=== PATIENT | female | born 1995 | race Caucasian/White ===

== ENCOUNTER 2022-12-30 18:08 | Observation (INO) | payer BC, SELFPAY ==
[2022-12-30 18:32] VITALS: BMI 39.5
--- NOTE | 2022-12-30 18:32 | OBADM ---
This patient, YANN SANTILLAN, admitted to the OB room Labor/Delivery/Recovery 104 for observation. Patient/family oriented to hospital policies and general routines including ID bracelet, bed and alarms, visiting hours, pain management, procedures, bathroom and other care routines, personal items, smoking policy, room service/diet, and visiting hours. Patient/Family are encouraged to report perceived risks to care and to ask questions if they do not understand what they are told or what they should do.
--- NOTE | 2023-01-02 21:51 | PM.OBTRLD ---
OB - Triage/Final Diagnosis Visit Information Reason for evaluation: threatened labor Comments/Additional reasons for admission: I have assessed the risk for this patient, Vera Pack, and determined that she would benefit from observation care.
== END 2022-12-30 18:52 | disposition home or self-care (01) ==
PROVIDERS: Admitting Provider Obstetrics & Gynecology Gynecology; Visit Provider Obstetrics & Gynecology Gynecology
DX: O47.03 False labor before 37 completed weeks of gestation, third trimester (principal); Z3A.35 35 weeks gestation of pregnancy
CPT/HCPCS: G0378; G0379

== ENCOUNTER 2023-01-06 17:36 | Observation (INO) | payer BC, SELFPAY ==
[2023-01-06 18:04] VITALS: BP 121/83; PULSE 88
[2023-01-06 18:10] LABS: Appearance Urine Clear (Clear); Bilirubin Urine Negative (Negative); Blood Urine Negative (Negative); Color Urine Yellow (Yellow); Glucose Urine UA Negative (Negative); Ketones Urine Negative (Negative); Leukocyte Esterase Ur Negative LEU/UL (Negative); Nitrate Urine Negative (Negative); Protein Urine Negative (Negative); Urobilinogen Urine 0.2 mg/dL (<2.0)
[2023-01-06 18:15] VITALS: BP 121/80; PULSE 87
[2023-01-06 18:16] LABS: Add Urine Microscopic? NO
--- NOTE | 2023-01-06 19:09 | OBADM ---
This patient, Vera Pack, admitted to the OB room OB Post 112 for observation. Patient/family oriented to hospital policies and general routines including ID bracelet, bed and alarms, visiting hours, pain management, procedures, bathroom and other care routines, personal items, smoking policy, room service/diet, and visiting hours. Patient/Family are encouraged to report perceived risks to care and to ask questions if they do not understand what they are told or what they should do.
--- NOTE | 2023-01-09 19:26 | P.PNOB_ITS ---
OB - Triage/Final Diagnosis Visit Information Reason for evaluation: threatened labor Comments/Additional reasons for admission: I have assessed the risk for this patient, Vera Pack, and determined that she would benefit from observation care. Evaluation Laboratory results: Laboratory Tests 01/06/23 18:00 Urine Color Yellow Urine Appearance Clear Urine pH 7.0 Ur Specific [place] 1.010 Urine Protein Negative Urine Glucose (UA) Negative Urine Ketones Negative Ur Blood (Man) Negative Urine Nitrate Negative Urine Bilirubin Negative Urine Urobilinogen 0.2 Leukocyte Esterase Rfl Negative
== END 2023-01-06 19:20 | disposition home or self-care (01) ==
PROVIDERS: Admitting Provider Obstetrics & Gynecology Gynecology; PCP Physician Assistant; Visit Provider Obstetrics & Gynecology Gynecology
DX: O47.9 False labor, unspecified (principal); Z3A.00 Weeks of gestation of pregnancy not specified
CPT/HCPCS: 81003; G0378; G0379

== ENCOUNTER 2023-01-23 04:55 | Inpatient (IN) | payer BC, SELFPAY ==
[2023-01-23] VITALS (245 sets, daily range): BP systolic 114–160; BP diastolic 65–121; PULSE 65–112; RESP 16; TEMP 36.5–37.2; O2SAT 96–100; BMI 39.1
--- NOTE | 2023-01-23 05:49 | LDADM ---
This patient, Vera Pack, was admitted to Labor/Delivery/Recovery 104 on 01/23/23 at 04:55. Plans for labor, pain management and were discussed with patient. Patient/family oriented to hospital policies and general routines including ID bracelet, bed and alarms, visiting hours, pain management, procedures, bathroom and other care routines, personal items, smoking policy, room service/diet and guest tray routines, security routines, and visiting hours. Patient/Family are encouraged to report perceived risks to care and to ask questions if they do not understand what they are told or what they should do. See OBIX for further documentation.
[2023-01-23 06:06] LABS: Basophils Percent Auto 0.1 % (0.2-1.2); Eosinophils Absolute Auto 0.1 K/mm3 (0-0.3); Eosinophils Percent Auto 0.7 % (0-4.4); Hematocrit 34.3 % (37.0-47.0); Hemoglobin 10.7 g/dL (12.0-15.0); Immature Granulocyte Absolute 0.04 K/mm3 (0.00-0.031); Immature Granulocyte Percent A 0.5 % (0-0.5); Lymphocytes Absolute Auto 1.72 K/mm3 (0.9-3.2); Lymphocytes Percent Auto 21.2 % (18.3-44.2); Mean Corpuscular HGB Conc 31.2 g/dl (32-36); Mean Corpuscular Hemoglobin 24.2 pg (26-34); Mean Corpuscular Volume 77.4 fl (80-100); Mean Platelet Volume 11.8 fl (7.4-10.4); Monocytes Absolute Auto 0.4 K/mm3 (0.1-0.6); Monocytes Percent Auto 5.4 % (2.6-8.5); Neutrophils Absolute Auto 5.8 K/mm3 (1.3-6.7); Neutrophils Percent Auto 72.1 % (45.5-73.1); Platelet Count Result 232 k/mm3 (150-375); Red Blood Count 4.43 M/mm3 (4.2-5.4); White Blood Count 8.1 K/mm3 (4.5-10.0)
[2023-01-23] MEDS: LACTATED RINGERS 1,000 ML 125 ML IV CONT ×3 (07:07→17:45)
[2023-01-23] MEDS: OXYTOCIN 30 UNITS/NS 500 ML 30 UNITS/500 ML BAG 6 UNITS IV CONT (07:13)
[2023-01-23] MEDS: ceFAZolin 2 GM/D5W 50 ML 2 GM/50 ML BAG IVPB ×3 (07:23→23:13)
--- NOTE | 2023-01-23 07:23 | WPDANESEPP ---
Anes - Eval Pre Procedure Procedure: labor epidural Date/Time: 01/23/23 07:23 Preop Diagnosis: labor pain Pre Op Diagnosis: IOL Patient Data Age: 27 Gender: F Height: 1.55 m Weight: 94 kg Last Vital Signs Pulse 86 01/23/23 07:01 BP 140/89 01/23/23 07:01 O2 Del Method Room Air 01/23/23 05:47 Allergies Allergy/AdvReac Type Severity Reaction Status Date / Time Penicillins Allergy Hives Verified 12/31/22 12:31 shellfish derived Allergy Hives Verified 12/31/22 12:31 Home Medications Medication Instructions Recorded Confirmed Type insulin NPH isoph U-100 human 100 26 unit subcut BID 12/30/22 01/23/23 History unit/mL subcutaneous suspension (Humulin N NPH U-100 Insulin (isophane susp)) insulin lispro 100 unit/mL 24 unit subcut BID 12/30/22 01/23/23 History subcutaneous solution (Humalog U-100 Insulin) metformin 1,000 mg tablet 1,000 mg PO BID 12/30/22 01/23/23 History Laboratory Tests 01/23/23 05:51 WBC 8.1 K/mm3 (4.5-10.0) RBC 4.43 M/mm3 (4.2-5.4) Hgb 10.7 L g/dL (12.0-15.0) Hct 34.3 L % (37.0-47.0) MCV 77.4 L fl (80-100) MCH 24.2 L pg (26-34) MCHC 31.2 L g/dl (32-36) RDW 15.0 H % (11.5-14.5) Plt Count 232 k/mm3 (150-375) MPV 11.8 H fl (7.4-10.4) Immature Gran % (Auto) 0.5 % (0-0.5) Neut % (Auto) 72.1 % (45.5-73.1) Lymph % (Auto) 21.2 % (18.3-44.2) [place] % (Auto) 5.4 % (2.6-8.5) Eos % (Auto) 0.7 % (0-4.4) Baso % (Auto) 0.1 L % (0.2-1.2) Lymph # (Auto) 1.72 K/mm3 (0.9-3.2) [place] # (Auto) 0.4 K/mm3 (0.1-0.6) Eos # (Auto) 0.1 K/mm3 (0-0.3) Baso # (Auto) 0.0 K/mm3 (0.0-0.1) Abs Immat Gran (auto) 0.04 H K/mm3 (0.00-0.031) Absolute Neuts (auto) 5.8 K/mm3 (1.3-6.7) Absolute Nucleated RBC 0.0 K/mm3 (0.0-0.012) Nucleated RBC % 0.0 % (0.0-0.2) RPR Pending Blood Type A Positive Antibody Screen Negative Patient hx anesthesia problems: none Family hx anesthesia problems: none Results Review: All pre-operative results and documents have been reviewed as part of the pre-operative evaluation. [facility] Family History Family History Mother Hypertension Grandparent Hypertension Grandparent Diabetes mellitus CHF (congestive heart failure) Father Diabetes mellitus Social History Social History Smoking status: Former smoker Tobacco type: cigarettes Smoking end date: 05/23/22 Substance use: never Lack of Transportation: No Lack of Food: Never True Current Housing: I Have Housing Concerned About Future Housing: No Difficulty Paying Gas/Electric Bills: No Difficulty Paying for Meds: No Currently Unemployed: YES Education: High School Diploma/GED Difficulty w/ Childcare or Family Care: No Spiritual care concerns: No Comments patient hx: DM, obese, asthma, anxiety Exam Day of Procedure 01/23/23 07:23 Patient weight: obese Lungs: normal air movement Airway: Mallampati scale class II Neurological: alert and oriented
[2023-01-23 07:41] LABS: Glucose Point of Care 57 mg/dl (65-105)
--- NOTE | 2023-01-23 07:43 | WPDOBADMIT ---
Obstetrics - Admit Note Admission Note: record reviewed. No pertinent additions to the history and/or any subsequent changes in the physical findings that are not consistent with the expected course of the were found. Additions to the history and/or subsequent changes in the physical findings follow. Here at 39wks for MIL secondary to DM. Patient has been well controlled with her DM throughout. Normal level II u/s and good NST's. FHTs reactive. Cervix 2/50/-2 anterior. AROM with clear fluid. Continue pitocin.
[2023-01-23 08:33] LABS: Glucose Point of Care 106 mg/dl (65-105)
[2023-01-23 12:52] LABS: Glucose Point of Care 57 mg/dl (65-105)
[2023-01-23 13:47] LABS: Glucose Point of Care 63 mg/dl (65-105)
--- NOTE | 2023-01-23 16:40 | PC.NURSE ---
1411 - Introductions were made and mother shared how she would like to feed her baby with . Encouraged mother to place [id number] until the first feeding if infant is stable and to wait on the weight to help stabilize, reduce stress, and improve latching by allowing time to explore parent's chest using instincts. Education was shared on how to protect her milk supply with latching infant and/or using hand expression to remove milk if doesn't latch in the first hour, then finger feed colostrum to the infant to preserve breast focus. Demonstration given on how to hand express using tool. Resources provided with educational trifold for bonding and feeding infant. Parents voiced understanding of information and to call if there is a request for assistance.
[2023-01-23 17:14] LABS: Glucose Point of Care 62 mg/dl (65-105)
[2023-01-23 23:31] LABS: Glucose Point of Care 82 mg/dl (65-105)
[2023-01-23 23:31] LABS: Glucose Point of Care 57 mg/dl (65-105)
[2023-01-24] VITALS (198 sets, daily range): BP systolic 97–163; BP diastolic 54–125; PULSE 59–136; RESP 16–18; TEMP 36.2–37.6; O2SAT 90–100
[2023-01-24] MEDS: OXYTOCIN 30 UNITS/NS 500 ML 30 UNITS/500 ML BAG 6 UNITS IV CONT (01:42)
[2023-01-24] MEDS: LACTATED RINGERS 1,000 ML 125 ML IV CONT ×2 (01:42→09:21)
[2023-01-24] MEDS: CALCIUM CARBONATE (TUMS) 500 MG (200 MG ELEMENTAL) 400 MG PO (03:00)
[2023-01-24 04:07] LABS: Glucose Point of Care 63 mg/dl (65-105)
[2023-01-24 04:39] LABS: Glucose Point of Care 104 mg/dl (65-105)
[2023-01-24] MEDS: ceFAZolin 2 GM/D5W 50 ML 2 GM/50 ML BAG IVPB ×3 (07:13→12:25)
--- NOTE | 2023-01-24 07:48 | PM.OBPNLAB ---
Pain Control Date/time seen: 01/24/23 07:48 Pain control: epidural Comments: comfortable Pelvic Exam Dilation (cm): 5 Effacement (%): 80 station: -2 Amniotic membrane status: Ruptured Contractions Monitor mode: Internal Contraction pattern: Regular Contraction intensity: Moderate Status status: Category l Assessment and Plan Pitocin rate (mU/min): 40 Assessment: induction ongoing Comments: slow progress of labor with contractions not adequate through much of night will stop pitocin and restart after 30 minutes tracing remains cat I and afebrile ancef for GBS d/w patient if cannot get contractions adequate after this change, may need to proceed with csection
[2023-01-24 08:05] LABS: Rapid Plasma Reagin Non-Reactive (NonReactive)
[2023-01-24 08:15] LABS: Glucose Point of Care 70 mg/dl (65-105)
--- NOTE | 2023-01-24 11:51 | PM.IMHP ---
H&P: HPI History of Present Illness Date/Time: 01/24/23 11:51 Chief Complaint: Failure to progress Narrative: 27-year-old 2 para 0 aborta 1 admitted at 39 weeks for medical induction of labor secondary to type 2 diabetes. Patient's labor has been very slow to progress and she has remained stalled at 5cm for approximately 12hours. heart tones remained category 1. Contraction pattern has had periods of activity that are adequate however most of the pattern is an adequate. Patient has been on Ancef since admission for group B strep with a penicillin allergy. She has remained afebrile and vitals have been stable. It was recommended to proceed with primary for failure to progress. Patient voices understanding and agrees to proceed. labs A positive; rubella nonimmune; RPR negative; hepatitis-B surface antigen negative; group B strep positive; HIV negative. Diabetes has been managed with insulin and diet and the most recent hemoglobin A1c was 5.4. Nonstress tests have been reactive and growth has been at approximately the 75th percentile. Review of Systems Review of Systems: not repeated day of surgery; patient states no changes in status [facility] Family History Family History Mother Hypertension Grandparent Hypertension Grandparent Diabetes mellitus CHF (congestive heart failure) Father Diabetes mellitus Social History Social History Smoking status: Former smoker Tobacco type: cigarettes Smoking end date: 05/23/22 Substance use: never Lack of Transportation: No Lack of Food: Never True Current Housing: I Have Housing Concerned About Future Housing: No Difficulty Paying Gas/Electric Bills: No Difficulty Paying for Meds: No Currently Unemployed: YES Education: High School Diploma/GED Difficulty w/ Childcare or Family Care: No Spiritual care concerns: No Meds Home Medications and Allergies Home Medications Medication Instructions Recorded Confirmed Type insulin NPH isoph U-100 human 100 26 unit subcut BID 12/30/22 01/23/23 History unit/mL subcutaneous suspension (Humulin N NPH U-100 Insulin (isophane susp)) insulin lispro 100 unit/mL 24 unit subcut BID 12/30/22 01/23/23 History subcutaneous solution (Humalog U-100 Insulin) metformin 1,000 mg tablet 1,000 mg PO BID 12/30/22 01/23/23 History Allergies Allergy/AdvReac Type Severity Reaction Status Date / Time Penicillins Allergy Hives Verified 12/31/22 12:31 shellfish derived Allergy Hives Verified 12/31/22 12:31 Vital Signs Vital Signs - 24 hr 01/23/23 11:52 01/23/23 11:57 01/23/23 12:01 Temperature Pulse Rate 74 Respiratory Rate Blood Pressure 148/85 H Pulse Oximetry 100 100 01/23/23 12:02 01/23/23 12:07 01/23/23 12:12 Temperature Pulse Rate Respiratory Rate Blood Pressure Pulse Oximetry 100 100 100 01/23/23 12:16 01/23/23 12:17 01/23/23 12:22 Temperature Pulse Rate 68 Respiratory Rate Blood Pressure 140/90 Pulse Oximetry 100 100 01/23/23 12:27 01/23/23 12:31 01/23/23 12:32 Temperature Pulse Rate 70 Respiratory Rate Blood Pressure 146/81 H Pulse Oximetry 100 100 01/23/23 12:37 01/23/23 12:42 01/23/23 12:46 Temperature Pulse Rate 68 Respiratory Rate Blood Pressure 137/79 Pulse Oximetry 100 100 01/23/23 12:47 01/23/23 12:52 01/23/23 12:57 Temperature Pulse Rate Respiratory Rate Blood Pressure Pulse Oximetry 100 100 100 01/23/23 13:01 01/23/23 13:02 01/23/23 13:07 Temperature Pulse Rate 70 Respiratory Rate Blood Pressure 147/91 H Pulse Oximetry 100 100 01/23/23 13:12 01/23/23 13:17 01/23/23 13:22 Temperature Pulse Rate 70 Respiratory Rate Blood Pressure 130/78 Pulse Oximetry 100 100 100
[2023-01-24 11:55] LABS: Glucose Point of Care 58 mg/dl (65-105)
--- NOTE | 2023-01-24 11:56 | WPDHPUPDATE1 ---
History and Physical Update Update Date/Time: 01/24/23 11:56 History and Physical has been reviewed, including an updated exam of the patient. There are NO changes in the patient's condition. Risks, benefits, and alternatives have been discussed and questions answered. Patient agrees to proceed with procedure.
[2023-01-24] MEDS: AZITHROMYCIN 500 MG/NS 250 ML 500 MG/250 ML BAG 250 MG IVPB (12:10)
[2023-01-24] MEDS: DEXTROSE 50% 25 GM/50 ML SYRINGE IV PUSH (12:10)
[2023-01-24] MEDS: ONDANSETRON INJ 4 MG/2 ML VIAL IV PUSH (12:15)
--- NOTE | 2023-01-24 12:38 | P.OP_ITS ---
Procedure Note - Detailed Date of Procedure 01/24/23 Pre-op Diagnosis intrauterine at 39 weeks type 2 diabetes failure to progress in labor Post-op Diagnosis Same Procedure Performed primary low-transverse section Surgeon Laurie Crawford MD Anesthesia Epidural Findings female infant 7lb 8oz in the left occiput posterior position with asynclitic head; Apgars 8 [id number] and 9 [id number]; normal-appearing tubes, ovaries, uterus Description of Procedure The patient is taken to the operating room and placed under anesthesia in the dorsal supine position with a leftward tilt. The IV apparently infiltrated on the way to the operating room. New IV was started. Accu-Chek just prior to leaving for the OR was 57. D50 was given IV. Once anesthesia was deemed adequate she was prepped and draped in the usual sterile fashion. A Pfannenstiel skin incision was made with a scalpel and carried down to the underlying layer of fascia with the scalpel nicking the fascia in the midline. The incision was extended laterally using Fam scissors. Ochsner was used to tent the fascia which was then dissected off using sharp and blunt dissection. The rectus muscles are in the midline and the peritoneum tented and entered with Metzenbaum scissors. The incision was extended with blunt traction. The Main O retractor was placed. The vesicouterine peritoneum was tented entered with Metzenbaum scissors and extended laterally using Metzenbaum scissors. The bladder flap was created digitally. The lower uterine segment was incised in a transverse fashion with the scalpel. The incision was extended laterally using blunt traction. The infant was brought up into the incision and delivered while the human resources executive assistant applied fundal pressure and the other human resources executive assistant and I pushed down on mons which was blocking the head delivery. head then delivered atraumatically and shoulders delivered while the human resources executive assistant continue to apply fundal pressure. Nuchal x2 was reduced. The cord was clamped and cut and the handed to the waiting nursery nurse and rotary drier feeder. Cord blood was taken for gases lab. The placenta was removed using manual traction. The uterus is cleared of all clots and debris. The uterine incision was closed using 0 Monocryl in a running locked fashion with the same suture used to imbricate. Good hemostasis is noted. The Main O retractor was removed and the fascia closed using 0 Vicryl in a running fashion. Subcutaneous tissues are irrigated and made hemostatic using Bovie cautery. Skin incision was closed using 4-0 Vicryl in a subcuticular fashion. Dermaflex was placed over the incision. Sponge, needle, and instrument counts are correct per the OR staff. Patient was awake taken to recovery in stable condition. Patient was given Ancef prior to incision and was given Zithromax during the start of the case. Estimated Blood Loss 385 Drains Yes ( Zuniga catheter) Packing No Pathology Yes ( placenta) Complications No immediate complications Condition Stable Disposition Floor
--- NOTE | 2023-01-24 12:44 | PM.OBDSVD ---
DS: Admitting Diagnosis Discharge Date 01/26/23 Admitting Diagnosis intrauterine at 39 weeks for medical induction of labor secondary to type 2 diabetes DS: Discharge Diagnosis Discharge Diagnosis (1) Failure to progress in labor: Code(s): O62.2 - Other uterine inertia Status: Acute (2) Diabetes: Code(s): E11.9 - Type 2 diabetes mellitus without complications Status: Acute (3) delivery delivered: Code(s): O82 - Encounter for delivery without indication Status: Acute OB - DS: Summary OB Procedures : NST, Ultrasound and Other ( diabetes management) OB Procedures Intrapartum: low cervical, transverse OB Procedures: : None Peripartum Data Delivery Method: Section Procedures: Procedures Operation Date: 01/24/23 12:00 <No data on this case meets the specified criteria> complications: none Status at Discharge Functional status at discharge: independent ambulation Overall status at discharge: patient is progressing back to baseline Time Spent with Patient Time attestation: Total time spent providing and/or coordinating discharge services: DS: Data Data Completed and Pending Labs on day of discharge: Labs from last 24 hours 01/24/23 01/24/23 01/24/23 11:53 08:07 04:37 POC Capillary Glucose 58 L* 70 104 RPR 01/24/23 01/23/23 01/23/23 04:04 23:28 23:02 POC Capillary Glucose 63 L 82 57 L* RPR 01/23/23 01/23/23 01/23/23 17:10 13:30 12:43 POC Capillary Glucose 62 L 63 L 57 L* RPR 01/23/23 05:51 POC Capillary Glucose RPR Non-reactive Discharge Plan Discharge Attending physician on discharge: Laurie Crawford Discharging Clinician: Laurie Crawford Anticipated Discharge Date/Time: 01/27/23 12:45 Patient Disposition: Home, Self-Care Activity: may shower, may drive after 2 weeks and pelvic rest Diet: diabetic Wound Care Instructions: incision open to air Patient Instructions: Antibiotic Form Stand Alone Forms: General Discharge Information Follow-up/Referrals: Laurie Crawford MD [Physician] - 1 Week ( and 6 week) Discharge Medications: New hydrocodone-acetaminophen 5-325 mg Tablet 1 tablet PO Q3H PRN (Reason: Moderate Pain (4-6)) Qty: 10 0RF norethindrone (contraceptive) 0.35 mg tablet 0.35 mg PO DAILY Qty: 84 3RF Discontinued metformin 1,000 mg tablet 1,000 mg PO BID Humulin N NPH U-100 Insulin 100 unit/mL suspension 26 unit SUBCUT BID Rx Instructions: 26 in the morning, 12 at HS insulin lispro [Humalog U-100 Insulin] 100 unit/mL solution 24 unit subcut BID Rx Instructions: 22 at breakfast, 24 at dinner Date of admission: 01/23/23 04:55 Primary Care Provider: Sandy,Jorge Macias Admitting Provider: Laurie Crawford Attending physician on admission: Laurie Crawford Condition: Stable
[2023-01-24 13:49] LABS: Glucose Point of Care 117 mg/dl (65-105)
--- NOTE | 2023-01-24 14:55 | OBPPTRN ---
Patient transferred to post room #284 via stretcher. Support person present. Oriented to unit, room, information board, rooming in, admission packet and security measures. Patient verbalizes understanding.
--- NOTE | 2023-01-24 15:06 | SUR.PHASEI ---
1240: epidural removed in OR
[2023-01-24] MEDS: KETOROLAC 30 MG/ML VIAL (*BKC) IV PUSH (15:25)
[2023-01-24 16:07] LABS: Glucose Point of Care 60 mg/dl (65-105)
[2023-01-24] MEDS: DOCUSATE SODIUM 100 MG CAPSULE PO (16:38)
[2023-01-24 16:47] LABS: Glucose Point of Care 116 mg/dl (65-105)
[2023-01-24 21:01] LABS: Glucose Point of Care 89 mg/dl (65-105)
[2023-01-25 04:00] VITALS: BP 116/84; PULSE 76; RESP 18; TEMP 36.4; O2SAT 98
[2023-01-25 04:41] LABS: Basophils Percent Auto 0.2 % (0.2-1.2); Eosinophils Absolute Auto 0.1 K/mm3 (0-0.3); Eosinophils Percent Auto 1.3 % (0-4.4); Hematocrit 32.5 % (37.0-47.0); Hemoglobin 9.9 g/dL (12.0-15.0); Immature Granulocyte Absolute 0.03 K/mm3 (0.00-0.031); Immature Granulocyte Percent A 0.3 % (0-0.5); Lymphocytes Absolute Auto 1.42 K/mm3 (0.9-3.2); Lymphocytes Percent Auto 16.4 % (18.3-44.2); Mean Corpuscular HGB Conc 30.5 g/dl (32-36); Mean Corpuscular Volume 78.9 fl (80-100); Mean Platelet Volume 11.8 fl (7.4-10.4); Monocytes Absolute Auto 0.6 K/mm3 (0.1-0.6); Monocytes Percent Auto 7.4 % (2.6-8.5); Neutrophils Absolute Auto 6.5 K/mm3 (1.3-6.7); Neutrophils Percent Auto 74.4 % (45.5-73.1); Platelet Count Result 187 k/mm3 (150-375); Red Blood Count 4.12 M/mm3 (4.2-5.4); Red Cell Distribution Width 15.4 % (11.5-14.5); White Blood Count 8.7 K/mm3 (4.5-10.0)
--- NOTE | 2023-01-25 07:30 | PC.NURSE ---
PT introductions made and plan of care discussed per post op c section, pain management, breast feeding, pumping and daily care activities. PT and fob both recipients of such instructions and no barriers to learning identified at this time. PT received such instructions this shift per one to one discussion mom baby care guide and demonstrations. PT verbalized understanding of such care.
[2023-01-25] MEDS: SIMETHICONE 80 MG TAB.CHEW PO ×2 (09:20→15:29)
[2023-01-25] MEDS: POLYSACCHARIDE IRON COMPLEX 150 MG CAPSULE PO ×2 (09:21→15:28)
[2023-01-25] MEDS: IBUPROFEN 600 MG TABLET PO ×2 (09:21→15:26)
[2023-01-25] MEDS: DOCUSATE SODIUM 100 MG CAPSULE PO ×2 (09:22→15:28)
[2023-01-25] MEDS: MULTIVIT/MIN/PREN/FOL AC/IRON TABLET 1 TAB PO (09:22)
[2023-01-25] MEDS: HYDROcodone/acetaminophen (*CRX) 10-325 MG TABLET 1 TAB PO (09:22)
[2023-01-25] MEDS: LIDOCAINE 5% PATCH 1 PATCH TRANSDERM (09:23)
[2023-01-25] MEDS: LANOLIN (LANSINOH) 7.5 GM CREAM 1 APPLIC TOPICAL (09:23)
[2023-01-25 09:30] VITALS: BP 128/72; PULSE 72; RESP 18; TEMP 36.9; O2SAT 99
--- NOTE | 2023-01-25 09:46 | PM.OBPNVD ---
OB - PN: Subj Subjective Date/time seen: 01/25/23 09:46 Patient comments: no complaints and pain well controlled baby status: doing well OB - PN: Obj Data Labs 01/25/23 03:15 Labs: Laboratory Results - last 24 hr 01/24/23 01/24/23 01/24/23 11:53 12:18 15:31 WBC RBC Hgb Hct MCV MCH MCHC RDW Plt Count MPV Immature Gran % (Auto) Neut % (Auto) Lymph % (Auto) [place] % (Auto) Eos % (Auto) Baso % (Auto) Lymph # (Auto) [place] # (Auto) Eos # (Auto) Baso # (Auto) Abs Immat Gran (auto) Absolute Neuts (auto) Absolute Nucleated RBC Nucleated RBC % POC Capillary Glucose 58 L* 117 H 60 L 01/24/23 01/24/23 01/25/23 16:41 20:58 03:15 WBC 8.7 RBC 4.12 L Hgb 9.9 L Hct 32.5 L MCV 78.9 L MCH 24.0 L MCHC 30.5 L RDW 15.4 H Plt Count 187 MPV 11.8 H Immature Gran % (Auto) 0.3 Neut % (Auto) 74.4 H Lymph % (Auto) 16.4 L [place] % (Auto) 7.4 Eos % (Auto) 1.3 Baso % (Auto) 0.2 Lymph # (Auto) 1.42 [place] # (Auto) 0.6 Eos # (Auto) 0.1 Baso # (Auto) 0.0 Abs Immat Gran (auto) 0.03 Absolute Neuts (auto) 6.5 Absolute Nucleated RBC 0.0 Nucleated RBC % 0.0 POC Capillary Glucose 116 H 89 OB - PN A/P Assessment and Plan (1) Diabetes: Code(s): E11.9 - Type 2 diabetes mellitus without complications Status: Acute Assessment and Plan: Holding Metformin for low sugars Plan day: 1 Plan: routine care Time Spent With Patient Time: Total time spent is greater than 50% in coordination of care (as documented) at patient's floor/unit and/or counseling patient: Exam Narrative: inc c/d/i : Bimanual exam- vagina & uterus: other (Uterus firm, nt @U)
[2023-01-25 10:57] LABS: Glucose Point of Care 120 mg/dl (65-105)
--- NOTE | 2023-01-25 13:13 | WPDANLDPN2 ---
Anes-Prog Note L&D Date/Time: 01/25/23 13:13 Comfortable throughout: section Neuraxial method: epidural Epidural/Spinal procedure site: clean & non-tender Neuro status: Neuro function grossly intact. Cardiovascular status: normal Respiratory status: normal Airway patency: baseline Mental status: baseline Post-Op hydration status: normal Vital Signs: Last Vital Signs Temp 36.9 C 01/25/23 09:30 Pulse 72 01/25/23 09:30 Resp 18 01/25/23 09:30 BP 128/72 01/25/23 09:30 Pulse Ox 99 01/25/23 09:30 O2 Del Method Room Air 01/25/23 09:30 Pain score (VAS): 3/10 I/O: Intake & Output 01/24/23 01/25/23 01/25/23 23:59 07:59 15:59 Intake Total 480 Output Total 250 1175 Balance -250 -1172 480 Post-procedural complaints: none Patient feedback: Patient satisfied with anesthetic care.
[2023-01-25] MEDS: HYDROcodone/acetaminophen (*CRX) 5-325 MG TABLET 1 TAB PO ×2 (15:27→19:32)
[2023-01-25 17:26] LABS: Glucose Point of Care 112 mg/dl (65-105)
[2023-01-25 18:57] LABS: Glucose Point of Care 102 mg/dl (65-105)
[2023-01-25 20:00] VITALS: BP 134/81; PULSE 70; RESP 18; TEMP 36.7; O2SAT 98
--- NOTE | 2023-01-26 07:00 | PC.NURSE ---
PT introductions made and plan of care discussed per post op c section, pain management, breast feeding, pumping and daily care activities and pending discharge to home. PT and fob both recipients of such instructions and no barriers to learning identified at this time. PT received such instructions this shift per one to one discussion mom baby care guide and demonstrations. PT verbalized understanding of such care.
--- NOTE | 2023-01-26 08:01 | PM.OBPNVD ---
OB - PN: Subj Subjective Date/time seen: 01/26/23 08:01 Patient comments: no complaints, pain well controlled, incisional pain and tolerating diet [place] baby status: doing well OB - PN: Obj Data Labs 01/25/23 03:15 Labs: Laboratory Results - last 24 hr 01/25/23 01/25/23 01/25/23 10:54 17:23 18:53 POC Capillary Glucose 120 H 112 H 102 OB - PN A/P Plan day: 2 Plan: routine care, discharge home and other (Plans micronor for bc) Time Spent With Patient Time: Total time spent is greater than 50% in coordination of care (as documented) at patient's floor/unit and/or counseling patient: Exam Narrative: inc c/d/i : Bimanual exam- vagina & uterus: other (Uterus firm, nt @U)
[2023-01-26 09:45] VITALS: BP 151/93; PULSE 81; RESP 18; TEMP 37.6; O2SAT 100
[2023-01-26] MEDS: SIMETHICONE 80 MG TAB.CHEW PO (09:53)
[2023-01-26] MEDS: LIDOCAINE 5% PATCH 1 PATCH TRANSDERM (09:53)
[2023-01-26] MEDS: IBUPROFEN 600 MG TABLET PO (09:53)
[2023-01-26] MEDS: POLYSACCHARIDE IRON COMPLEX 150 MG CAPSULE PO (09:54)
[2023-01-26] MEDS: MULTIVIT/MIN/PREN/FOL AC/IRON TABLET 1 TAB PO (09:54)
[2023-01-26] MEDS: DOCUSATE SODIUM 100 MG CAPSULE PO (09:54)
[2023-01-26] MEDS: HYDROcodone/acetaminophen (*CRX) 5-325 MG TABLET 1 TAB PO (09:54)
--- NOTE | 2023-01-26 10:15 | PC.NURSE ---
Patient viewed the discharge video Mother & Baby Care, The First Two Weeks . Patient was given the opportunity and encouraged to ask questions. Patient verbalized understanding of information shared and has been given the mother/baby guide for home reference. PT received discharge instructions per protocol and verbalized understanding of such care.
[2023-01-26] MEDS: MEASLES,MUMPS,RUBELLA VACCINE 0.5 ML VIAL (10:40)
--- NOTE | 2023-01-26 10:45 | PC.NURSE ---
Patient discharged to home ambulatory accompanied by fob and and taken to waiting car. Follow up appts confirmed
[2023-01-27 14:22] VITALS: BP 144/85; PULSE 85; RESP 18; TEMP 37.2; O2SAT 100
== END 2023-01-26 10:45 | disposition home or self-care (01) | DRG 788 ==
LOC: ANHLDR 01-24 12:45 → ANHOB2 01-24 15:00
PROVIDERS: Admitting Provider Obstetrics & Gynecology Gynecology; PCP Physician Assistant; Visit Provider Obstetrics & Gynecology Gynecology
PROC: 10D00Z1 Extraction of Products of Conception, Low, Open Approach (ICD-10-PCS; CPT 59514; principal; 2023-01-24 12:00)
DX: O24.12 Pre-existing type 2 diabetes mellitus, in childbirth (principal); Z37.0 Single live birth; Z3A.39 39 weeks gestation of pregnancy; O99.824 Streptococcus B carrier state complicating childbirth; O69.81X0 Labor and delivery complicated by cord around neck, without compression, not applicable or unspecified; O62.2 Other uterine inertia
CPT/HCPCS: 36415; 82948; 85025; 86592; 86850; 86900; 86901; 88307; 90710; A9270; J0456; J0690; J1885; J2274; J2405; J2590; J2795; J7120

== ENCOUNTER 2023-08-15 12:57 | Emergency (ER) | payer BC, SELFPAY ==
--- NOTE | ~2023-08-15 | US_ITS ---
CORRECTED REPORT corrected exam description [facility] This report was recreated on 08/18/23. Original report was NCE WHEEL ARM BURNISHER EXAMINATION: US OB transvaginal DATE: 08/15/2023 17:29 INDICATION: Threatened miscarriage. TECHNIQUE: Real-time transabdominal and transvaginal pelvic ultrasound was performed. COMPARISON: None. FINDINGS: TRANSABDOMINAL ULTRASOUND: The uterus measures 8.5 x 4.8 x 4.4 cm. TRANSVAGINAL ULTRASOUND: The endometrial complex measures 2.1 cm in thickness. There is no visible intrauterine gestational sac. The right ovary measures 3.6 x 2.2 x 3.3 cm. The left ovary measures 3.6 x 2.3 x 3.5 cm. There is physiologic free fluid in the pelvis. IMPRESSION: 1. No visible intrauterine gestational sac, which may be normal in early . Spontaneous , ectopic , and gestational trophoblastic disease cannot be excluded. Serial beta hCGs are recommended. Reviewed, dictated and finalized at location E. NCE WHEEL ARM BURNISHER MTDD IMPRESSION: 1. No visible intrauterine gestational sac, which may be normal in early pregn claude. Spontaneous , ectopic , and gestational trophoblastic di sease cannot be excluded. Serial beta hCGs are recommended.
[2023-08-15 12:59] VITALS: BP 145/85; PULSE 84; RESP 17; TEMP 36.6; O2SAT 100
--- NOTE | 2023-08-15 15:16 | ED.FEMALEGU ---
HPI - Female Genitourinary General Chief complaint: Vaginal Bleeding Stated complaint: 6 weeks preg vag bleed Time Seen by Provider: 08/15/23 15:16 Source: patient Mode of arrival: ambulatory Limitations: no limitations History of Present Illness HPI Narrative: Vera is a 27-year-old female patient presenting to the ER today with complaints of vaginal bleeding. She reports that she is 6 weeks is having some lower abdominal cramping as well. Denies any urinary symptoms. States that she has seen her OBGYN-Yvette and her beta hCG was over 800 at that time. Related Data Allergies Allergy/AdvReac Type Severity Reaction Status Date / Time Penicillins Allergy Hives Verified 12/31/22 12:31 shellfish derived Allergy Hives Verified 12/31/22 12:31 Review of Systems Review of Systems: Pertinent positives per HPI. Patient denies any fever, chills, rash, headache, visual changes, dizziness, cough, runny nose, sore throat, shortness of breath, chest pain, palpitations, nausea, vomiting, diarrhea, constipation, or any urinary issues. [facility] Family History Family History Mother Hypertension Grandparent Hypertension Grandparent Diabetes mellitus CHF (congestive heart failure) Father Diabetes mellitus Social History Social History Smoking status: Former smoker Tobacco type: cigarettes Smoking end date: 05/23/22 Substance use: never Lack of Transportation: No Lack of Food: Never True Current Housing: I Have Housing Concerned About Future Housing: No Difficulty Paying Gas/Electric Bills: No Difficulty Paying for Meds: No Currently Unemployed: YES Education: High School Diploma/GED Difficulty w/ Childcare or Family Care: No Spiritual care concerns: No Comments At the time of my signature, I reviewed and agree with the nursing past medical, surgical, social, and family history. There is no relevant family history pertinent to the patient complaint. Course Course Emergency Course: Portions of this record may have been created with voice recognition software. Vital Signs Vital signs: Vital Signs Temperature 36.6 C 08/15/23 12:59 Pulse Rate 84 08/15/23 12:59 Respiratory Rate 17 08/15/23 12:59 Blood Pressure 145/85 H 08/15/23 12:59 Pulse Oximetry 100 08/15/23 12:59 Temperature 36.6 C 08/15/23 12:59 Pulse Rate 84 08/15/23 12:59 Respiratory Rate 17 08/15/23 12:59 Blood Pressure 145/85 H 08/15/23 12:59 Pulse Oximetry 100 08/15/23 12:59 Vital signs reviewed MDM - Female Genitourinary MDM Narrative Medical decision making narrative: At the time of visit patient is resting comfortably on the exam table. Patient appears to be nontoxic. Labs: CBC shows white blood cell count of 9.4, H&H is 13.5 in 42.9, platelet count is 248, anti coagulation studies within normal limits, chemistry show sodium level 135, potassium of 4.2, chloride 102, CO2 of 24, BUN of 12, creatinine 0.7, GFR is greater than 60, glucose is 212, liver function test within normal limits, beta-hCG is 662. UA shows red urine with turbid appearance 2+ protein, trace of glucose, 2+ blood, 1+ bili, and 1+ leuko Estrace. Blood type is A positive within it negative antibody screen. Diagnostics: ultrasound shows no obvious gestational sac but could be due to early Plan: Contacted Dr. Christensen and ran patient's case by him and he is agreeable to have a repeat beta-hCG completed in 2 days patient comes follow-up with her OBGYN Yvette on Friday. Supportive measures were discussed with the patient and they voiced understanding discharge instructions and agrees to treatment plan. Return precautions reviewed Differential Diagnosis Differential diagnosis: Likely urinary tract infection and other (Threatened miscarriage) Lab Data 08/15/23 16:19 08/15
[2023-08-15 16:29] LABS: Basophils Percent Auto 0.3 % (0.2-1.2); Eosinophils Absolute Auto 0.2 K/mm3 (0-0.3); Eosinophils Percent Auto 2.3 % (0-4.4); Hematocrit 42.9 % (37.0-47.0); Hemoglobin 13.5 g/dL (12.0-15.0); Immature Granulocyte Absolute 0.02 K/mm3 (0.00-0.031); Immature Granulocyte Percent A 0.2 % (0-0.5); Lymphocytes Absolute Auto 2.13 K/mm3 (0.9-3.2); Lymphocytes Percent Auto 22.7 % (18.3-44.2); Mean Corpuscular HGB Conc 31.5 g/dl (32-36); Mean Corpuscular Hemoglobin 25.1 pg (26-34); Mean Corpuscular Volume 79.9 fl (80-100); Mean Platelet Volume 10.1 fl (7.4-10.4); Monocytes Absolute Auto 0.5 K/mm3 (0.1-0.6); Monocytes Percent Auto 5.1 % (2.6-8.5); Neutrophils Absolute Auto 6.5 K/mm3 (1.3-6.7); Neutrophils Percent Auto 69.4 % (45.5-73.1); Platelet Count Result 248 k/mm3 (150-375); Red Blood Count 5.37 M/mm3 (4.2-5.4); White Blood Count 9.4 K/mm3 (4.5-10.0)
[2023-08-15 16:38] LABS: Alanine Aminotransferase 34 U/L (6-35); Albumin Level 4.2 g/dL (3.5-5.1); Alkaline Phosphatase 65 U/L (38-126); Anion Gap 9 mmol/L (8-16); Aspartate Amino Transferase 25 U/L (14-36); Bilirubin,Total 0.3 mg/dL (0.2-1.3); Blood Urea Nitrogen 12 mg/dL (7-17); Calcium 9.5 mg/dL (8.4-10.2); Carbon Dioxide 24 mmol/L (22-30); Chloride 102 mmol/L (98-107); Estimated CRCL calculation 107 ml/min; Estimated Glomerular Filt Rate > 60; Glucose 212 mg/dL (65-110); Potassium 4.2 mmol/L (3.4-5.0); Sodium 135 mmol/L (137-145)
[2023-08-15 16:56] LABS: Prothrombin Time 13.5 Seconds (11.1-14.7)
[2023-08-15 16:57] LABS: Appearance Urine Turbid (Clear); Bilirubin Urine 1+ (Negative); Blood Urine 2+ (Negative); Color Urine Red (Yellow); Glucose Urine UA Trace mg/dL (Negative); Ketones Urine Negative (Negative); Leukocyte Esterase Ur 1+ LEU/UL (Negative); Nitrate Urine Negative (Negative); Partial Thromboplastin Time 26.6 SECONDS (22.3-36.8); Protein Urine 2+ mg/dL (Negative); Specific Grav Ur 1.024 (1.001-1.035); Urobilinogen Urine 0.2 mg/dL (<2.0)
[2023-08-15 16:58] LABS: Add Urine Microscopic? NO
[2023-08-15 18:20] VITALS: BP 125/85; PULSE 90; RESP 16; O2SAT 100
== END 2023-08-15 18:20 | disposition home or self-care (01) ==
PROVIDERS: Emergency Provider Nurse Practitioner Family
DX: O20.0 Threatened abortion (principal); Z87.891 Personal history of nicotine dependence; Z3A.01 Less than 8 weeks gestation of pregnancy
CPT/HCPCS: 36415; 76801; 76817; 80053; 81003; 81025; 84702; 85025; 85461; 85610; 85730; 86850; 86900; 86901; 99284

== ENCOUNTER 2023-08-17 11:40 | Outpatient (CLI) | payer BC, SELFPAY | END 2023-08-17 11:41 | disposition home or self-care (01) | PROVIDERS: Referring Provider Obstetrics & Gynecology Gynecology; Visit Provider Nurse Practitioner Family | DX: O20.0 Threatened abortion (principal); Z3A.00 Weeks of gestation of pregnancy not specified | CPT/HCPCS: 36415; 84702 ==

== ENCOUNTER 2024-01-23 11:41 | Outpatient (CLI) | payer OTHER, SELFPAY ==
--- NOTE | ~2024-01-23 | US_ITS ---
EXAMINATION: US OB transvaginal DATE: 01/23/2024 12:19 INDICATION: Uncertain viability. TECHNIQUE: Real-time transvaginal pelvic ultrasound was performed. COMPARISON: Ultrasound 08/15/2023 FINDINGS: The uterus measures 8.5 x 5.2 x 5.6 cm. There is an intrauterine gestational sac. A yolk sac is ident ified. The crown rump length measures 7 mm, which correlates with an estimated gestational age of 6 weeks and 4 day(s) (+/-) 4 day(s). heart motion is identified measuring 139 beats per min [place] (bpm) by M-mode Doppler. The right ovary measures 4.0 x 3.1 x 2.5 cm. The left ovary measures 3.3 x 2.0 x 3.0 cm. There is no free fluid in the pelvis. IMPRESSION: 1. Single living intrauterine gestation with estimated date of delivery of 09/13/2024. Reviewed, dictated and finalized at location A. IMPRESSION: 1. Single living intrauterine gestation with estimated date of delivery of 08/22.
== END 2024-01-23 11:42 ==
PROVIDERS: PCP Physician Assistant; Visit Provider Obstetrics & Gynecology Gynecology
DX: O36.80X0 Pregnancy with inconclusive fetal viability, not applicable or unspecified (principal); Z3A.00 Weeks of gestation of pregnancy not specified
CPT/HCPCS: 76817

== ENCOUNTER 2024-06-10 08:48 | Outpatient (CLI) | payer OTHER, SELFPAY ==
[2024-06-10 09:31] VITALS: BP 116/73; PULSE 90
[2024-06-10 09:44] VITALS: BP 116/73; PULSE 90
[2024-06-10 09:55] LABS: OBXCEM ROM Plus Negative (Negative)
== END 2024-06-10 09:55 | disposition home or self-care (01) ==
LOC: ANHOBOP 08:53 → ANHOBPP 09:01
PROVIDERS: PCP Physician Assistant; Visit Provider Obstetrics & Gynecology Gynecology
DX: O42.90 Premature rupture of membranes, unspecified as to length of time between rupture and onset of labor, unspecified weeks of gestation (principal); Z3A.00 Weeks of gestation of pregnancy not specified
CPT/HCPCS: 59025; 84112; 99199

== ENCOUNTER 2024-08-05 17:12 | Outpatient (CLI) | payer OTHER, SELFPAY ==
--- OUTSIDE RECORDS SUMMARY | 2024-08-05 17:19 | XMS_ITS | Clinical Summary ---
Author Organization [facility] Address [address] [place] [address] Care Team Providers Care Wheat Cleaner Name Role Phone Unavailable Primary Care Provider Unavailabl e Source Comments [facility],non-owned Affiliates and Associated Physician Practices is amultiple site organization consisting of ambulatory clinics and hospital sitesin [place], [place], [place] and [place]. This disclosure is being madepursuant to the Care Everywhere program and may not contain all information available regarding this patient. Last updated 18.[facility] Social History Tobacco Use Types Packs/Day Years Used Date Smoking Tobacco: Never Assessed Sex and Gender Information Value Date Recorded Sex Assigned at Not on file Gender Identity Not on file Sexual Orientation Not on file Plan of Treatment Health Maintenance Due Date Last Done Comments PAP SMEAR 1994 HIV SCREENING 2009 HEPATITIS C SCREENING 09/01/2012 DTAP/TDAP/TD VACCINES (1 - Tdap) 2013 HEPATITIS B VACCINE (1 of 3 - 19+ 3-dose series) 2013 COVID-19 VACCINE ( - 2023-2 5 season) 2024 INFLUENZA VACCINE (#1) 2024 DEPRESSION SCREENING 06/23/2024 ZOSTER VACCINE (1 of 2) 2044 HIB VACCINE Aged Out No longer eligi ble based on patient's age to complete this topic HPV VACCINE Aged Out No longer eligi ble based on patient's age to complete this topic MENINGOCOCCAL (Group B) VACCINE Aged Out No longer eligible based on patient's age to complete this topic MENINGOCOCCAL VACCINE Aged Out No deepika joe eligible based on patient's age to complete this topic PNEUMOCOCCAL VACCINE Aged Out No long er eligible based on patient's age to complete this topic
--- OUTSIDE RECORDS SUMMARY | 2024-08-05 17:19 | XMS_ITS | Encounter Summary ---
Author Organization [facility] Address [address] [place] [address] Care Team Providers Care Expanded Duty Dental Assistant Name Role Phone Unavailable Primary Care Provider Unavailabl e Encounter Details Date Type Department Care Team (Late st Contact Info) Description 09/04/2021 Lab Requisition [facility] [address] [place] [address] Unknown, Provider Social History Tobacco Use Types Packs/Day Years Used Date Smoking Tobacco: Never Assessed Sex and Gender Information Value Date Recorded Sex Assigned at Not on file Gender Identity Not on file Sexual Orientation Not on file documented as of this encounter Plan of Treatment Not on file documented as of this encounter Procedures Procedure Name Priority Date/Time Associated Diagnosis Comments HCG BETA BLOOD QUANTITATIVE STAT 09/04/2021 3:10 PM CDT documented in this encounter Results * HCG BETA BLOOD QUANTITATIVE (09/04/2021 3:10 PM CDT) hCG Quantitative <1.20 mIU/mL 09/05/19 7:42 PM CDT [facility] Blood BLOOD SPECIMEN / Unknown Venipuncture / Unknown 09/04/2021 3:10 PM CDT 09/04/2021 6:51 PM CDT Narrative [facility] - 09/04/2021 7:42 PM CDT hCG Reference Range, mIU/mL: Males 0-2.0 Non Females 0-6.0 Perimenopausal Females ages 41-55* 0-7.7 Postmenopausal Females age >55* 0-14 Females, Weeks after Last Menstrual Period 0.2-1 week 5-50 1 - 2 weeks 50-500 2 - 3 weeks 100-5000 3 - 4 weeks 500-10,000 4 - 5 weeks 1000-50,000 5 - 6 weeks 10,000-100,000 6 - 8 weeks 15,000-200,000 2 - 3 months 10,000-100,000 Trophoblastic Disease >100,000 *In higher than expected hCG in females > age 40, a serum FSH >20 IU/L makes unlikely. Provider Unknown LAB - CHEMISTRY MELI ARENAS [facility] [place] Organization Address City/State/[facility] Co de Phone Number [facility] [address] [place], [place] [phone] documented in this encounter Visit Diagnoses Not on filedocumented in this encounter
--- OUTSIDE RECORDS SUMMARY | 2024-08-05 17:19 | XMS_ITS | Encounter Summary ---
Author Organization [facility] Address [address] [facility] [address] [place] [address] Care Team Providers Care Whipper Name Role Phone Unavailable Primary Care Provider Unavailabl e Encounter Details Date Type Department Care Team (Late st Contact Info) Description 08/14/2021 Lab Requisition [facility] [address] [place] [address] Jaden Lyons MD [address] [facility] [address] [place] [address] Social History Tobacco Use Types Packs/Day Years Used Date Smoking Tobacco: Never Assessed Sex and Gender Information Value Date Recorded Sex Assigned at Not on file Gender Identity Not on file Sexual Orientation Not on file documented as of this encounter Plan of Treatment Not on file documented as of this encounter Procedures Procedure Name Priority Date/Time Associated Diagnosis Comments CBC W AUTO DIFFERENTIAL STAT 08/14/2021 10:52 AM TAPPER SUPERVISOR COMPREHENSIVE METABOLIC PANEL STAT 08/14/2021 10:52 AM TAPPER SUPERVISOR documented in this encounter Results * (ABNORMAL) CBC WITH DIFFERENTIAL (08/14/2021 10:52 AM TAPPER SUPERVISOR) WBC 9.7 4.4 - 10.7 x10E9/L 08/14/2021 11:03 AM TAPPER SUPERVISOR [facility] WBC Corrected 08/14/2021 11:03 AM TAPPER SUPERVISOR [facility] RBC 5.21(H) 3.80 - 5.20 x10E12/L 08/14/2021 11:03 AM TAPPER SUPERVISOR [facility] Hemoglobin 14.1 12.0 - 15.6 gm/dL 08/14/2021 11:03 AM TAPPER SUPERVISOR [facility] Hematocrit 43.3 35.9 - 45.5 % 08/14/2021 11:03 AM TAPPER SUPERVISOR [facility] MCV 83.1 80.7 - 98.3 fl 08/14/2021 11:03 AM [facility] MCH 27.1 26.7 - 34.0 pg 08/14/2021 11:03 AM [facility] MCHC 32.6 30.8 - 35.9 gm/dL 08/14/2021 11:03 AM [facility] Platelet Count 273 153 - 416 x10E9/L 08/14/2021 11:03 AM [facility] RDW-CV 12.4 12.1 - 14.9 % 08/14/2021 11:03 AM [facility] MPV 10.6 9.4 - 12.9 fl 08/14/2021 11:03 AM [facility] Neutrophils % 69.1 44.0 - 73.0 % 08/14/2021 11:03 AM [facility] Lymphocytes % 23.0 20.0 - 43.0 % 08/14/2021 11:03 AM [facility] Monocytes % 5.4 5.0 - 13.0 % 08/14/2021 11:03 AM [facility] Eosinophils % 1.8 0.0 - 6.0 % 08/14/2021 11:03 AM [facility] Basophils % 0.4 0.0 - 2.0 % 08/14/2021 11:03 AM [facility] Immature Granulocytes 0.3 0 - 1 % 08/14/2021 11:03 AM [facility] Neutrophil Absolute 6.72 2.01 - 7.14 x10E9/L 08/14/2021 11:03 AM [facility] Lymphocytes Absolute 2.23 1.07 - 3.94 x10E9/L 08/14/2021 11:03 AM [facility] Monocytes Absolute 0.52 0.26 - 1.07 x10E9/L 08/14/2021 11:03 AM [facility] Eosinophils Absolute 0.17 0 - 0.47 x10E9/L 08/14/2021 11:03 AM [facility] Basophils Absolute 0.04 0 - 0.08 x10E9/L 08/14/2021 11:03 AM [facility] Immature Granulocytes Absolute 0.03 0.00 - 0.06 x10E9/L 08/14/2021 11:03 AM [facility] nRBC Auto 0 /100 WBC 08/14/2021 11:03 AM [facility] Blood BLOOD SPECIMEN / Unknown Venipuncture / Unknown 08/14/2021 10:52 AM TAPPER SUPERVISOR 08/14/2021 10:52 AM [facility] Jaden Lyons MD LAB - HEMATOLOGY ORD ERABLES [facility] [address] [place], [place] [id number] * (ABNORMAL) COMPREHENSIVE METABOLIC PANEL (08/14/2021 10:52 AM [facility]) Glucose 296(H) 70 - 105 mg/dL 08/14/2021 11:21 AM [facility] Sodium 138 136 - 145 mmol/L 08/14/2021 11:21 AM [facility] Potassium 4.4 3.5 - 5.1 mmol/L 08/14/2021 11:21 AM [facility] Chloride 102 98 - 107 mmol/L 08/14/2021 11:21 AM [facility] CO2 26 23 - 31 mmol/L 08/14/2021 11:21 AM [facility] Calcium 9.2 8.4 - 10.4 mg/dL 08/14/2021 11:21 AM [facility] Anion Gap 10 8 - 18 mmol/L 08/14/2021 11:21 AM [facility] BUN 8 7 - 18.7 mg/dL 08/14/2021 11:21 AM [facility] Creatinine 0.73 0.57 - 1.11 mg/dL 08/14/2021 11:21 AM [facility] Alkaline Phosphatase 68 40 - 150 U/L 08/14/2021 11:21 AM [facility] ALT 33 0 - 61 U/L 08/14/2021 11:21 AM [facility] AST 15 5 - 34 U/L 08/14/2021 11:21 AM [facility] Protein Total 6.6 6.4 - 8.3 gm/dL 08/14/2021 11:21 AM [facility] Albumin 4.2 3.5 - 5.2 gm/dL 08/14/2021 11:21 AM TAPPER SUPERVISOR [facility] Bilirubin Total 0.3 0.2 - 1.2 mg/dL 08/14/2021 11:21 AM TAPPER SUPERVISOR [facility] eGFR by MDRD >60 >60 mL/min/1.7 3m2 08/14/2021 11:21 AM TAPPER SUPERVISOR [facility] eGFR by MDRD >60 >60 mL/min/1.7 3m2 08/14/2021 11:21 AM TAPPER SUPERVISOR [facility] Blood BLOOD SPECIMEN / Unknown Venipuncture / Unknown 08/14/2021 10:52 AM TAPPER SUPERVISOR 08/14/2021 10:52 AM TAPPER SUPERVISOR Jaden Lyons MD LAB - CHEMISTRY MELI ARENAS [facility] Organization Address City/State/[facility] Co de Phone Number [facility] [address] [place] [address] documented in this encounter Visit Diagnoses Not on filedocumented in this encounter
--- OUTSIDE RECORDS SUMMARY | 2024-08-05 17:19 | XMS_ITS | Referral Summary ---
Author Organization [facility] Address [address] [place] [address] Care Team Providers Care Injection Operator Name Role Phone Unavailable Primary Care Provider Unavailabl e Source Comments [facility],non-owned Affiliates and Associated Physician Practices is amultiple site organization consisting of ambulatory clinics and hospital sitesin [place], [place], [place] and [place]. This disclosure is being madepursuant to the Care Everywhere program and may not contain all information available regarding this patient. Last updated 18.[facility] [employer] Social History Tobacco Use Types Packs/Day Years Used Date Smoking Tobacco: Never Assessed Sex and Gender Information Value Date Recorded Sex Assigned at Not on file Gender Identity Not on file Sexual Orientation Not on file Plan of Treatment Not on file
--- OUTSIDE RECORDS SUMMARY | 2024-08-05 17:19 | XMS_ITS | Encounter Summary ---
Author Organization [facility] Address [address] [place] [address] Care Team Providers Care Glass Forming Engineer Name Role Phone Jorge Delgado Primary Care Provider [phone] Encounter Details Date Type Department Care Team (Late st Contact Info) Description 02/15/2020 Telephone [facility] - [facility] [address] [place] [address] Ledy Foley RT Social History Tobacco Use Types Packs/Day Years Used Date Smoking Tobacco: Some Days Smokeless Tobacco: Never Alcohol Use Standard Drinks/Week Comments No 0 (1 standard drink = 0.6 oz pur e alcohol) Comments No Sex and Gender Information Value Date Recorded Sex Assigned at Not on file Legal Sex Female 1:45 AM BLACKTOP SPREADER Gender Identity Not on file Sexual Orientation Not on file documented as of this encounter Plan of Treatment Not on file documented as of this encounter Visit Diagnoses Not on filedocumented in this encounter Care Teams Glass Forming Engineer Relationship Specialty Start Date End Date Jorge Delgado PA [address] [place] [address] PCP - General 12/22/13 documented as of this encounter
--- OUTSIDE RECORDS SUMMARY | 2024-08-05 17:19 | XMS_ITS | Data Portability ---
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 Plan of Treatment Reminders Order Date Submit Date Provider Last Modified By Organization Details Last Modified Time Details Appointments None recorded. Lab PPD (purified protein derivative) , skin test 2023 024 [facility] In-Office Order, Internal Use Only DO Not Attach Compendium DO Not Attach Compendium, Do Not Delete/merge, [id number] 11:52:40 HbA1c (hemoglobin A1c), blood 2021 022 [facility] In-Office Order, Internal Use Only DO Not Attach Compendium DO Not Attach Compendium, Do Not Delete/merge, [id number] 10:58:31 lipid panel, serum 2021 022 [facility], [address] [facility] [address], [address], 19:07:50 HbA1c (hemoglobin A1c), blood 2021 022 [facility] In-Office Order, Internal Use Only DO Not Attach Compendium DO Not Attach Compendium, Do Not Delete/merge, [id number] 2 17:23:31 CMP, serum or plasma 2021 022 [facility], [address] [facility] [address], [place], [address], 2 19:07:49 CBC 2021 022 [facility], [address] [facility] [address], [place], [address], 2 19:07:49 drug screen, urine 2021 [facility], [address] [facility] [address], [place], [address], 2 10:13:13 Referral None recorded. Procedures None recorded. Surgeries None recorded. Imaging None recorded. Medication Orders sulfamethox azole 800 mg-trimetho prim 160 mg tablet 2023 024 [id number], [address] [place], [address], 4 15:34:56 metformin 500 mg tablet 2021 [facility]22 [id number] [address] [place], [address], 4 11:12:45 ProAir HFA 90 mcg/actuati on aerosol inhaler 2021 022 [id number] [address] [place], [address], 2 10:46:38 diazepam 5 mg tablet 2021 022 [id number] [address] [place], [address], 4 11:12:23 metformin 500 mg tablet 2021 022 [id number] [address] [place], [address], 4 11:12:45 albuterol sulfate 2.5 mg/3 mL (0.083 %) solution for nebulizatio n 2021 022 [id number], [address] [place], [address], 15:53:02 Patient TargetsNo targets recorded. Patient Instructions Encounter Date Encounter Id Patient Instructions Last Modified By Organization Details Last Modified Time 07/18/2021 [id number] anxiety disorder : care instructions jnanney Not available 07/18/2021 15:52:58 learning about type 2 diabetes jnanney Not available 07/18/2021 15:40:32 type 2 diabetes: care instructions jnanney Not available 07/18/2021 15:40:32 body mass index: care instructions jnanney Not available 07/18/2021 15:52:59 learning about healthy weight jnanney Not available 07/18/2021 15:52:58 07/25/2021 [id number] learning about type 2 diabetes jnanney Not available 07/25/2021 12:55:44 type 2 diabetes: care instructions jnanney Not available 07/25/2021 12:55:44 will redraw labs in 3 months jnanney Not available 07/25/2021 12:54:16 10/15/2021 [id number] learning about type 2 diabetes jnanney Not available 10/15/2021 10:45:19 type 2 diabetes: care instructions jnanney Not available 10/15/2021 10:45:19 09/08/2023 [id number] A healthy lifestyle: care instructions jnanney Not available 09/08/2023 11:32:56 learning about type 2 diabetes jnanney Not available 09/08/2023 11:32:56 type 2 diabetes: care instructions jnanney Not available 09/08/2023 11:32:56 09/19/2023 [id number] A healthy lifestyle: care instructions jnanney Not available 09/19/2023 15:34:54 Reason for Referral None Reported. Results Created Date Observation Date Name Description Value Unit Range Abnormal Flag Note LastModifiedBy Organization Detail LastModifiedTime 07/18/19 22 07/18/2021 HbA1c (hemo globi n A1c), blood HbA1c 9.3 Not Available In-Office Order Internal Use Only DO Not Attach Compendium DO Not Attach Compendium, Do Not Delete/merge, [id number] 07/18/2021 15:35:58 07/19/19 22 07/21/2021 COMP. METAB OLIC PANEL (14) glucose 301 mg/dL 65-99 above high normal Not Available [facility] ([facility]) [address] [place], [address], 07/21/2021 19:07:48 07/19/19 22 07/21/2021 COMP. METAB OLIC PANEL (14) BUN 10 mg/dL 6-20 Not Available [facility] ([facility]) [address] [place], [address], 07/21/2021 19:07:48 07/19/19 22 07/21/2021 COMP. METAB OLIC PANEL (14) creatinine 0.67 mg/dL 0.57-1 .00 Not Available [facility] ([facility]) [address] [place], [address], 07/21/2021 19:07:48 07/19/19 22 07/21/2021 COMP. METAB OLIC PANEL (14) eGFR if nonafricn AM 122 mL/mi n/1.7 3 >59 Not Available [facility] ([facility]) [address] [place], [address], 07/21/2021 19:07:48 07/19/19 22 07/21/2021 COMP. METAB OLIC PANEL (14) eGFR if africn AM 140 mL/mi n/1.7 3 >59 In accor dance with recom menda tions from the NKF-A SN Task force , [facility] is in the proce ss of updat ing its eGFR calcu latio n to the 2020 CKD-E PI creat inine equat ion that estim ates kidne y funct ion witho ut a race varia ble. Not Available [facility] ([facility]) [address] [place], [address], 07/21/2021 19:07:48 07/19/19 22 07/21/2021 COMP. METAB OLIC PANEL (14) BUN/creatini ne ratio 15 9-23 Not Available [facility] ([facility]) [address] [facility] [place], [address], 07/21/2021 19:07:48 07/19/19 22 07/21/2021 COMP. METAB OLIC PANEL (14) sodium 143 mmol/ L 134-14 4 Not Available [facility] ([facility]) [address] [facility] [place], [address], 07/21/2021 19:07:48 07/19/19 22 07/21/2021 COMP. METAB OLIC PANEL (14) potassium 4.7 mmol/ L 3.5-5. 2 Not Available [facility] ([facility]) [address] [facility] [place], [address], 07/21/2021 19:07:48 07/19/19 22 07/21/2021 COMP. METAB OLIC PANEL (14) chloride 101 mmol/ L 96-106 Not Available [facility] ([facility]) [address] [facility] [place], [address], 07/21/2021 19:07:48 07/19/19 22 07/21/2021 COMP. METAB OLIC PANEL (14) carbon dioxide, total 26 mmol/ L 20-29 Not Available [facility] ([facility]) [address] [facility] [place], [address], 07/21/2021 19:07:48 07/19/19 22 07/21/2021 COMP. METAB OLIC PANEL (14) calcium 10.3 mg/dL 8.7-10 .2 above high normal Not Available [facility] ([facility]) [address] [facility] [place], [address], 07/21/2021 19:07:48 07/19/19 22 07/21/2021 COMP. METAB OLIC PANEL (14) protein, total 7.4 g/dL 6.0-8. 5 Not Available [facility] ([facility]) [address] [facility] [place], [address], 07/21/2021 19:07:48 07/19/19 22 07/21/2021 COMP. METAB OLIC PANEL (14) albumin 4.8 g/dL 3.9-5. 0 Not Available [facility] ([facility]) [address] [facility] [place], [address], 07/21/2021 19:07:48 07/19/19 22 07/21/2021 COMP. METAB OLIC PANEL (14) globulin, total 2.6 g/dL 1.5-4. 5 Not Available [facility] ([facility]) [address] [facility] [place], [address], 07/21/2021 19:07:48 07/19/19 22 07/21/2021 COMP. METAB OLIC PANEL (14) A/G ratio 1.8 1.2-2. 2 Not Available [facility] ([facility]) [address] [facility] [place], [address], 07/21/2021 19:07:48 07/19/19 22 07/21/2021 COMP. METAB OLIC PANEL (14) bilirubin, total <0.2 mg/dL 0.0-1. 2 Not Available [facility] ([facility]) [address] [facility] [place], [address], 07/21/2021 19:07:48 07/19/19 22 07/21/2021 COMP. METAB OLIC PANEL (14) alkaline phosphatase 94 IU/L 44-121 Not Available [facility] ([facility]) [address] [facility] [place], [address], 07/21/2021 19:07:48 07/19/19 22 07/21/2021 COMP. METAB OLIC PANEL (14) AST (SGOT) 18 IU/L 0-40 Not Available [facility] ([facility]) [address] [facility], [place], [address], 07/21/2021 19:07:48 07/19/19 22 07/21/2021 COMP. METAB OLIC PANEL (14) ALT (SGPT) 33 IU/L 0-32 above high normal Not Available [facility] ([facility]) [address] [facility], [place], [address], 07/21/2021 19:07:48 07/19/19 22 07/21/2021 CBC, PLATE LET, NO DIFFE RENTI AL WBC 9.7 x10e3 /uL 3.4-10 .8 Not Available [facility] ([facility]) [address] [facility], [place], [address], 07/21/2021 19:07:49 07/19/19 22 07/21/2021 CBC, PLATE LET, NO DIFFE RENTI AL RBC 5.58 x10e6 /uL 3.77-5 .28 above high normal Not Available [facility] ([facility]) [address] [facility], [place], [address], 07/21/2021 19:07:49 07/19/1907/21/2021 CBC, PLATE LET, NO DIFFE RENTI AL hemoglobin 15.4 g/dL 11.1-1 5.9 Not Available [facility] ([facility]) [address] [place], [address], 07/21/2021 19:07:49 07/19/1907/21/2021 CBC, PLATE LET, NO DIFFE RENTI AL hematocrit 45.7 % 34.0-4 6.6 Not Available [facility] ([facility]) [address] [place], [address], 07/21/2021 19:07:49 07/19/19 22 07/21/2021 CBC, PLATE LET, NO DIFFE RENTI AL MCV 82 fL 79-97 Not Available [facility] ([facility]) [address] [place], [address], 07/21/2021 19:07:49 07/19/19 22 07/21/2021 CBC, PLATE LET, NO DIFFE RENTI AL MCH 27.6 pg 26.6-3 3.0 Not Available [facility] ([facility]) [address] [facility], [place], [address], 07/21/2021 19:07:49 07/19/19 22 07/21/2021 CBC, PLATE LET, NO DIFFE RENTI AL MCHC 33.7 g/dL 31.5-3 5.7 Not Available [facility] ([facility]) [address] [facility], [place], [address], 07/21/2021 19:07:49 07/19/19 22 07/21/2021 CBC, PLATE LET, NO DIFFE RENTI AL RDW 12.3 % 11.7-1 5.4 Not Available [facility] ([facility]) [address] [facility], [place], [address], 07/21/2021 19:07:49 07/19/19 22 07/21/2021 CBC, PLATE LET, NO DIFFE RENTI AL platelets 260 x10e3 /uL 150-45 0 Not Available [facility] ([facility]) [address] [facility], [place], [address], 07/21/2021 19:07:49 07/19/1907/21/2021 CBC, PLATE LET, NO DIFFE RENTI AL NRBC SENIOR ECOLOGIST Not Available [facility] ([facility]) [address] [facility], [place], [address], 07/21/2021 19:07:49 07/19/19 22 07/21/2021 LIPID PANEL cholesterol, total 217 mg/dL 100-19 9 above high normal Not Available [facility] ([facility]) [address] [place], [address], 07/21/2021 19:07:50 07/19/19 22 07/21/2021 LIPID PANEL triglyceride s 203 mg/dL 0-149 above high normal Not Available [facility] ([facility]) [address] [place], [address], 07/21/2021 19:07:50 07/19/19 22 07/21/2021 LIPID PANEL HDL cholesterol 48 mg/dL >39 Not Available [facility] ([facility]) [address] [place], [address], 07/21/2021 19:07:50 07/19/19 22 07/21/2021 LIPID PANEL VLDL cholesterol ronel 36 mg/dL 5-40 Not Available [facility] ([facility]) [address] [place], [address], 07/21/2021 19:07:50 07/19/19 22 07/21/2021 LIPID PANEL LDL chol calc ([facility]) 133 mg/dL 0-99 above high normal Not Available [facility] ([facility]) [address] [place], [address], 07/21/2021 19:07:50 07/19/19 22 07/21/2021 LIPID PANEL comment: SENIOR ECOLOGIST Not Available [facility] ([facility]) [address] [place], [address], 07/21/2021 19:07:50 07/19/1907/21/2021 CARDI OVASC ULAR REPOR T interpretati on Note Medic al Direc tor's Note: Priscilla guzman Last Name has been corre cted on 2021, was KAYY and now is AMY [place] w this repor t in its entir ety, since rodgers es to priscilla guzman demog raphi cs may affec t resul t inter preta tion( s) and/o r treat ment/ follo w-up sugge stion s. Suppl ement al repor t is avail able. Not Available [facility] ([facility]) [address] [facility], [address], 07/21/2021 19:07:51 07/19/19 22 07/21/2021 CARDI JOSE BARNHART REPOR T pdf . Not Available [facility] ([facility]) [address] [facility], [place], [address], 07/21/2021 19:07:51 07/19/19 22 07/31/2021 COMPL IANCE DRUG SHERYL SIS, UR summary report (summary) FINAL ===== ===== ===== ===== ===== ===== ===== ===== ===== ===== ===== ===== ===== === TOXAS SURE COMP DRUG SHERYL SIS,U R ===== ===== ===== ===== ===== ===== ===== ===== ===== ===== ===== ===== ===== === Test Resul t Flag Units Drug Prese nt and Decla red for Presc ripti on Verif icati on Oxaze radha 58 EXPEC DARLYN ng/mg creat Oxaze radha may be admin ister ed as a sched uled presc ripti on medic ation ; it is also an expec darlyn metab olite of other benzo diaze pine drugs , inclu ding diaze radha, chlor diaze poxid e, praze radha, clora zepat e, halaz epam, and temaz epam. Drug Prese nt not Decla red for Presc ripti on Verif icati on Alcoh ol, Ethyl 0.029 UNEXP ECTED g/dL Sourc es of ethyl alcoh ol inclu de alcoh olic bever ages or as a ferme ntati on produ ct of gluco se; gluco se is prese nt in this speci men. Inter pret resul t with cauti on, as the prese nce of ethyl alcoh ol is likel y due, at least in part, to ferme ntati on of gluco se. Diphe nhydr amine PRESE NT UNEXP ECTED ===== ===== ===== ===== ===== ===== ===== ===== ===== ===== ===== ===== ===== === Test Resul t Flag Units Ref Range Creat inine 60 mg/dL >=20 ===== ===== ===== ===== ===== ===== ===== ===== ===== ===== ===== ===== ===== === Decla red Medic ation s: The bubba ing and inter preta tion on this repor t are based on the follo wing decla red medic ation s. Unexp ected resul ts may arise from inacc uraci es in the decla red medic ation s. Not e: The testi ng scope of this panel inclu herbie these medic ation s: Diaze radha Not e: The testi ng scope of this panel does not inclu de follo wing repor darlyn medic ation s: Albut ruben Metfo rmin Multi vitam in (Pren atal) ===== ===== ===== ===== ===== ===== ===== ===== ===== ===== ===== ===== ===== === For clini ronel consu ltati on, pleas e call . ===== ===== ===== ===== ===== ===== ===== ===== ===== ===== ===== ===== ===== === Not Available [facility] [address] [place] [address], [place], [address], 07/31/2021 10:13:13 07/19/19 22 07/31/2021 COMPL IANCE DRUG SHERYL SIS, UR pdf . Not Available [facility] [address], [place], [address], 07/31/2021 10:13:13 10/16/19 22 10/15/2021 HbA1c (hemo globi n A1c), blood HbA1c 9.9 Not Available In-Office Order Internal Use Only DO Not Attach Compendium DO Not Attach Compendium, Do Not Delete/merge, [id number] 10/15/2021 10:44:56 09/10/19 24 09/10/2023 PPD (vanessa fied prote in deriv ative ), skin test Result Negati ve Not Available In-Office Order Internal Use Only DO Not Attach Compendium DO Not Attach Compendium, Do Not Delete/merge, [id number] 09/08/2023 11:31:15 01/23/20 24 01/23/2024 US, obste tric No observ ation record ed. [facility] [address], [place], [address], 01/23/2024 14:30:51 Result Notes None recorded. Problems Name Problem SNOMED Code Status Onset Date Resolution Date Notes Provider Name and Address Organization Details Recorded Time Irregular periods 67837187 Active Sunitha Concepcion [facility] Attn: Starla g,[address] [facility], [place], [address], [facility] 6 12:42:18 Amenorrhea 74109528 Active Sunitha Concepcion [facility] Attn: Accountin g,[address] [facility], [place], [address], [facility] 6 12:42:18 Problem Notes None recorded. Procedures Surgical History Date Name Laterality Status Provider Name and Address Organization Details Recorded Time 06/23/2020 Date of Last Pap Smear completed Yvette Stewart [place] [facility] [place] 08/31/2020 10:40:16 Imaging Results Imaging Date Name Status LastModified by Organiz ation Details LastModified Time 01/23/2024 [facility] [address], [place], [address], 01/23/2024 14:30:51 Procedure Notes None recorded. Medical Equipment None Reported. Allergies Allergen ID Allergen Name Allergen Category Reaction Reaction Severity Criticality Documentation Date Start Date Code Code System Note Provider Name and Address Organization Details Recorded Time 97725 Product containin g penicilli n and antibioti c (product) medicatio n hives Not available Not available 03/06/2016 53202 05 SNOMED Not Available Not Available Not Available Medications Name Sig Start Date Stop Date Status Note LastModified by Organization Details LastModified Time medroxyprog esterone 10 mg tablet Take 1 tablet every day by oral route for 10 days. 01/17 completed Not Available Not Available Not Available metformin 500 mg tablet TAKE 1 TABLET TWICE A DAY BY ORAL ROUTE FOR 90 DAYS. 09/07 completed Not Available Not Available Not Available doxycycline hyclate 100 mg capsule 07/18 completed Not Available Not Available Not Available clindamycin HCl 300 mg capsule 05/14 completed Not Available Not Available Not Available albuterol sulfate 2.5 mg/3 mL (0.083 %) solution for nebulizatio n INHALE 3 ML BY NEBULIZAT ION 4 TIMES A DAY NEEDED active Not Available Not Available No t Available triamcinolo ne acetonide 0.5 % topical cream APPLY A THIN LAYER TO THE AFFECTED AREA(S) BY TOPICAL ROUTE 2 TIMES PER DAY 08/31 completed Not Available Not Available Not Available azithromyci n 250 mg tablet 09/07 completed Not Available Not Available Not Available hydrocodone 5 mg-acetamin ophen 325 mg tablet TAKE 1 TABLET BY MOUTH EVERY 3 HOURS NEEDED FOR MODERATE PAIN 09/07 completed Not Available Not Available Not Available spironolact one 100 mg tablet 07/09 completed Not Available Not Available Not Available clindamycin HCl 150 mg capsule 12/10 completed Not Available Not Available Not Available acetaminoph en 300 mg-codeine 30 mg tablet 12/10 completed Not Available Not Available Not Available valacyclovi r 500 mg tablet TAKE 1 TABLET BY MOUTH DAILY 09/07 completed Not Available Not Available Not Available sulfamethox azole 800 mg-trimetho prim 160 mg tablet TAKE 1 TABLET BY MOUTH EVERY 12 HOURS FOR 10 DAYS active Not Available Not Available No t Available tramadol 50 mg tablet 07/18 completed Not Available Not Available Not Available ketorolac 10 mg tablet 07/09 completed Not Available Not Available Not Available Humalog U-100 Insulin 100 unit/mL subcutaneou s solution INJECT 22 UNITS AT BREAKFAST AND INJECT 19 UNITS AT DINNER 09/07 completed Not Available Not Available Not Available imiquimod 5 % topical cream packet apply to the affected external vaginal area 3 x per week at bedtime, a max of 16 weeks 08/31 completed Not Available Not Available Not Available metformin 1,000 mg tablet TAKE 1 TABLET BY MOUTH TWICE A DAY active Not Available Not Available No t Available Humulin N NPH U-100 Insulin (isophane susp) 100 unit/mL subcutaneou s INJECT 14 UNITS IN THE MORNING AND 5 UNITS AT BEDTIME 09/07 completed Not Available Not Available Not Available progesteron e micronized 200 mg capsule 10/15 completed Not Available Not Available Not Available mupirocin calcium 2 % topical cream APPLY A SMALL AMOUNT TO THE AFFECTED AREA BY TOPICAL ROUTE 3 TIMES PER DAY FOR 10 DAYS 2020 active Not Available Not Available Not Avai lable mupirocin 2 % topical ointment APPLY 3 TIMES A DAY FOR 10 DAYS 07/18 completed Not Available Not Available Not Available ergocalcife rol (vitamin D2) 1,250 mcg (50,000 unit) capsule TAKE 1 CAPSULE BY MOUTH ONCE WEEKLY active Not Available Not Available No t Available methylpredn isolone 4 mg tablets in a dose pack TAKE 1 DOSE PACK BY MOUTH DIRECTED 09/07 completed Not Available Not Available Not Available albuterol sulfate HFA 90 mcg/actuati on aerosol inhaler INHALE 2 PUFFS INTO THE LUNGS EVERY 4 HOURS NEEDED FOR 30 DAYS active Not Available Not Available No t Available norethindro ne (contracept [place]) 0.35 mg tablet TAKE 1 TABLET BY MOUTH EVERY DAY 09/07 completed Not Available Not Available Not Available fluticasone propionate 50 mcg/actuati on nasal spray,suspe nsion 09/12 completed Not Available Not Available Not Available metformin ER 500 mg tablet,exte nded release 24 hr TAKE 1 TABLET BY MOUTH TWICE A DAY active Not Available Not Available No t Available BD Luer-Christi Syringe 3 mL 22 x 1 1/2 USED TO DRAW UP METHOTREX ATE active Not Available Not Available No t Available diazepam 5 mg tablet TAKE 1 TABLET BY MOUTH TWICE A DAY 09/07 completed Not Available Not Available Not Available azithromyci n 500 mg tablet TAKE 1 TABLET BY MOUTH EVERY DAY FOR 3 DAYS 09/07 completed Not Available Not Available Not Available Sprintec (28) 0.25 mg-35 mcg tablet Take 1 tablet every day by oral route as directed. 05/14 completed Not Available Not Available Not Available methotrexat e sodium (PF) 25 mg/mL injection solution 09/07 completed Not Available Not Available Not Available nitrofurant oin monohydrate /macrocryst als 100 mg capsule Take 1 capsule every 12 hours by oral route. 11/07 completed Not Available Not Available Not Available BD Ultra-Fine Mini Pen Needle 31 gauge x 3/16 USE TO INJECT 4 TIMES DAILY active Not Available Not Available No t Available BD PrecisionGl brandan 25 gauge x 1 needle USE TO INJECT METHOTREX ATE active Not Available Not Available No t Available Januvia 100 mg tablet TAKE 1 TABLET BY MOUTH EVERY DAY 07/18 completed Not Available Not Available Not Available cholecalcif ruben (vitamin D3) 1,250 mcg (50,000 unit) capsule TAKE 1 CAPSULE BY MOUTH ONCE WEEKLY active Not Available Not Available No t Available Lantus Solostar U-100 Insulin 100 unit/mL (3 mL) subcutaneou s pen INJECT 14 UNITS UNDER THE SKIN NIGHTLY E11.65 09/07 completed Not Available Not Available Not Available Tradjenta 5 mg tablet Take 1 tablet every day by oral route for 90 days. 11/07 completed Not Available Not Available Not Available OneTouch Verio test strips 1 FOUR TIMES A DAY active Not Available Not Available No t Available Humulin N NPH U-100 Insulin KwikPen 100 unit/mL (3 mL) subcutaneou s ADMINISTE R 16 UNITS OF HUMULIN IN THE MORNING AND 10 UNITS OF HUMULIN AT BEDTIME active Not Available Not Available No t Available OneTouch Ultra Blue Test Strip USE TO TEST TWICE DAILY (2 STRIPS/DA Y) active Not Available Not Available No t Available BD Veo Insulin Syringe Ultra-Fine 0.3 mL 31 gauge x 15/ USE 1 SYRINGE TO INJECT INSULIN FOUR TIMES DAILY DIRECTED active Not Available Not Available No t Available BD Jyotsna 2nd Gen Pen Needle 32 gauge x 32 USE TO INJECT INSULIN UP TO DAILY E11.65 active Not Available Not Available No t Available OneTouch Ultra2 Meter TEST 1-2 TIMES DAILY active Not Available Not Available No t Available OneTouch Delica Plus Lancet 33 gauge 1 FOUR TIMES A DAY active Not Available Not Available No t Available FreeStyle Rob 2 Sensor kit 1 DEVICE CONTINUOU SLY E11.9 active Not Available Not Available No t Available Humalog Tempo Pen (U-100) Insulin 100 unit/mL subcutaneou s pen, sensor ADMINISTE R 10 UNITS OF HUMALOG AT BREAKFAST AND 7 UNITS OF HUMALOG AT DINNER active Not Available Not Available No t Available Vitals Date Recorded Body height Body mass index (BMI) Body weight Body temperature Oxygen saturation Oxygen saturation in Arterial blood by Pulse oximetry Heart rate Systolic blood pressure Diastolic blood pressure Provider Name and Address Organization Details Last Updated DateTime 2 154.94 cm 37.2 kg/m2 67419.7 g 97.7 [degF] 98 % 98 % 111 /min 124 mm[Hg] 90 mm[Hg] Vandana Fraga MA [facility] 2 15:28:43 Date Recorded Body height Body temperature Oxygen saturation Oxygen saturation in Arterial blood by Pulse oximetry Heart rate Body mass index (BMI) Body weight Systolic blood pressure Diastolic blood pressure Provider Name and Address Organization Details Last Updated DateTime 2 154.94 cm 97.6 [degF] 98 % 98 % 93 /min 37.5 kg/m2 02468.7 3 g 120 mm[Hg] 92 mm[Hg] Yvette doyle MA [facility] 2 10:27:03 Date Recorded Body height Body mass index (BMI) Body weight Oxygen saturation Oxygen saturation in Arterial blood by Pulse oximetry Heart rate Systolic blood pressure Diastolic blood pressure Provider Name and Address Organization Details Last Updated DateTime 4 154.94 cm 38 kg/m2 16892.0 7 g 100 % 100 % 79 /min 110 mm[Hg] 70 mm[Hg] Nidhi Pitts MA [facility] 4 11:16:28 Date Recorded Body height Body mass index (BMI) Body weight Heart rate Oxygen saturation Oxygen saturation in Arterial blood by Pulse oximetry Systolic blood pressure Diastolic blood pressure Provider Name and Address Organization Details Last Updated DateTime 4 154.94 cm 38 kg/m2 91053.0 7 g 125 /min 99 % 99 % 128 mm[Hg] 92 mm[Hg] Nidhi Pitts MA [facility] 4 15:26:44 Social History Question Answer Notes LastModified by Organizat ion Details LastModified Time Tobacco Smoking Status Former Smoker Vandana Fraga MA null, [place] [facility] 05/12/2020 11:49:39 What Is Your Level Of Alcohol Consumption? Occasional Information not available 05/07/2016 What Is Your Level Of Caffeine Consumption? Heavy Information not available 05/07/2016 How Much Tobacco Do You Chew? None Information not available 05/07/2016 In The 14 Days Before Symptom Onset, Have You Had Close Contact With A Laboratory-confi rmed COVID-19 While That Case Was Ill? No Information not available 09/08/2019 If Patient Spent Time In [facility] - Does The Patient Live In [facility]? No Information not available 09/08/2019 In The 14 Days Before Symptom Onset, Have You Had Close Contact With A Person Who Is Under Investigation For COVID-19 While That Person Was Ill? No Information not available 09/08/2019 In The 14 Days Before Symptom Onset, Did The Patient Spend Time In [facility]? No Information not available 09/08/2019 Have You Been To An Area Known To Be High Risk For COVID-19? No Information not available 09/08/2019 Are You Currently Employed? No [email or web address] Information not available 10/15/2021 What Type Of Diet Are You Following? REGULAR Information not available 05/07/2016 Which Illicit Or Recreational Drugs Have You Used? Denies Information not available 05/07/2016 Do You Or Have You Ever Used E-cigarettes Or Vape? Never Used Electronic Cigarettes Information not available 05/12/2020 Marital Status Single Informatio n not available 05/07/2016 What Was The Date Of Your Most Recent Tobacco Screening? 09/19/2023 Information not available 09/19/2023 What Is Your Relationship Status? Information not available 07/18/2021 Do You Have Smoke And Carbon Monoxide Detectors In Your Home? Yes Information not available 07/18/2021 At What Age Did You Start Smoking Tobacco? 19 Information not available 05/07/2016 Are You Passively Exposed To Smoke? No Information not available 07/18/2021 Do You Or Have You Ever Used Smokeless Tobacco? Never Used Smokeless Tobacco Information not available 05/12/2020 How Much Tobacco Do You Smoke? 1 PPW 1/2 Pkg A Week Information not available 05/07/2016 General Stress Level Medium Information not available 05/12/2020 Do You Feel Stressed (tense, Restless, Nervous, Or Anxious, Or Unable To Sleep At Night)? [id number] Information not available 08/31/2020 Do You Use Any Illicit Or Recreational Drugs? No Information not available 07/18/2021 Has Tobacco Cessation Counseling Been Provided? Yes [email or web address] Information not available 12/10/2018 On What Date Was Tobacco Cessation Counseling Provided? 09/19/2023 Information not available 09/19/2023 How Many Years Have You Smoked Tobacco? 1 Information not available 05/07/2016 Do You Or Have You Ever Used Any Other Forms Of Tobacco Or Nicotine? No Information not available 07/18/2021 Sex: Unknown Functional Status Question Answer Note LastModified by Organizat ion Details LastModified Time Are you able to care for yourself? Yes Information not available 08/31/2020 What is your exercise level? Occasional Information not available 05/07/2016 Mental Status None recorded. Family History Relationship Description Onset Age of this Age Resolved Age Notes LastModified by Organization Details LastModified Time Mother Diabetes mellitus [email or web address] Not available 2015 12:13:07 Mother Hypertensive disorder [email or web address] Not available 2015 12:13:07 Father Hypertensive disorder [email or web address] Not available 2015 12:13:07 Paternal Grandfather Hypertensive disorder [email or web address] Not available 2015 12:13:07 Paternal Grandfather Diabetes mellitus [email or web address] Not available 2015 12:13:07 Maternal Grandmother Hypertensive disorder [email or web address] Not available 2015 12:13:07 Medical History Condition Response Coronary Artery Disease N Other N High Blood Pressure N Atrial Fibrillation N Thyroid Problems N Kidney or Bladder Problems N GI Problems N Depression N COPD N Blood Clots N Skin Problems N Eating Disorder N Anemia N Heart Attack ([place]) N Anxiety Disorder N Diabetes N Muscle, Joint, or Bone Problems N Seizures/Epilepsy N Acid Reflux (GERD) N Cancer N Stroke N Asthma Y Allergies N ADHD N Substance Abuse N High Cholesterol N Hepatitis N Liver Disease N Schizophrenia N Headaches N Heart Failure N Osteoporosis N Gynecological History Statement/Question Response Flow Light Date of LMP 09/23/2021 STIs/STDs N HPV Vaccine Y Duration of Flow (days) 3 Age at Menarche 10 Current Control Method None Sexually Active? Y Menses Monthly N Date of Last Pap Smear 06/23/2020 Sexual Problems? N LMP Approximate Obstetrics History GPAL:G 0 P 0 0 0 0 Immunizations Vaccine Type Date Status Note Provider Nam e and Address Organization Details Recorded Time MMR 0 completed C[place]ITA [place], [place] - [facility] 09/03/2023 09:16:28 MMR 6 [place]ITA [place] [facility] 09/03/2023 09:16:28 meningococcal MPSV4 8 C[place] [facility] 09/03/2023 09:16:28 Tdap 8 C[place] [facility] 09/03/2023 09:16:28 OPV 0 [place] [facility] 09/03/2023 09:16:28 OPV 5 [place] [facility] 09/03/2023 09:16:28 OPV 5 [place] [facility] 09/03/2023 09:16:28 Influenza, split virus, trivalent, PF 9 completed Vandana Fr[place] [facility] 09/03/2023 09:16:28 HPV, quadrivalent 8 completed [place] Fr[place] [facility] 09/03/2023 09:16:28 HPV, quadrivalent 8 completed [place] [facility] 09/03/2023 09:16:28 HPV, quadrivalent 8 completed [place] [facility] 09/03/2023 09:16:28 Hep B, adolescent or pediatric 5 completed [place] [facility] 09/03/2023 09:16:28 Hep B, adolescent or pediatric 5 completed [place] [facility] 09/03/2023 09:16:28 Hep B, adolescent or pediatric 5 completed [place] [facility] 09/03/2023 09:16:28 DTaP 0 completed [place] [facility] 09/03/2023 09:16:28 DTaP-Hib 6 completed [place] Fr[place] [facility] 09/03/2023 09:16:28 DTaP-Hib 5 completed [place] [facility] 09/03/2023 09:16:28 DTaP-Hib 5 completed [place] [facility] 09/03/2023 09:16:28 MMR 2 completed [place] Fr[place] [facility] 07/18/2021 16:37:22 tetanus toxoid, unspecified formulation 5 completed Agueda gonzalez, [place] [facility] 05/07/2016 14:08:19 Past Encounters Encounter ID Performer Location Encounter Start Date Encounter Closed Date Diagnosis/Indication Diagnosis SNOMED-CT Code Diagnosis ICD10 Code Diagnosis Note [id number] Sunitha Concepcion [facility] Constantin Phillips ([facility] 122) 2 [facility] George [address] [place] [address] 03/06/2016 11:52:53 03/06/2016 12:48:24 Gynecologic examination 61693849 Z01.419 Amenorrhea 21875509 N91. 2 Irregular periods 295896 07 N92.6 [id number] [facility] [address] [facility] [address] [place] [address] 05/07/2016 13:53:21 05/07/2016 14:42:10 Adult health examination 059732043 Z00.00 healthy diet and exercise discussed with pt Obesity 154844830 E66.9 TSH-ok ( done by [employer]) [id number] Sunitha Concepcion [facility] Constantin Phillips ([place] [address]) [address] [facility] [place] [address] 05/20/2016 16:44:31 05/21/2016 08:40:16 Amenorrhea 63415355 N91.2 [id number] Sunitha Concepcion [facility] Constantin Phillips ([place] [address]) [address] [facility] [place] [address] 09/30/2016 16:00:17 10/01/2016 08:57:30 Primary infertility 768043214 N97.9 [id number] MD Constantin Figueroa ([place] [address]) [address] [facility] [place] [address] 10/03/2016 09:12:26 10/03/2016 14:45:34 Fertility care 084238226 Z31.84 If referral is not accepted will use letrozole or clomid for ovulation induction with the use of ovulation detection kit. [id number] ANTWON Cruz [address] [place] [address] 11/01/2016 11:13:13 11/01/2016 15:31:05 Hyperglycemia 24250735 R73.09 Morbid obesity 101670758 E66.01 [id number] ANTWON Cruz [address] [place] [address] 11/06/2016 10:10:01 11/06/2016 12:01:01 Type 2 diabetes mellitus 84843878 E11.9 [id number] Charisse Sanz [facility] [address] [place] [address] 07/09/2017 13:44:41 07/16/2017 14:46:44 Irregular periods 03749150 N92.6 [id number] Rebecca Gardner MA [facility] [address] [place] [address] 10/15/2017 17:50:18 10/15/2017 19:31:31 Type 2 diabetes mellitus 36107188 E11.9 [id number] Tom Delgado PA-C [facility] [address] [place] [address] 12/10/2018 10:49:07 12/10/2018 12:09:52 Type 2 diabetes mellitus without complication 495073160 E11.9 Type 2 beau betes mellitus 42487781 E11.9 [id number] Tom Delgado PA-C [facility] [address] [place] [address] 02/16/2019 11:00:50 02/16/2019 12:30:26 Diabetes mellitus 04078506 E11.9 Type 2 beau betes mellitus 86284292 E11.9 Generalize d anxiety disorder 56848894 F41.1 [id number] Tom Delgado PA-C [facility] [address] [place] [address] 05/14/2019 10:02:49 05/14/2019 12:37:22 Body mass index 30+ - obesity 107489674 Z68.37 Type 2 beau betes mellitus 53977760 E11.9 Generalize d anxiety disorder 10496089 F41.1 Acute bronchitis 7787759 2 J20.9 Atopic dermatitis 625098 01 L20.89 [id number] RAMIREZ Dickey Constantin 14 OB [address] [facility] [address] [place] [address] 05/19/2019 09:24:50 05/19/2019 15:26:49 Gynecologic examination 44639848 Z01.419 1. Counseled regarding prevention of STD's , condom use and prevention . 2. Counseled regarding contracept stanton options, risk factors and side effects. 3. Advised avoidance of tobacco, alcohol, and drugs . 4. Counseled regarding folic acid supplement ation, calcium needs and prevention of osteoporos is . 5. BSE reviewed and recommende d. 6. Follow up in one year or sooner if needed. Genital warts 372947323 A63.0 Pt given instructio ns of rx for wart removal. Pt verbalized understand ing. Will call office if she would like removal scheduled. Venereal d isease screening 978664935 Z11.3 1. STD testing done per pt request 2. Educated pt on STD prevention , Condom use 3. Pt verbalized understand ing 4. Will follow up pending lab results, as needed or at next annual Trying to conceive 510[address] 9001 Z31.9 Pt educated on using tracking apps for ovulation as well as using ovulation kits otc. Pt educated on best time during month to ttc also the use of vitamins. [id number] Charisse Sanz [facility] OB [address] [facility] [place] [address] 05/31/2019 15:16:46 06/01/2019 12:20:26 At increased risk of urinary tract infection 685453657 Z91.89 1. Will monitor as dip was negative. 2. Pt instructed to increase fluids, decrease soda, sugary beverages and caffeinate d beverages. 3. To call office if symptoms worsen or do not improve changes. [id number] Tom Delgado PA-C [facility] [address] [place] [address] 09/08/2019 16:13:04 09/08/2019 17:14:03 Abscess of skin of abdomen 1774887370 0620166 L02.211 Type 2 beau betes mellitus 74913651 E11.9 [id number] ANTWON Cruz [facility] [address] [place] [address] 09/13/2019 10:06:38 09/13/2019 11:52:36 Type 2 diabetes mellitus 49794736 E11.9 [id number] ANTWON Cruz [facility] [address] [place] [address] 11/08/2019 11:05:57 11/09/2019 09:01:38 Generalized anxiety disorder 90505744 F41.1 [id number] ANTWON Cruz [facility] [address] [place] [address] 01/18/2020 09:57:19 01/18/2020 12:55:20 Viral gastroenteritis 624365339 A08.39 Type 2 beau betes mellitus 41937273 E11.9 [id number] ANTWON Cruz [address] [place] [address] 05/12/2020 09:32:09 05/12/2020 12:22:27 Viral gastroenteritis 845569360 A08.39 [id number] ANTWON Cruz [facility] [address] [place] [address] 08/31/2020 10:31:17 09/01/2020 08:14:28 Uncontrolled type 2 diabetes mellitus 744868307 E11.65 Type 2 beau betes mellitus 01845891 E11.9 Moderate p ersistent asthma 981694957 J45.40 Cellulitis of abdominal wall 20766719 L03.960 [id number] Tom Delgado PA-C [facility] [address] [place] [address] 07/18/2021 15:09:15 07/18/2021 16:12:12 Type 2 diabetes mellitus 30370018 E11.9 Active or passive immunization 702999169 Z23 Body mass index 30+ - obesity 101889317 Z68.37 Generalize d anxiety disorder 05124473 F41.1 Long-term drug therapy 994275684 Z79.420 [id number] Tom Delgado PA-C [place] [address] [place] [address] 07/25/2021 09:03:38 07/26/2021 10:22:02 Type 2 diabetes mellitus 84763126 E11.9 [id number] Vandana Fraga MA [facility] [address] [place] [address] 10/15/2021 10:16:31 10/15/2021 11:29:55 Type 2 diabetes mellitus 04767546 E11.9 Mild inter mittent asthma 023864777 J45.20 [id number] Tom Delgado PA-C [facility] [address] [place] [address] 09/08/2023 11:07:19 09/12/2023 11:40:28 Adult health examination 708387842 Z00.00 Overweight 526897360 E66 .3 Type 2 beau betes mellitus 42390404 E11.9 [id number] Tom Delgado PA-C [facility] [address] [facility] [place] [address] 09/19/2023 15:09:49 09/23/2023 10:06:55 Dog bite of forearm 607429802 S51.851A Overweight 984932421 E66 .3 Health Concerns Section Related Observation LastModified by Organization Detai ls LastModified Time None Recorded Concern Status LastModified by Organization Details LastModified Time None Recorded Advance Directives Directive None Recorded Payers Encounter Date Sequence Insurance Name Policy Number Policy Dey Covered Member ID Dey Member ID Guarantor Name 07/18/2021 1 [place] [id number] Harsh Boggse [id number] [facility] 07/18/2021 2 [facility] (MEDICAID HMO) [id number] [facility] [id number] [facility] T[facility]07/25/2021 1 [place] [id number] Harsh Francis Twente [id number] [facility] 07/25/2021 2 [facility] (MEDICAID HMO) [id number] [facility] [id number] [facility] 10/15/2021 1 [place] [id number] Harsh Francis Twente [id number] Vera Twente 09/08/2023 1 [place] [id number] Harsh Francis Twente [id number] Vera Twente 09/19/2023 1 [place] [id number] Harsh Francis Twente [id number] [facility] Notes Date Note Type Note Provider Name and Address Organization Details Recorded Time 07/18/2021 text/html Patient presents for annual exam. States she has not been very compliant with her medications, has not taken her Metformin in months, and also has not taken her BGs stating she has lost her glucose monitor. Also reports she wants the MMR vaccine. Additionally, she reports she hasn't been herself lately, that she has had decreased mood, increased stress, and not wanting to do routine things. Feels this has been ongoing for the past 2 months after getting this past March. Feels increased stress from work.Also reports she is trying to get , which she has been trying for about 3 years. Tom Delgado PA-C Attn: Accounting,[address] [facility], [place], [address], [facility] 07/18/2021 15:57:06 07/25/2021 text/html go over labs...a1c remains high...has resumed meds since last visit...sugars are improving down to 160s from 300s....getting more sleep...eating better...overall feeling much better Tom Delgado PA-C Attn: Accounting,[address] [facility], [place], [address], [facility] 07/25/2021 12:56:17 10/15/2021 text/html Vera Pack is a 26 year old female who presents for mediation refill and A1c check. She is taking metformin 500 mg BID. She states that she was not taking the metformin regularly until June, and she would like to see what her A1c is now that she has been taking it consistently. She needs a refill of metformin and her albuterol inhaler. She usually uses her inhaler 1-2 times a week and she feels her asthma is under control. She does not wake up at night with SOB or have to use her inhaler at night. She denies n/v, fever, chills, bowel or bladder changes. Vandana Fraga MA [facility] [place] - [facility] 10/15/2021 11:50:12 09/08/2023 text/html adult phys for daycare work...blood sugar was out of whack due to ...now coming down..has endo Tom Delgado PA-C Attn: Accounting,[address] [facility], [place], [address], [facility] 09/08/2023 11:33:14 09/19/2023 text/html got bitten by her own dog at home after being startled...has had shots... Tom Delgado PA-C Attn: Accounting,[address] [place], [address], [facility] 09/19/2023 15:35:51 OBGyn Episode No OBEpisode recorded.
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
--- OUTSIDE RECORDS SUMMARY | 2024-08-05 17:19 | XMS_ITS | Patient Health Summary ---
Author Organization [facility] Address [address] [place] [address] Care Team Providers Care Boat Worker Name Role Phone Unavailable Primary Care Provider Unavailabl e Note from [facility],non-owned Affiliates and Associated Physician Practices is amultiple site organization consisting of ambulatory clinics and hospital sitesin [place], [place], [place] and [place]. This disclosure is being madepursuant to the Care Everywhere program and may not contain all information available regarding this patient. Last updated 18.[facility] Social History Tobacco Use Types Packs/Day Years Used Date Smoking Tobacco: Never Assessed Sex and Gender Information Value Date Recorded Sex Assigned at Not on file Gender Identity Not on file Sexual Orientation Not on file Procedures * HCG BETA BLOOD QUANTITATIVE(Performed 09/04/2021) * CBC W AUTO DIFFERENTIAL(Performed 08/14/2021) * COMPREHENSIVE METABOLIC PANEL(Performed 08/14/2021) Results * HCG BETA BLOOD QUANTITATIVE (09/04/2021 3:10 PM CDT) hCG Quantitative <1.20 mIU/mL 09/05/19 7:42 PM CDT [facility] Blood BLOOD SPECIMEN / Unknown Venipuncture / Unknown 09/04/2021 3:10 PM CDT 09/04/2021 6:51 PM CDT Narrative [facility] - 09/04/2021 7:42 PM CDT hCG [...] Provider Unknown LAB - CHEMISTRY MELI ARENAS [facility] [address] [place] [address] * (ABNORMAL) CBC WITH DIFFERENTIAL (08/14/2021 10:52 AM [facility]) [facility] WBC 9.7 4.4 - 10.7 x10E9/L 08/14/2021 11:[address] [facility] WBC Corrected 08/14/2021 11:[address] [facility] RBC 5.21(H) 3.80 - 5.20 x10E12/L 08/14/2021 11:[address] [facility] Hemoglobin 14.1 12.0 - 15.6 gm/dL 08/14/2021 11:[address] [facility] Hematocrit 43.3 35.9 - 45.5 % 08/14/2021 11:[address] [facility] MCV 83.1 80.7 - 98.3 fl 08/14/2021 11:[address] [facility] MCH 27.1 26.7 - 34.0 pg 08/14/2021 11:[address] [facility] MCHC 32.6 30.8 - 35.9 gm/dL 08/14/2021 11:[address] [facility] Platelet Count 273 153 - 416 x10E9/L 08/14/2021 11:[address] [facility] RDW-CV 12.4 12.1 - 14.9 % 08/14/2021 11:[address] [facility] MPV 10.6 9.4 - 12.9 fl 08/14/2021 11:[address] [facility] Neutrophils % 69.1 44.0 - 73.0 % 08/14/2021 11:[address] [facility] Lymphocytes % 23.0 20.0 - 43.0 % 08/14/2021 11:[address] [facility] Monocytes % 5.4 5.0 - 13.0 % 08/14/2021 11:[address] [facility] Eosinophils % 1.8 0.0 - 6.0 % 08/14/2021 11:[address] [facility] Basophils % 0.4 0.0 - 2.0 % 08/14/2021 11:[address] [facility] Immature Granulocytes 0.3 0 - 1 % 08/14/2021 11:[address] [facility] Neutrophil Absolute 6.72 2.01 - 7.14 x10E9/L 08/14/2021 11:[address] [facility] Lymphocytes Absolute 2.23 1.07 - 3.94 x10E9/L 08/14/2021 11:[address] [facility] Monocytes Absolute 0.52 0.26 - 1.07 x10E9/L 08/14/2021 11:[address] [facility] Eosinophils Absolute 0.17 0 - 0.47 x10E9/L 08/14/2021 11:[address] [facility] Basophils Absolute 0.04 0 - 0.08 x10E9/L 08/14/2021 11:[address] [facility] Immature Granulocytes Absolute 0.03 0.00 - 0.06 x10E9/L 08/14/2021 11:[address] [facility] nRBC Auto 0 /100 WBC 08/14/2021 11:[address] [facility] Blood BLOOD SPECIMEN / Unknown Venipuncture / Unknown 08/14/2021 10:52 AM [facility] 08/14/2021 10:52 AM [facility] Jaden Lyons MD LAB - HEMATOLOGY ORD ERABLES [facility] [address] [place], [place] [id number] * (ABNORMAL) COMPREHENSIVE METABOLIC PANEL (08/14/2021 10:52 AM [facility]) [facility] Signature Glucose 296(H) 70 - 105 mg/dL 08/14/2021 11:[address] [facility] Sodium 138 136 - 145 mmol/L 08/14/2021 11:[address] [facility] Potassium 4.4 3.5 - 5.1 mmol/L 08/14/2021 11:[address] [facility] Chloride 102 98 - 107 mmol/L 08/14/2021 11:[address] [facility] CO2 26 23 - 31 mmol/L 08/14/2021 11:[address] [facility] Calcium 9.2 8.4 - 10.4 mg/dL 08/14/2021 11:[address] [facility] Anion Gap 10 8 - 18 mmol/L 08/14/2021 11:[address] [facility] BUN 8 7 - 18.7 mg/dL 08/14/2021 11:[address] [facility] Creatinine 0.73 0.57 - 1.11 mg/dL 08/14/2021 11:[address] [facility] Alkaline Phosphatase 68 40 - 150 U/L 08/14/2021 11:[address] [facility] ALT 33 0 - 61 U/L 08/14/2021 11:[address] [facility] AST 15 5 - 34 U/L 08/14/2021 11:[address] [facility] Protein Total 6.6 6.4 - 8.3 gm/dL 08/14/2021 11:[address] [facility] Albumin 4.2 3.5 - 5.2 gm/dL 08/14/2021 11:[address] [facility] Bilirubin Total 0.3 0.2 - 1.2 mg/dL 08/14/2021 11:[address] [facility] eGFR by MDRD >60 >60 mL/min/1.7 3m2 08/14/2021 11:[address] [facility] eGFR by MDRD >60 >60 mL/min/1.7 3m2 08/14/2021 11:[address] 

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
--- OUTSIDE RECORDS SUMMARY | 2024-08-05 17:19 | XMS_ITS | Clinical Summary ---
Author Organization [facility] Address [address] [place] [phone] Phone Care Team Providers Care Baseball [employer] Manager Name Role Phone Unavailable Primary Care Provider Unavailabl e Encounters Date Type Department Care Team Description 07/26/2024 7:58 AM CLIENT MANAGER LARGE LAW - 07/26/2024 11:59 PM CLIENT MANAGER LARGE LAW Hospital Encounter [facility] [place] [address] [place] [phone] Jorge Shine MD Discharge Disposition: Home or Self Care 07/20/2024 External Device Data STL ABSTRACTION Provider, Abstract 07/14/2024 External Device Data STL ABSTRACTION Provider, Abstract 07/14/2024 External Device Data STL ABSTRACTION Provider, Abstract 06/29/2024 7:10 AM CLIENT MANAGER LARGE LAW - 06/29/2024 11:59 PM CLIENT MANAGER LARGE LAW Hospital Encounter [facility] [place] [address] [place] [phone] Alka Jones MD Discharge Disposition: Home or Self Care 05/31/2024 1:03 PM CLIENT MANAGER LARGE LAW - 05/31/2024 11:59 PM CLIENT MANAGER LARGE LAW Hospital Encounter [facility] [place] [address] [place] [phone] Alka Jones MD Discharge Disposition: Home or Self Care 05/31/2024 1:00 PM CLIENT MANAGER LARGE LAW - 05/31/2024 11:59 PM CLIENT MANAGER LARGE LAW Hospital Encounter [facility] [place] [address] [place] [phone] Alka Jones MD Discharge Disposition: Home or Self Care 05/06/2024 8:30 AM CLIENT MANAGER LARGE LAW - 05/06/2024 11:59 PM CLIENT MANAGER LARGE LAW Hospital Encounter [facility] Maternal [facility] [place] [address] [place] [phone] Laurie Crawford MD Discharge Disposition: Home or Self Care from Last 3 Months Social History Tobacco Use Types Packs/Day Years Used Date Smoking Tobacco: Never Assessed Comments Unknown Sex and Gender Information Value Date Recorded Sex Assigned at Not on file Legal Sex Female 11:03 AM CLIENT MANAGER LARGE LAW Gender Identity Not on file Sexual Orientation Not on file Plan of Treatment Upcoming Encounters Date Type Department Care Team (Late st Contact Info) Description 08/23/2024 9:00 AM CLIENT MANAGER LARGE LAW Appointment [facility] [place] [facility] [address] [place] [phone] Jorge Shine MD [address] [phone] Health Maintenance Due Date Last Done Comments CERVICAL CANCER SCREENING 09/07/2015 DTAP/TDAP/TD VACCINES (6 - T d or Tdap) 07/21/2017 07/21/2007, 09/20/1999, 01/13/1996, Additional history exists INFLUENZA VACCINE (#1) 2024 03/28/2009 HEPATITIS B VACCINES Completed 04/16/1995, 1994, 1994 HPV VACCINES Completed 04/04/2008, 01/21, 07/21/2007 Procedures Procedure Name Priority Date/Time Associated Diagnosis Comments US OB FOLLOW UP PER FETUS Routine 07/26/2024 8:27 AM CLIENT MANAGER LARGE LAW Type 2 diabetes mellitus with other specified complication, unspecified whether adjunct faculty for medical terminology insulin use (CMS/HCC) US OB FOLLOW UP PER FETUS Routine 06/29/2024 7:29 AM CLIENT MANAGER LARGE LAW Type 2 diabetes mellitus with other specified complication, unspecified whether adjunct faculty for medical terminology insulin use (CMS/HCC) ECHO 2D + COLOR FLOW VELOCITY Routine 05/31/2024 2:12 PM CLIENT MANAGER LARGE LAW Type 2 diabetes mellitus with other specified complication, unspecified whether senior care insulin use (CMS/HCC) US OB FOLLOW UP PER FETUS Routine 05/31/2024 2:10 PM CLIENT MANAGER LARGE LAW Type 2 diabetes mellitus with other specified complication, unspecified whether senior care insulin use (CMS/HCC) US OB DETAIL SINGLE GEST Routine 05/06/2024 9:49 AM CLIENT MANAGER LARGE LAW screening for malformation using ultrasonics Diabetes mellitus in childbirth from Last 3 Months Results * US OB FOLLOW UP PER FETUS (07/26/2024 8:27 AM CLIENT MANAGER LARGE LAW) Only the most recent of3 resultswithin the time period is included. Anatomical Region Laterality Modality Pelvis Ultrasound 07/26/2024 8:02 AM CLIENT MANAGER LARGE LAW Narrative 07/26/2024 8:29 AM CLIENT MANAGER LARGE LAW STL FOLLOW UP ----- Pat. Name: VERA SANTILLAN Study Date: 07/26/2024 8:02am Pat. NO: [id number] Referring MD: LAURIE CRAWFORD MD Site: [facility] Component Inspector: Kym Early RDMS : 1995 Age: 28 ----- INDICATION ----- Screening Follow-Up Diabetes type 2 Asthma Complicating Maternal Obesity (BMI<40) Complicating Maternal Care for Low Transverse Scar from Previous Delivery (Previous ) History of Ectopic , Currently CODING ----- Diagnoses Z3A.33: Weeks of gestation O09.13: Supervision of with history of ectopic O34.211: Maternal care for low transverse scar from previous delivery O99.213: Obesity complicating O99.513: Diseases of the respiratory system complicating O24.113: Pre-existing type 2 diabetes mellitus, in Z36.2: Encounter for other screening follow-up Procedures 65740: Ultrasound, uterus, real time with image documentation, follow up, transabdominal approach per fetus HISTORY ----- OB History 4. Para 1 T1A2L1 MATERNAL ASSESSMENT ----- Physical Exam Initial weight 89 kg, 196 lb. Initial BMI 37.03 kg/m METHOD ----- Transabdominal ultrasound examination ----- Garcia . Number of fetuses: 1 DATING ----- GA by prior assessment 33 w + 0 d TIMMY by prior assessment: 09/13/2024 Ultrasound examination on: 07/26/2024 GA by U/S based upon: AC, BPD, EFW, Femur, HC GA by U/S 33 w + 3 d TIMMY by U/S: 09/10/2024 Method of dating: Restore dating from previous exam Assigned: based on stated TIMMY, selected on 05/06/2024 Assigned GA 33 w + 0 d Assigned TIMMY: 09/13/2024 BIOMETRY ----- BPD 79.3 mm 31w 6d 14% Hadlock OFD 110.5 mm 36w 5d >99% Nga HC 303.9 mm 33w 6d 33% Hadlock AC 315.2 mm 35w 3d 97% Hadlock Femur 62.1 mm 32w 1d 19% Hadlock HC / AC 0.96 8% Nicolaides Weight Calculation: EFW 2,333 g 33w 6d 72% Hadlock EFW (lb,oz) 5 lb 2 oz EFW by Hadlock ([id number]) Head / Face / Neck Biometry: Tin Whiz Machine Operator 2.6 mm Extremities / Bony Struc Biometry: FL / BPD 0.78 FL / HC 0.20 FL / AC 0.20 GENERAL EVALUATION ----- Cardiac activity present. FHR 146 bpm. movements: present. Presentation: cephalic Placenta: Placental site: posterior, left Umbilical cord: Cord vessels: 3 vessel cord. Amniotic fluid: Amount of AF: normal amount. MVP 3.3 cm. BISHNU 11.8 cm. Q1 3.2 cm, Q2 1.9 cm, Q3 3.3 cm, Q4 3.3 cm ANATOMY ----- The following structures appear normal: Head / Neck Cranium. Lateral ventricles. Midline falx. Cavum septi pellucidi. Heart / Thorax Diaphragm. Abdomen Stomach. Kidneys. Bladder. GROWTH OVERVIEW ----- Exam date GA BPD (mm) HC (mm) AC (mm) FL (mm) HL (mm) EFW (g) 05/06/2024 21w 3d 47.1 9% 185.9 20% 168.9 58% 38.0 66% 34.3 57% 454 64% 05/31/2024 25w 0d 60.3 27% 226.2 18% 218.2 80% 45.7 41% 832 67% 06/29/2024 29w 1d 70.1 12% 269.9 25% 258.9 71% 57.6 65% 1,470 64% 07/26/2024 33w 0d 79.3 14% 303.9 33% 315.2 97% 62.1 19% 2,333 72% COMMENT ----- Patient's name and date of were verified by the rotary planer set up operator prior to the exam IMPRESSION ----- 1. Single living fetus with a gestational age of 33w 0d, based on the reported clinical dates. 2. Current growth parameters are consistent with the stated EDC. The size is appropriate for gestational age at 72% percentile (2333 g). 3. Unremarkable limited anatomy noted. A detailed anatomy cannot be performed secondary to advanced gestational age. However, there are no gross structural abnormalities noted. 4. The amniotic fluid is normal for gestational age (MVP:3.3 cm , BISHNU:11.8 cm ). 5. posterior, left placenta. No previa/not low-lying. 6. cephalic presentation. Recommendations: 1. Follow up growth sonogram in 4 weeks in your office or ours at your discretion 2. testing as scheduled with the primary OB Thank you for allowing us to participate in the care of this patient. Procedure Note Mor Mccullough MD - 07/26/2024 STL FOLLOW UP ----- Pat. Name:Vazquez SANTILLAN Date:07/26/2024 8:02am Pat. NO: [id number] :ALURIE CRAWFORD MD [facility]Kym Early RDMS :1995Age:28 ----- INDICATION ----- Screening Follow-Up Diabetes type 2 Asthma Complicating Maternal Obesity (BMI<40) Complicating Maternal Care for Low Transverse Scar from Previous Delivery (Previous ) History of Ectopic , Currently CODING ----- Diagnoses Z3A.33: Weeks of gestation O09.13: Supervision of with history ofectopic O34.211: Maternal care for low transverse scarfrom previous delivery O99.213: Obesity complicating O99.513: Diseases of the respiratory systemcomplicating O24.113: Pre-existing type 2 diabetes mellitus, inpregnancy Z36.2: Encounter for other screeningfollow-up Procedures 19071: Ultrasound, uterus, real time withimage documentation, follow up, transabdominal approach per fetus HISTORY ----- OB History 4. Para 1 T1A2L1 MATERNAL ASSESSMENT ----- Physical Exam Initial weight 89 kg, 196 lb. Initial BMI 37.03kg/m METHOD ----- Transabdominal ultrasound examination ----- Garcia . Number of fetuses: 1 DATING ----- GA by prior [id number] w + 0 d TIMMY by prior assessment:09/13/2024 Ultrasound examination on:07/26/2024 GA by U/S based upon:AC, BPD, EFW, Femur, HC GA by U/S33 w + 3 d TIMMY by U/S:09/10/2024 Method of dating:Restore dating from previous exam Assigned:based on stated TIMMY, selected on 05/06/2024 Assigned GA33 w + 0 d Assigned TIMMY:09/13/2024 BIOMETRY ----- BPD 79.3 mm 31w 6d 14%Hadlock OFD 110.5 mm 36w 5d >99%Nga HC 303.9 mm 33w 6d 33%Hadlock AC 315.2 mm 35w 3d 97%Hadlock Femur 62.1 mm 32w 1d 19%Hadlock HC / AC 0.96 8%Nicolaides Weight Calculation: EFW 2,333 g 33w 6d72% Hadlock EFW (lb,oz) 5 lb 2 oz EFW by Hadlock ([id number]) Head / Face / Neck Biometry: Tin Whiz Machine Operator 2.6mm Extremities / Bony Struc Biometry: FL / BPD 0.78 FL / HC 0.20 FL / AC 0.20 GENERAL EVALUATION ----- Cardiac activity present. FHR 146 bpm. movements: present.Presentation: cephalic Placenta: Placental site: posterior, left Umbilical cord: Cord vessels: 3 vessel cord. Amniotic fluid: Amount of AF: normal amount. MVP 3.3 cm. BISHNU 11.8 cm. Q13.2 cm, Q2 1.9 cm, Q3 3.3 cm, Q4 3.3 cm ANATOMY ----- The following structures appear normal: Head / Neck Cranium. Lateral ventricles. Midline falx. Cavumsepti pellucidi. Heart / Thorax Diaphragm. Abdomen Stomach. Kidneys. Bladder. GROWTH OVERVIEW ----- Exam date GA BPD (mm) HC (mm) AC (mm) FL(mm) HL (mm) EFW (g) 05/06/2024 21w 3d 47.1 9% 185.9 20% 168.9 58%38.0 66% 34.3 57% 454 64% 05/31/2024 25w 0d 60.3 27% 226.2 18% 218.2 80%45.7 41% 832 67% 06/29/2024 29w 1d 70.1 12% 269.9 25% 258.9 71%57.6 65% 1,470 64% 07/26/2024 33w 0d 79.3 14% 303.9 33% 315.2 97%62.1 19% 2,333 72% COMMENT ----- Patient's name and date of were verified by the rotary planer set up operator prior tothe exam IMPRESSION ----- 1. Single living fetus with a gestational age of 33w 0d, based on thereported clinical dates. 2. Current growth parameters are consistent with the stated EDC. The fetalsize is appropriate for gestational age at 72% percentile (2333 g). 3. Unremarkable limited anatomy noted. A detailed anatomycannot be performed secondary to advanced gestational age. However, there are no gross structural abnormalities noted. 4. The amniotic fluid is normal for gestational age (MVP:3.3 cm , BISHNU:11.8cm ). 5. posterior, left placenta. No previa/not low-lying. 6. cephalic presentation. Recommendations: 1. Follow up growth sonogram in 4 weeks in your office or ours at yourdiscretion 2. testing as scheduled with the primary OB Thank you for allowing us to participate in the care of this patient. us Jorge Shine MD US ORDERABLES Final Re sult * ECHO 2D + COLOR FLOW VELOCITY (05/31/2024 2:12 PM CLIENT MANAGER LARGE LAW) Narrative 05/31/2024 2:12 PM CLIENT MANAGER LARGE LAW Order information only. Exam was auto-finalized. us Alka Jones MD US ORDERABLES Final Resul t * US OB DETAIL SINGLE GEST (05/06/2024 9:49 AM CLIENT MANAGER LARGE LAW) Anatomical Region Laterality Modality Pelvis Ultrasound 05/06/2024 9:05 AM CLIENT MANAGER LARGE LAW Narrative 05/06/2024 9:47 AM CLIENT MANAGER LARGE LAW STL COMP ----- Pat. Name: VERA SANTILLAN Study Date: 05/06/2024 9:05am Pat. NO: [id number] Referring MD: LAURIE CRAWFORD MD Site: [facility] Component Inspector: Camila Bernal RDMS : 1995 Age: 28 ----- INDICATION ----- Anatomy Survey Diabetes type 2 Asthma Complicating Maternal Obesity (BMI<40) Complicating Maternal Care for Low Transverse Scar from x 1 Previous Delivery (Previous ) History of Ectopic , Currently x 2 (2021 and early 2023) CODING ----- Diagnoses Z3A.21: Weeks of gestation O09.12: Supervision of with history of ectopic O34.211: Maternal care for low transverse scar from previous delivery O99.212: Obesity complicating O99.512: Diseases of the respiratory system complicating O24.112: Pre-existing type 2 diabetes mellitus, in Z36.3: Encounter for screening for malformations Procedures 81353: Ultrasound, uterus, real time with image documentation, and maternal evaluation plus detailed anatomic examination, transabdominal approach HISTORY ----- OB History 4. Para 1 T1A2L1 MATERNAL ASSESSMENT ----- Physical Exam Weight 88 kg. Initial weight 89 kg, 196 lb. BMI 36.66 kg/m . Initial BMI 37.03 kg/m . Weight gain -1 kg, -2 lb METHOD ----- Transabdominal ultrasound examination ----- Garcia . Number of fetuses: 1 DATING ----- Method of dating: based on stated TIMMY GA by prior assessment 21 w + 3 d TIMMY by prior assessment: 09/13/2024 Ultrasound examination on: 05/06/2024 GA by U/S based upon: AC, BPD, EFW, Femur, HC GA by U/S 21 w + 3 d TIMMY by U/S: 09/13/2024 Assigned: based on stated TIMMY, selected on 05/06/2024 Assigned GA 21 w + 3 d Assigned TIMMY: 09/13/2024 BIOMETRY ----- BPD 47.1 mm 20w 2d 9% Hadlock OFD 67.7 mm 22w 5d 88% Nga HC 185.9 mm 20w 6d 20% Hadlock Cerebellum tr 22.6 mm 21w 6d 56% Hanna Nuchal fold 4.3 mm AC 168.9 mm 21w 6d 58% Hadlock Femur 38.0 mm 22w 1d 66% Hadlock Humerus 34.3 mm 21w 5d 57% Nga HC / AC 1.10 16% Nicolaides Weight Calculation: EFW 454 g 21w 5d 64% Hadlock EFW (lb,oz) 1 lb 0 oz EFW by Hadlock ([id number]) Head / Face / Neck Biometry: Tin Whiz Machine Operator 6.3 mm CM 4.6 mm 26% Nicolaides Outer IOD 34.3 mm 21w 6d 34% Nga Extremities / Bony Struc Biometry: FL / BPD 0.81 FL / HC 0.20 FL / AC 0.23 GENERAL EVALUATION ----- Cardiac activity present. FHR 150 bpm. movements: present. Presentation: transverse Placenta: Placental site: posterior. Placental drkf-zh-hdsaodnr os distance 20 mm Umbilical cord: Cord vessels: 3 vessel cord. Insertion site: placental insertion: normal Amniotic fluid: Amount of AF: normal amount. MVP 4.4 cm ANATOMY ----- The following structures appear normal: Head / Neck Cranium. Lateral ventricles. Choroid plexus. Midline falx. Cavum septi pellucidi. Cerebellum. Cisterna magna. Thalami. Nuchal fold. Face Lips. Profile. Nose. Palate. Orbits. Heart / Thorax 4-chamber view. RVOT view. LVOT view. 3-vessel view. 4-nrqkvk-obodzns view. Situs. Aortic arch view. Ductal arch view. Superior vena cava. Inferior vena cava. High short axis view. Cardiac rhythm. Diaphragm. Abdomen Abdominal wall. Stomach. Kidneys. Bladder. Spine Cervical spine. Thoracic spine. Lumbar spine. Sacral spine. Extremities / Arms. Right hand. Left hand. Legs. Right foot. Left foot. Skeleton MATERNAL STRUCTURES ----- Cervix Visualized Approach - Transabdominal: Cervical length 55.3 mm Right Ovary Normal Size 35 mm x 26 mm x 24 mm. Vol 11.0 cm Left Ovary Normal Size 42 mm x 30 mm x 19 mm. Vol 12.0 cm GROWTH OVERVIEW ----- Exam date GA BPD (mm) HC (mm) AC (mm) FL (mm) HL (mm) EFW (g) 05/06/2024 21w 3d 47.1 9% 185.9 20% 168.9 58% 38.0 66% 34.3 57% 454 64% COMMENT ----- Patient's name and date of were verified by the rotary planer set up operator before the exam IMPRESSION ----- 1. Single living fetus with a gestational age of 21w 3d based on the reported clinical dates. 2. Current growth parameters are consistent with the stated EDC. The fetus is appropriate for gestational age in size at the 64% (454 g). 3. Detailed anatomic survey is unremarkable. No gross structural abnormalities noted. No sonographic markers for aneuploidy noted. 4. Amniotic fluid volume is normal for gestational age. 5. The cervical length is within normal range for gestational age. 6. The right and left ovary appear normal in size and shape. 7. Placenta is posterior . No previa/not low-lying. The placenta cord insertion is normal. Recommendations: -Screening echocardiogram at 24 weeks. - Serial growth at 4 week intervals. - testing at 32 weeks. Thank you for allowing us to participate in the care of this patient. Procedure Note Edna Castañeda MD - 05/06/2024 STL COMP ----- Pat. Name:Vazquez SANTILLAN Date:05/06/2024 9:05am Pat. NO: [id number] MD:LAURIE CRAWFORD [facility]Camila Bernal RDMS :1995Age:28 ----- INDICATION ----- Anatomy Survey Diabetes type 2 Asthma Complicating Maternal Obesity (BMI<40) Complicating Maternal Care for Low Transverse Scar from x 1 Previous Delivery (Previous ) History of Ectopic , Currently x 2 (2021 and ) CODING ----- Diagnoses Z3A.21: Weeks of gestation O09.12: Supervision of with history ofectopic O34.211: Maternal care for low transverse scarfrom previous delivery O99.212: Obesity complicating O99.512: Diseases of the respiratory systemcomplicating O24.112: Pre-existing type 2 diabetes mellitus, inpregnancy Z36.3: Encounter for screening formalformations Procedures 14807: Ultrasound, uterus, real time withimage documentation, and maternal evaluation plus detailed anatomic examination,transabdominal approach HISTORY ----- OB History 4. Para 1 T1A2L1 MATERNAL ASSESSMENT ----- Physical Exam Weight 88 kg. Initial weight 89 kg, 196 lb. BMI36.66 kg/m . Initial BMI 37.03 kg/m . Weight gain -1 kg, -2 lb METHOD ----- Transabdominal ultrasound examination ----- Garcia . Number of fetuses: 1 DATING ----- Method of dating:based on stated TIMMY GA by prior [id number] w + 3 d TIMMY by prior assessment:09/13/2024 Ultrasound examination on:05/06/2024 GA by U/S based upon:AC, BPD, EFW, Femur, HC GA by U/S21 w + 3 d TIMMY by U/S:09/13/2024 Assigned:based on stated TIMMY, selected on 05/06/2024 Assigned GA21 w + 3 d Assigned TIMMY:09/13/2024 BIOMETRY ----- BPD 47.1 mm 20w 2d9% Hadlock OFD 67.7 mm 22w 5d88% Nga HC 185.9 mm 20w 6d20% Hadlock Cerebellum tr 22.6 mm 21w 6d56% Hanna Nuchal fold 4.3 mm AC 168.9 mm 21w 6d58% Hadlock Femur 38.0 mm 22w 1d66% Hadlock Humerus 34.3 mm 21w 5d57% Nga HC / AC 1.10 16%Nicolaides Weight Calculation: EFW 454 g 21w 5d 64%Hadlock EFW (lb,oz) 1 lb 0 oz EFW by Hadlock ([id number]) Head / Face / Neck Biometry: Tin Whiz Machine Operator 6.3 mm CM 4.6 mm 26%Nicolaides Outer IOD 34.3 mm 21w 6d 34%Nga Extremities / Bony Struc Biometry: FL / BPD 0.81 FL / HC 0.20 FL / AC 0.23 GENERAL EVALUATION ----- Cardiac activity present. FHR 150 bpm. movements: present.Presentation: transverse Placenta: Placental site: posterior. Placental czhk-kl-jyyelida osdistance 20 mm Umbilical cord: Cord vessels: 3 vessel cord. Insertion site: placentalinsertion: normal Amniotic fluid: Amount of AF: normal amount. MVP 4.4 cm ANATOMY ----- The following structures appear normal: Head / Neck Cranium. Lateral ventricles. Choroid plexus.Midline falx. Cavum septi pellucidi. Cerebellum. Cisterna magna. Thalami. Nuchal fold. Face Lips. Profile. Nose. Palate. Orbits. Heart / Thorax 4-chamber view. RVOT view. LVOT view. 3-vesselview. 7-lumqvu-lvvaqtu view. Situs. Aortic arch view. Ductal arch view. Superior vena cava. Inferiorvena cava. High short axis view. Cardiac rhythm. Diaphragm. Abdomen Abdominal wall. Stomach. Kidneys. Bladder. Spine Cervical spine. Thoracic spine. Lumbar spine.Sacral spine. Extremities / Arms. Right hand. Left hand. Legs. Right foot.Left foot. Skeleton MATERNAL STRUCTURES ----- Cervix Visualized Approach - Transabdominal: Cervical length 55.3mm Right Ovary Normal Size 35 mm x 26 mm x 24 mm. Vol 11.0 cm Left Ovary Normal Size 42 mm x 30 mm x 19 mm. Vol 12.0 cm GROWTH OVERVIEW ----- Exam date GA BPD (mm) HC (mm) AC (mm) FL(mm) HL (mm) EFW (g) 05/06/2024 21w 3d 47.1 9% 185.9 20% 168.9 58%38.0 66% 34.3 57% 454 64% COMMENT ----- Patient's name and date of were verified by the rotary planer set up operator beforethe exam IMPRESSION ----- 1. Single living fetus with a gestational age of 21w 3d based on thereported clinical dates. 2. Current growth parameters are consistent with the stated EDC. The fetusis appropriate for gestational age in size at the 64% (454 g). 3. Detailed anatomic survey is unremarkable. No gross structuralabnormalities noted. No sonographic markers for aneuploidy noted. 4. Amniotic fluid volume is normal for gestational age. 5. The cervical length is within normal range for gestational age. 6. The right and left ovary appear normal in size and shape. 7. Placenta is posterior . No previa/not low-lying. The placenta cordinsertion is normal. Recommendations: -Screening echocardiogram at 24 weeks. - Serial growth at 4 week intervals. - testing at 32 weeks. Thank you for allowing us to participate in the care of this patient. us Laurie Crawford MD ORDERABLES Final Res ult from Last 3 Months Insurance ADMINISTRATIVE CONCEPTS [employer]
[2024-08-05 17:30] VITALS: BP 122/74; PULSE 83
[2024-08-05 17:45] VITALS: BP 111/68; PULSE 79
[2024-08-05 18:01] VITALS: BP 111/68; PULSE 79
[2024-08-05 18:01] LABS: OBXCEM ROM Plus Negative (Negative)
== END 2024-08-05 18:07 | disposition home or self-care (01) ==
LOC: ANHOBOP 17:17 → ANHLDR 17:19
PROVIDERS: PCP Physician Assistant; Visit Provider Obstetrics & Gynecology Gynecology
DX: O42.90 Premature rupture of membranes, unspecified as to length of time between rupture and onset of labor, unspecified weeks of gestation (principal); Z3A.00 Weeks of gestation of pregnancy not specified
CPT/HCPCS: 59025; 84112; 99199

== ENCOUNTER 2024-08-13 10:31 | Outpatient (RCR) | payer OTHER, SELFPAY ==
[2024-07-29 10:25] VITALS: BP 121/68; PULSE 108
--- NOTE | ~2024-08-13 | US_ITS ---
EXAMINATION: US OB BPP wo non-stress DATE: 08/13/2024 11:59 INDICATION: Decreased movement TECHNIQUE: Real-time pelvic ultrasound was performed. The interpreting radiologist was not present fo r the study. COMPARISON: None. FINDINGS: There is a single living fetus in vertex presentation. The placenta is fundal. cardiac activit y and movement are demonstrated. heart rate is 154 beats per minute (bpm). Biophysical profile performed by the technologist: breathing (30 sec sustained breathing in 30 minutes): 2 out of 2 movement (3 gross body movements in 30 minutes): 2 out of 2 tone (one episode of sqvpkqr-cpcghgzdx-newhwyd limb movement): 2 out of 2 Amniotic fluid pocket (2 cm): 2 out of 2 Total score: 8 out of 8 IMPRESSION: 1. Single living intrauterine in vertex presentation with heart rate of 154 bpm. 2. Normal placenta. 3. Biophysical profile 8 out of 8. Reviewed, dictated and finalized at location L. M CONDITIONER OPERATOR
[2024-08-13 11:34] VITALS: BP 117/78; PULSE 81
== END 2024-10-13 17:22 | disposition home or self-care (01) ==
LOC: ANHOBOP 10:31
PROVIDERS: PCP Physician Assistant; Visit Provider Obstetrics & Gynecology Gynecology
DX: O24.319 Unspecified pre-existing diabetes mellitus in pregnancy, unspecified trimester (principal)
CPT/HCPCS: 59025; 76819

== ENCOUNTER 2024-09-04 10:38 | Outpatient (CLI) | payer OTHER, SELFPAY ==
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
--- OUTSIDE RECORDS SUMMARY | 2024-09-04 10:45 | XMS_ITS | Data Portability ---
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 Plan of Treatment Reminders Order Date Submit Date Provider Last Modified By Organization Details Last Modified Time Details Appointments None recorded. Lab PPD (purified protein derivative) , skin test 2023 024 [facility] In-Office Order, Internal Use Only DO Not Attach Compendium DO Not Attach Compendium, Do Not Delete/merge, [id number] 4 11:52:40 HbA1c (hemoglobin A1c), blood 2021 022 [facility] In-Office Order, Internal Use Only DO Not Attach Compendium DO Not Attach Compendium, Do Not Delete/merge, [id number] 10:58:31 lipid panel, serum 2021 022 [facility], [address] [facility] [address], [address], 19:07:50 HbA1c (hemoglobin A1c), blood 2021 022 [facility] In-Office Order, Internal Use Only DO Not Attach Compendium DO Not Attach Compendium, Do Not Delete/merge, [id number] 2 17:23:31 CMP, serum or plasma 2021 022 [facility], [address] [facility] [address], [place], [address], 2 19:07:49 CBC 2021 022 [facility] [address] [facility] [address], [place], [address], 2 19:07:49 drug screen, urine 2021 [facility], [address] [facility] [address], [place], [address], 2 10:13:13 Referral None recorded. Procedures None recorded. Surgeries None recorded. Imaging None recorded. Medication Orders sulfamethox azole 800 mg-trimetho prim [address] [id number] [address] [place], [address], 4 15:34:56 metformin 500 mg tablet 2021 [facility]22 [id number] [address] [place], [address], 4 11:12:45 ProAir HFA 90 mcg/actuati on aerosol inhaler [address] [id number] [address] [place], [address], 2 10:46:38 diazepam 5 mg tablet 2021 022 [id number] [address] [place], [address], 4 11:12:23 metformin 500 mg tablet 2021 022 [id number] [address] [place], [address], 4 11:12:45 albuterol sulfate 2.5 mg/3 mL (0.083 %) solution for nebulizatio n [address] [id number] [address] [place], [address], 15:53:02 Patient TargetsNo targets recorded. Patient Instructions Encounter Date Encounter Id Patient Instructions Last Modified By Organization Details Last Modified Time 07/18/2021 [id number] anxiety disorder : care instructions jnanney Not available 07/18/2021 15:52:58 learning about type 2 diabetes jnanney Not available 07/18/2021 15:40:32 type 2 diabetes: care instructions jnanney Not available 07/18/2021 15:40:32 body mass index: care instructions jnanney Not available 07/18/2021 15:52:59 learning about healthy weight jnanney Not available 07/18/2021 15:52:58 07/25/2021 [id number] learning about type 2 diabetes jnanney Not available 07/25/2021 12:55:44 type 2 diabetes: care instructions jnanney Not available 07/25/2021 12:55:44 will redraw labs in 3 months jnanney Not available 07/25/2021 12:54:16 10/15/2021 [id number] learning about type 2 diabetes jnanney Not available 10/15/2021 10:45:19 type 2 diabetes: care instructions jnanney Not available 10/15/2021 10:45:19 09/08/2023 [id number] A healthy lifestyle: care instructions jnanney Not available 09/08/2023 11:32:56 learning about type 2 diabetes jnanney Not available 09/08/2023 11:32:56 type 2 diabetes: care instructions jnanney Not available 09/08/2023 11:32:56 09/19/2023 [id number] A healthy lifestyle: care instructions jnanney Not available 09/19/2023 15:34:54 Reason for Referral None Reported. Results Created Date Observation Date Name Description Value Unit Range Abnormal Flag Note LastModifiedBy Organization Detail LastModifiedTime 07/18/19 22 07/18/2021 HbA1c (hemo globi n A1c), blood HbA1c 9.3 Not Available In-Office Order Internal Use Only DO Not Attach Compendium DO Not Attach Compendium, Do Not Delete/merge, [id number] 07/18/2021 15:35:58 07/19/19 22 07/21/2021 COMP. METAB OLIC PANEL (14) glucose 301 mg/dL 65-99 above high normal Not Available [facility] ([facility]) [address] [place], [address], 07/21/2021 19:07:48 07/19/19 22 07/21/2021 COMP. METAB OLIC PANEL (14) BUN 10 mg/dL 6-20 Not Available [facility] ([facility]) [address] [place], [address], 07/21/2021 19:07:48 07/19/19 22 07/21/2021 COMP. METAB OLIC PANEL (14) creatinine 0.67 mg/dL 0.57-1 .00 Not Available [facility] ([facility]) [address] [place], [address], 07/21/2021 19:07:48 07/19/19 22 07/21/2021 COMP. METAB OLIC PANEL (14) eGFR if nonafricn AM 122 mL/mi n/1.7 3 >59 Not Available [facility] ([facility]) [address] [place], [address], 07/21/2021 19:07:48 07/19/19 22 07/21/2021 COMP. METAB [...] a race varia ble. Not Available [facility] ([facility]) [address] [place], [address], 07/21/2021 19:07:48 07/19/19 22 07/21/2021 COMP. METAB OLIC PANEL (14) BUN/creatini ne ratio 15 9-23 Not Available [facility] ([facility]) [address] [place], [address], 07/21/2021 19:07:48 07/19/19 22 07/21/2021 COMP. METAB OLIC PANEL (14) sodium 143 mmol/ L 134-14 4 Not Available [facility] ([facility]) [address] [facility] [place], [address], 07/21/2021 19:07:48 07/19/19 22 07/21/2021 COMP. METAB OLIC PANEL (14) potassium 4.7 mmol/ L 3.5-5. 2 Not Available [facility] ([facility]) [address] [facility] [place], [address], 07/21/2021 19:07:48 07/19/19 22 07/21/2021 COMP. METAB OLIC PANEL (14) chloride 101 mmol/ L 96-106 Not Available [facility] ([facility]) [address] [facility] [place], [address], 07/21/2021 19:07:48 07/19/19 22 07/21/2021 COMP. METAB OLIC PANEL (14) carbon dioxide, total 26 mmol/ L 20-29 Not Available [facility] ([facility]) [address] [facility] [place], [address], 07/21/2021 19:07:48 07/19/19 22 07/21/2021 COMP. METAB OLIC PANEL (14) calcium 10.3 mg/dL 8.7-10 .2 above high normal Not Available [facility] ([facility]) [address] [facility] [place], [address], 07/21/2021 19:07:48 07/19/19 22 07/21/2021 COMP. METAB OLIC PANEL (14) protein, total 7.4 g/dL 6.0-8. 5 Not Available [facility] ([facility]) [address] [facility] [place], [address], 07/21/2021 19:07:48 07/19/19 22 07/21/2021 COMP. METAB OLIC PANEL (14) albumin 4.8 g/dL 3.9-5. 0 Not Available [facility] ([facility]) [address] [place], [address], 07/21/2021 19:07:48 07/19/19 22 07/21/2021 COMP. METAB OLIC PANEL (14) globulin, total 2.6 g/dL 1.5-4. 5 Not Available [facility] ([facility]) [address] [place], [address], 07/21/2021 19:07:48 07/19/19 22 07/21/2021 COMP. METAB OLIC PANEL (14) A/G ratio 1.8 1.2-2. 2 Not Available [facility] ([facility]) [address] [place], [address], 07/21/2021 19:07:48 07/19/19 22 07/21/2021 COMP. METAB OLIC PANEL (14) bilirubin, total <0.2 mg/dL 0.0-1. 2 Not Available [facility] ([facility]) [address] [place], [address], 07/21/2021 19:07:48 07/19/19 22 07/21/2021 COMP. METAB OLIC PANEL (14) alkaline phosphatase 94 IU/L 44-121 Not Available [facility] ([facility]) [address] [place], [address], 07/21/2021 19:07:48 07/19/19 22 07/21/2021 COMP. METAB OLIC PANEL (14) AST (SGOT) 18 IU/L 0-40 Not Available [facility] ([facility]) [address] [facility], [place], [address], 07/21/2021 19:07:48 07/19/19 22 07/21/2021 COMP. METAB OLIC PANEL (14) ALT (SGPT) 33 IU/L 0-32 above high normal Not Available [facility] ([facility]) [address] [facility], [place], [address], 07/21/2021 19:07:48 07/19/19 22 07/21/2021 CBC, PLATE LET, NO DIFFE RENTI AL WBC 9.7 x10e3 /uL 3.4-10 .8 Not Available [facility] ([facility]) [address] [facility], [place], [address], 07/21/2021 19:07:49 07/19/19 22 07/21/2021 CBC, PLATE LET, NO DIFFE RENTI AL RBC 5.58 x10e6 /uL 3.77-5 .28 above high normal Not Available [facility] ([facility]) [address] [facility], [place], [address], 07/21/2021 19:07:49 07/19/1907/21/2021 CBC, PLATE LET, NO DIFFE RENTI AL hemoglobin 15.4 g/dL 11.1-1 5.9 Not Available [facility] ([facility]) [address] [place], [address], 07/21/2021 19:07:49 07/19/1907/21/2021 CBC, PLATE LET, NO DIFFE RENTI AL hematocrit 45.7 % 34.0-4 6.6 Not Available [facility] ([facility]) [address] [place], [address], 07/21/2021 19:07:49 07/19/19 22 07/21/2021 CBC, PLATE LET, NO DIFFE RENTI AL MCV 82 fL 79-97 Not Available [facility] ([facility]) [address] [place], [address], 07/21/2021 19:07:49 07/19/19 22 07/21/2021 CBC, PLATE LET, NO DIFFE RENTI AL MCH 27.6 pg 26.6-3 3.0 Not Available [facility] ([facility]) [address] [facility], [place], [address], 07/21/2021 19:07:49 07/19/19 22 07/21/2021 CBC, PLATE LET, NO DIFFE RENTI AL MCHC 33.7 g/dL 31.5-3 5.7 Not Available [facility] ([facility]) [address] [facility], [place], [address], 07/21/2021 19:07:49 07/19/19 22 07/21/2021 CBC, PLATE LET, NO DIFFE RENTI AL RDW 12.3 % 11.7-1 5.4 Not Available [facility] ([facility]) [address] [facility], [place], [address], 07/21/2021 19:07:49 07/19/19 22 07/21/2021 CBC, PLATE LET, NO DIFFE RENTI AL platelets 260 x10e3 /uL 150-45 0 Not Available [facility] ([facility]) [address] [facility], [place], [address], 07/21/2021 19:07:49 07/19/1907/21/2021 CBC, PLATE LET, NO DIFFE RENTI AL NRBC HEEL SPLITTER Not Available [facility] ([facility]) [address] [facility], [place], [address], 07/21/2021 19:07:49 07/19/19 22 07/21/2021 LIPID PANEL cholesterol, total 217 mg/dL 100-19 9 above high normal Not Available [facility] ([facility]) [address] [place], [address], 07/21/2021 19:07:50 07/19/19 22 07/21/2021 LIPID PANEL triglyceride s 203 mg/dL 0-149 above high normal Not Available [facility] ([facility]) [address] [place], [address], 07/21/2021 19:07:50 07/19/19 22 07/21/2021 LIPID PANEL HDL cholesterol 48 mg/dL >39 Not Available [facility] ([facility]) [address] [place], [address], 07/21/2021 19:07:50 07/19/19 22 07/21/2021 LIPID PANEL VLDL cholesterol ronel 36 mg/dL 5-40 Not Available [facility] ([facility]) [address] [place], [address], 07/21/2021 19:07:50 07/19/19 22 07/21/2021 LIPID PANEL LDL chol calc ([facility]) 133 mg/dL 0-99 above high normal Not Available [facility] ([facility]) [address] [place], [address], 07/21/2021 19:07:50 07/19/19 22 07/21/2021 LIPID PANEL comment: HEEL SPLITTER Not Available [facility] ([facility]) [address] [place], [address], 07/21/2021 19:07:50 07/19/1907/21/2021 CARDI OVASC ULAR REPOR [...] t is avail able. Not Available [facility] ([facility]) [address] [place], [address], 07/21/2021 19:07:51 07/19/19 22 07/21/2021 CARDI JOSE BARNHART REPOR T pdf . Not Available [facility] ([facility]) [address] [facility], [place], [address], 07/21/2021 19:07:51 07/19/19 22 07/31/2021 COMPL IANCE [...] ronel consu ltati on, pleas e call [phone]. ===== ===== ===== ===== ===== ===== ===== ===== ===== ===== ===== ===== ===== === Not Available [facility] [address] [place] [address], [place], [address], 07/31/2021 10:13:13 07/19/19 22 07/31/2021 COMPL IANCE DRUG SHERYL SIS, UR pdf . Not Available [facility] [address], [place], [address], 07/31/2021 10:13:13 10/16/19 22 10/15/2021 HbA1c (hemo globi n A1c), blood HbA1c 9.9 Not Available In-Office Order Internal Use Only DO Not Attach Compendium DO Not Attach Compendium, Do Not Delete/merge, [id number] 10/15/2021 10:44:56 09/10/19 24 09/10/2023 PPD (vanessa fied prote in deriv ative ), skin test Result Negati ve Not Available In-Office Order Internal Use Only DO Not Attach Compendium DO Not Attach Compendium, Do Not Delete/merge, [id number] 09/08/2023 11:31:15 01/23/20 24 01/23/2024 US, obste tric No observ ation record ed. [facility] [address], [place], [address], 01/23/2024 14:30:51 08/13/19 25 08/13/2024 US, doppl er, echoc ardio gram, follo w-up No observ ation [facility] [address], [place], [address], 08/13/2024 14:29:40 Result Notes None recorded. Problems Name Problem SNOMED Code Status Onset Date Resolution Date Notes Provider Name and Address Organization Details Recorded Time Irregular periods 48808047 Active [facility] Attn: Kamaljitflaquita g,[address], [place], [address], [facility] [place] [place] 6 12:42:18 Amenorrhea 53279998 Active Sunitha Concepcion [facility] Attn: Accountin g,[address], [place], [address], [facility] [place], [place] 6 12:42:18 Problem Notes None recorded. Procedures Surgical History Date Name Laterality Status Provider Name and Address Organization Details Recorded Time 06/23/2020 Date of Last Pap Smear completed Yvette Stewart [place] - [facility] 08/31/2020 10:40:16 Imaging Results Imaging Date Name Status LastModified by Organiz ation Details LastModified Time 01/23/2024 US, obstetric completed [facility] [address], [place], [address], 01/23/2024 14:30:51 08/13/2024 US, doppler, echocardiogram , follow-up completed [facility] [address], [place], [address], 08/13/2024 14:29:40 Procedure Notes None recorded. Medical Equipment None Reported. Allergies Allergen ID Allergen Name Allergen Category Reaction Reaction Severity Criticality Documentation Date Start Date Code Code System Note Provider Name and Address Organization Details Recorded Time 94605 Product containin g penicilli n (product) medicatio n hives Not available Not available 03/06/2016 77972 8001 SNOMED Not Available Not Available Not Available [...] Luer-Christi Syringe 3 mL 22 x 1 12 USED TO DRAW UP METHOTREX ATE active [...] Syringe Ultra-Fine 0.3 mL 31 gauge x 15/64 USE 1 SYRINGE TO INJECT INSULIN FOUR [...] Updated DateTime 2 154.94 cm 37.2 kg/m2 35731.7 g 97.7 [degF] 98 % 98 % 111 /min 124 mm[Hg] 90 mm[Hg] Vandana Fraga [place] - [facility] 2 15:28:43 Date Recorded Body height Body temperature Oxygen saturation Oxygen saturation in Arterial blood by Pulse oximetry Heart rate Body mass index (BMI) Body weight Systolic blood pressure Diastolic blood pressure Provider Name and Address Organization Details Last Updated DateTime 2 154.94 cm 97.6 [degF] 98 % 98 % 93 /min 37.5 kg/m2 52909.7 3 g 120 mm[Hg] 92 mm[Hg] Yvette doyle MA [facility] 2 10:27:03 Date Recorded Body height Body mass index (BMI) Body weight Oxygen saturation Oxygen saturation in Arterial blood by Pulse oximetry Heart rate Systolic blood pressure Diastolic blood pressure Provider Name and Address Organization Details Last Updated DateTime 4 154.94 cm 38 kg/m2 94680.0 7 g 100 % 100 % 79 /min 110 mm[Hg] 70 mm[Hg] Nidhi Pitts MA [facility] 4 11:16:28 Date Recorded Body height Body mass index (BMI) Body weight Heart rate Oxygen saturation Oxygen saturation in Arterial blood by Pulse oximetry Systolic blood pressure Diastolic blood pressure Provider Name and Address Organization Details Last Updated DateTime 4 154.94 cm 38 kg/m2 26058.0 7 g 125 /min 99 % 99 % 128 mm[Hg] 92 mm[Hg] Nidhi Pitts MA [facility] 4 15:26:44 Social History Question Answer Notes LastModified by SciApsizat ion Details LastModified Time Tobacco Smoking Status Former Smoker Vandana Fraga MA [place], [place] - [facility] 05/12/2020 11:49:39 What Is Your Level Of [...] available 09/08/2019 If Patient Spent Time In [facility] - Does The Patient Live In [facility]? No Information not available 09/08/2019 In The 14 Days Before Symptom Onset, Have You Had Close Contact With A Person Who Is Under Investigation For COVID-19 While That Person Was Ill? No Information not available 09/08/2019 In The 14 Days Before Symptom Onset, Did The Patient Spend Time In [facility]? No Information not available 09/08/2019 Have [...] Anxious, Or Unable To Sleep At Night)? [id number] Information not available 08/31/2020 Do You Use [...] High Blood Pressure N Atrial Fibrillation N Kidney or Bladder Problems N Thyroid Problems N GI Problems N Depression N COPD N Blood Clots N Skin Problems N Eating Disorder N Anemia N Heart Attack ([place]) N Anxiety Disorder N Diabetes N Muscle, Joint, or Bone Problems N Seizures/Epilepsy N Acid Reflux (GERD) N Cancer N Stroke N Asthma Y Allergies N ADHD N Substance Abuse N High Cholesterol N Hepatitis N Liver Disease N Schizophrenia N Headaches N Osteoporosis N Heart Failure N Gynecological History Statement/Question Response Flow Light [...] - [facility] 09/03/2023 09:16:28 MMR 6 completed CHELITA [place], [place] [facility] 09/03/2023 09:16:28 meningococcal MPSV4 8 completed [place]HEL[place] [facility] 09/03/2023 09:16:28 Tdap 8 completed Vandana Fraga [place], [place] [facility] 09/03/2023 09:16:28 OPV 0 completed Vandana Fraga [place] [facility] 09/03/2023 09:16:28 OPV 5 completed Vandana Fr[place] [facility] 09/03/2023 09:16:28 OPV 5 completed Vandana Fraga [place] [facility] 09/03/2023 09:16:28 Influenza, split [...] - [facility] 09/03/2023 09:16:28 MMR 2 completed CHELITA Murray [facility] 07/18/2021 16:37:22 tetanus toxoid, unspecified formulation 5 completed Agueda gonzalez, [facility] 05/07/2016 14:08:19 Past Encounters Encounter ID Performer Location Encounter Start Date Encounter Closed Date Diagnosis/Indication Diagnosis SNOMED-CT Code Diagnosis ICD10 Code Diagnosis Note [id number] Sunitha Concepcion [facility] Constantin [place] ([place] [address]) [address] [facility] [place] [place] [address] 03/06/2016 11:52:53 03/06/2016 12:48:24 Gynecologic examination 62223159 Z01.419 Amenorrhea 15604909 N91. 2 Irregular periods 262260 07 N92.6 [id number] [facility] 2 [facility] [address] [place], [place] [address] [address] 05/07/2016 13:53:21 05/07/2016 14:42:10 Adult health examination 605202599 Z00.00 healthy diet and exercise discussed with pt Obesity 265295584 E66.9 TSH-ok ( done by Activities Volunteer) [id number] Sunitha Concepcion [facility] [place] ([place] [address]) [address] [facility] [place] [place] [address] 05/20/2016 16:44:31 05/21/2016 08:40:16 Amenorrhea 07740730 N91.2 [id number] Sunitha Concepcion [facility] [place] ([place] [address]) [address] [facility] [place] [place] [address] 09/30/2016 16:00:17 10/01/2016 08:57:30 Primary infertility 638221534 N97.9 [id number] MD Constantin Figueroa ([place] [address]) [address] [facility] [place] [place] [address] 10/03/2016 09:12:26 10/03/2016 14:45:34 Fertility care 049147593 Z31.84 If referral is not accepted will use letrozole or clomid for ovulation induction with the use of ovulation detection kit. [id number] ANTWON Cruz [address] [place] [address] 11/01/2016 11:13:13 11/01/2016 15:31:05 Hyperglycemia 55110098 R73.09 Morbid obesity 527912719 E66.01 [id number] Tom Delgado PA-C [facility] [address] [place] [address] 11/06/2016 10:10:01 11/06/2016 12:01:01 Type 2 diabetes mellitus 38974014 E11.9 [id number] Charisse Sanz, [facility] [address] [place] [address] 07/09/2017 13:44:41 07/16/2017 14:46:44 Irregular periods 76490926 N92.6 [id number] Rebecca Gardner MA [facility] [address] [place] [address] 10/15/2017 17:50:18 10/15/2017 19:31:31 Type 2 diabetes mellitus 10838312 E11.9 [id number] Tom Delgado PA-C [facility] [address] [place] [address] 12/10/2018 10:49:07 12/10/2018 12:09:52 Type 2 diabetes mellitus without complication 029167453 E11.9 Type 2 beau betes mellitus 05112705 E11.9 [id number] Tom Delgado PA-C [facility] [address] [place] [address] 02/16/2019 11:00:50 02/16/2019 12:30:26 Diabetes mellitus 09427948 E11.9 Type 2 beau betes mellitus 38454062 E11.9 Generalize d anxiety disorder 25626615 F41.1 [id number] Tom Delgado PA-C [facility] [address] [place] [address] 05/14/2019 10:02:49 05/14/2019 12:37:22 Body mass index 30+ - obesity 912659656 Z68.37 Type 2 beau betes mellitus 30403367 E11.9 Generalize d anxiety disorder 88154673 F41.1 Acute bronchitis 8937772 2 J20.9 Atopic dermatitis 183188 01 L20.89 [id number] Charisse Sanz [facility] 14 OB [address] [facility] [address] [place] [address] 05/19/2019 09:24:50 05/19/2019 15:26:49 Gynecologic examination 74475335 Z01.419 1. Counseled regarding prevention of STD's [...] year or sooner if needed. Genital warts 006978098 A63.0 Pt given instructio ns of rx for wart removal. Pt verbalized understand ing. Will call office if she would like removal scheduled. Venereal d isease screening 128283475 Z11.3 1. STD testing done per pt request 2. Educated pt on STD prevention , Condom use 3. Pt verbalized understand ing 4. Will follow up pending lab results, as needed or at next annual Trying to conceive [address] 9001 Z31.9 Pt educated on using tracking apps for ovulation as well as using ovulation kits otc. Pt educated on best time during month to ttc also the use of vitamins. [id number] Charisse Sanz [facility] 14 OB [address] [facility] [address] [place], [place] [address], [place] [address] 05/31/2019 15:16:46 06/01/2019 12:20:26 At increased risk of urinary tract infection 630558059 Z91.89 1. Will monitor as dip was negative. 2. Pt instructed to increase fluids, decrease soda, sugary beverages and caffeinate d beverages. 3. To call office if symptoms worsen or do not improve changes. [id number] ANTWON Cruz [facility] [address] [place] [address] 09/08/2019 16:13:04 09/08/2019 17:14:03 Abscess of skin of abdomen 0679958815 2807270 L02.211 Type 2 beau betes mellitus 06811329 E11.9 [id number] ANTWON Cruz [facility] [address] [place] [address] 09/13/2019 10:06:38 09/13/2019 11:52:36 Type 2 diabetes mellitus 51039040 E11.9 [id number] ANTWON Cruz [address] [place] [address] 11/08/2019 11:05:57 11/09/2019 09:01:38 Generalized anxiety disorder 20977566 F41.1 [id number] ANTWON Cruz [address] [place] [address] 01/18/2020 09:57:19 01/18/2020 12:55:20 Viral gastroenteritis 708523091 A08.39 Type 2 beau betes mellitus 16331166 E11.9 [id number] Tom Delgado PA-C [facility] [address] [place] [address] 05/12/2020 09:32:09 05/12/2020 12:22:27 Viral gastroenteritis 032500479 A08.39 [id number] ANTWON Cruz [facility] [address] [place] [address] 08/31/2020 10:31:17 09/01/2020 08:14:28 Uncontrolled type 2 diabetes mellitus 209066758 E11.65 Type 2 beau betes mellitus 64837087 E11.9 Moderate p ersistent asthma 410496673 J45.40 Cellulitis of abdominal wall 61800192 L03.908 [id number] ANTWON Cruz [address] [place] [address] 07/18/2021 15:09:15 07/18/2021 16:12:12 Type 2 diabetes mellitus 67232000 E11.9 Active or passive immunization 903750324 Z23 Body mass index 30+ - obesity 851642153 Z68.37 Generalize d anxiety disorder 03371644 F41.1 Long-term drug therapy 229058874 Z79.717 [id number] ANTWON Cruz [address] [place] [address] 07/25/2021 09:03:38 07/26/2021 10:22:02 Type 2 diabetes mellitus 10531168 E11.9 [id number] Vandana Fraga MA [facility] [address] [place] [address] 10/15/2021 10:16:31 10/15/2021 11:29:55 Type 2 diabetes mellitus 24334081 E11.9 Mild inter mittent asthma 947790630 J45.20 [id number] Tom Deglado PA-C [facility] [address] [place] [address] 09/08/2023 11:07:19 09/12/2023 11:40:28 Adult health examination [id number] Z00.00 Overweight 216162272 E66 .3 Type 2 beau betes mellitus 89064414 E11.9 [id number] Tom Delgado PA-C [facility] [address] [place] [address] 09/19/2023 15:09:49 09/23/2023 10:06:55 Dog bite of forearm 413939514 S51.851A Overweight [id number] E66 .3 Health Concerns Section Related Observation LastModified by Organization Detai ls LastModified Time None Recorded Concern Status LastModified by Organization Details LastModified Time None Recorded Advance Directives Directive None Recorded Payers Encounter Date Sequence Insurance Name Policy Number Policy Dey Covered Member ID Dey Member ID Guarantor Name 07/18/2021 1 [place] [id number] Harsh Pack [id number] [facility] 07/18/2021 2 [facility] (MEDICAID HMO) [id number] [facility] [id number] [facility] 07/25/2021 1 [place] [id number] Harsh Pack [id number] [facility] 07/25/2021 2 [facility] (MEDICAID HMO) [id number] [facility] [id number] [facility] 10/15/2021 1 [place] [id number] Harsh Pack [id number] [facility] 09/08/2023 1 [place] [id number] Harsh Pack [id number] [employer] 09/19/2023 1 [place] [id number] Harsh Pack [id number] Vera Pack Notes Date Note Type Note Provider Name [...] 3 years. Tom Delgado PA-C Attn: Accounting,[address] [place], [address], [facility] [place] [place] 07/18/2021 15:57:06 07/25/2021 text/html go over labs...a1c remains high...has resumed meds since last visit...sugars are improving down to 160s from 300s....getting more sleep...eating better...overall feeling much better Tom Delgado PA-C Attn: Accounting,[address] [place], [address], [facility] [place] [place] 07/25/2021 12:56:17 10/15/2021 text/html Vera Pack is [...] bowel or bladder changes. 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 Tom Delgado PA-C Attn: Accounting,[address] [place], [address], [facility] [place] [place] 09/19/2023 15:35:51 OBGyn Episode No OBEpisode recorded.
--- OUTSIDE RECORDS SUMMARY | 2024-09-04 10:45 | XMS_ITS | Clinical Summary ---
Author Organization [facility] Address [address] [place] [address] Phone Care Team Providers Care Freelance Patternmaker Name Role Phone Unavailable Primary Care Provider Unavailabl e Encounters Date Type Department Care Team Description 08/28/2024 External Device Data STL ABSTRACTION Provider, Abstract 08/27/2024 External Device Data STL ABSTRACTION Provider, Abstract 08/25/2024 External Device Data STL ABSTRACTION Provider, Abstract 08/23/2024 9:29 AM FITNESS WORKER - 08/23/2024 11:59 PM FITNESS WORKER Hospital Encounter [facility] [address] [place] [phone] Renetta Bee MD Discharge Disposition: Home or Self Care 08/23/2024 8:54 AM FITNESS WORKER - 08/23/2024 11:59 PM FITNESS WORKER Hospital Encounter [facility] [address] [place] [phone] Jorge Shine MD Discharge Disposition: Home or Self Care 08/10/2024 External Device Data STL ABSTRACTION Provider, Abstract 07/26/2024 7:58 AM FITNESS WORKER - 07/26/2024 11:59 PM FITNESS WORKER Hospital Encounter [facility] [address] [place] [phone] Jorge Shine MD Discharge Disposition: Home or Self Care 07/20/2024 External Device Data STL ABSTRACTION Provider, Abstract 07/14/2024 External Device Data STL ABSTRACTION Provider, Abstract 07/14/2024 External Device Data STL ABSTRACTION Provider, Abstract 06/29/2024 7:10 AM FITNESS WORKER - 06/29/2024 11:59 PM FITNESS WORKER Hospital Encounter [facility] [address] [place] [address] Alka Jones MD Discharge Disposition: Home or Self Care from Last 3 Months Social History Tobacco Use Types Packs/Day Years Used Date Smoking Tobacco: Never Assessed Comments Unknown Sex and Gender Information Value Date Recorded Sex Assigned at Not on file Legal Sex Female 11:03 AM FITNESS WORKER Gender Identity Not on file Sexual Orientation Not on file Plan of Treatment Health Maintenance Due Date Last Done Comments CERVICAL CANCER SCREENING 09/07/2015 DTAP/TDAP/TD VACCINES (6 - T d or Tdap) 07/21/2017 07/21/2007, 09/20/1999, 01/13/1996, Additional history exists INFLUENZA VACCINE (#1) 2024 03/28/2009 Preventative Visit- Commercial 06/23/2024 1 07/19/2018, 05/07/2016, 03/06/2016 HEPATITIS B VACCINES Completed 04/16/1995, 1994, 1994 HPV VACCINES Completed 04/04/2008, 01/21, 07/21/2007 Procedures Procedure Name Priority Date/Time Associated Diagnosis Comments US MONITORING NST Routine 08/23/2024 10:04 AM FITNESS WORKER Diabetes mellitus high risk Asthma complicating , antepartum Body mass index (BMI) of 40.0 to 44.9 in adult ([facility]) History of US OB FOLLOW UP PER FETUS Routine 08/23/2024 9:19 AM FITNESS WORKER Diabetes mellitus high risk Asthma complicating , antepartum Body mass index (BMI) of 40.0 to 44.9 in adult ([facility]) History of US OB FOLLOW UP PER FETUS Routine 07/26/2024 8:27 AM FITNESS WORKER Type 2 diabetes mellitus with other specified complication, unspecified whether assisted insulin use ([facility]) US OB FOLLOW UP PER FETUS Routine 06/29/2024 7:29 AM FITNESS WORKER Type 2 diabetes mellitus with other specified complication, unspecified whether assisted insulin use ([facility]) from Last 3 Months Results * US MONITORING NST (08/23/2024 10:04 AM FITNESS WORKER) Anatomical Region Laterality Modality Ultrasound 08/23/2024 9:42 AM FITNESS WORKER [facility] 08/23/2024 9:55 AM FITNESS WORKER CHRISTIE NST ----- Pat. Name: VERA SANTILLAN Study Date: 08/23/2024 9:42am Pat. NO: [id number] Referring MD: ALMA TONEY MD Site: [facility] Manager Government: : 1995 Age: 28 ----- INDICATION ----- Diabetes type 2 Asthma Complicating Maternal Obesity (BMI<40) Complicating Maternal Care for Low Transverse Scar from Previous Delivery (Previous ) History of Ectopic , Currently CODING ----- Diagnoses Z3A.37: Weeks of gestation O09.13: Supervision of with history of ectopic O34.211: Maternal care for low transverse scar from previous delivery O99.213: Obesity complicating O99.513: Diseases of the respiratory system complicating O24.113: Pre-existing type 2 diabetes mellitus, in Z36.2: Encounter for other screening follow-up Procedures 80193: NST/ monitoring HISTORY ----- OB History 4. Para 1 T1A2L1 MATERNAL ASSESSMENT ----- Physical Exam Weight 88 kg. Initial weight 89 kg, 196 lb. BMI 36.66 kg/m . Initial BMI 37.03 kg/m . Weight gain -1 kg, -2 lb. Blood pressure 109/67 mmHg. Heart rate 85 bpm METHOD ----- EFM ----- Garcia . Number of fetuses: 1 DATING ----- GA by prior assessment 37 w + 0 d TIMMY by prior assessment: 09/13/2024 Method of dating: Restore dating from previous exam Assigned: based on stated TIMMY, selected on 05/06/2024 Assigned GA 37 w + 0 d Assigned TIMMY: 09/13/2024 NON STRESS TEST ----- NST interpretation: reactive. Test duration 20 min. Baseline FHR 155 bpm. Baseline variability: moderate. Accelerations: Present. Decelerations: Not present. Uterine activity: absent COMMENT ----- Nursing notes: Patient reports positive movement with no bleeding, leaking or ifeoma. Add on for elevated HR. Patient scheduled twice weekly in doctor' s office. IMPRESSION ----- testing @ 37w 0d for T2DM and tachycardia. -The NST is reactive. -Amniotic fluid indices are within normal limits. -Reassuring testing. Continue twice weekly testing. Thank you for allowing us to participate in the care of your patient. Procedure Note Renetta Bee MD - 08/23/2024 [facility]I NST ----- Pat. Name:BILL SANTILLANMariam Date:08/23/2024 9:42am Pat. NO: [id number] :ALMA TONEY MD Site:[facility]atie[facility]ographer: :1995Age:28 ----- INDICATION ----- Diabetes type 2 Asthma Complicating Maternal Obesity (BMI<40) Complicating Maternal Care for Low Transverse Scar from Previous Delivery (Previous ) History of Ectopic , Currently CODING ----- Diagnoses Z3A.37: Weeks of gestation O09.13: Supervision of with history ofectopic O34.211: Maternal care for low transverse scarfrom previous delivery O99.213: Obesity complicating O99.513: Diseases of the respiratory systemcomplicating O24.113: Pre-existing type 2 diabetes mellitus, inpregnancy Z36.2: Encounter for other screeningfollow-up Procedures 99061: NST/ monitoring HISTORY ----- OB History 4. Para 1 T1A2L1 MATERNAL ASSESSMENT ----- Physical Exam Weight 88 kg. Initial weight 89 kg, 196 lb. BMI36.66 kg/m . Initial BMI 37.03 kg/m . Weight gain -1 kg, -2 lb. Blood pressure 109/67 mmHg. Heart rate 85bpm METHOD ----- EFM ----- Garcia . Number of fetuses: 1 DATING ----- GA by prior [id number] w + 0 d TIMMY by prior assessment:09/13/2024 Method of dating:Restore dating from previous exam Assigned:based on stated TIMMY, selected on 05/06/2024 Assigned GA37 w + 0 d Assigned TIMMY:09/13/2024 NON STRESS TEST ----- NST interpretation: reactive. Test duration 20 min. Baseline FHR 155 bpm.Baseline variability: moderate. Accelerations: Present. Decelerations: Not present. Uterine activity: absent COMMENT ----- Nursing notes: Patient reports positive movement with no bleeding,leaking or ifeoma. Add on for elevated HR. Patient scheduled twice weekly in doctor' s office. IMPRESSION ----- testing @ 37w 0d for T2DM and tachycardia. -The NST is reactive. -Amniotic fluid indices are within normal limits. -Reassuring testing. Continue twice weekly testing. Thank you for allowing us to participate in the care of your patient. us Renetta Bee MD US ORDERABLES Final Result * US OB FOLLOW UP PER FETUS (08/23/2024 9:19 AM FITNESS WORKER) Only the most recent of3 resultswithin the time period is included. Anatomical Region Laterality Modality Pelvis Ultrasound 08/23/2024 8:53 AM FITNESS WORKER Narrative 08/23/2024 9:35 AM FITNESS WORKER STL FOLLOW UP ----- Pat. Name: VERA SANTILLAN Study Date: 08/23/2024 8:53am Pat. NO: [id number] Referring MD: ALMA TONEY MD Site: [facility] Manager Government: Kym Early RDMS : 1995 Age: 28 ----- INDICATION ----- Screening Follow-Up Diabetes type 2 Asthma Complicating Maternal Obesity (BMI<40) Complicating Maternal Care for Low Transverse Scar from Previous Delivery (Previous ) History of Ectopic , Currently CODING ----- Diagnoses Z3A.37: Weeks of gestation O09.13: Supervision of with history of ectopic O34.211: Maternal care for low transverse scar from previous delivery O99.213: Obesity complicating O99.513: Diseases of the respiratory system complicating O24.113: Pre-existing type 2 diabetes mellitus, in Z36.2: Encounter for other screening follow-up Procedures 23294: Ultrasound, uterus, real time with image documentation, follow up, transabdominal approach per fetus HISTORY ----- OB History 4. Para 1 T1A2L1 MATERNAL ASSESSMENT ----- Physical Exam Initial weight 89 kg, 196 lb. Initial BMI 37.03 kg/m METHOD ----- Transabdominal ultrasound examination ----- Garcia . Number of fetuses: 1 DATING ----- GA by prior assessment 37 w + 0 d TIMMY by prior assessment: 09/13/2024 Ultrasound examination on: 08/23/2024 GA by U/S based upon: AC, BPD, EFW, Femur, HC GA by U/S 36 w + 2 d TIMMY by U/S: 09/18/2024 Method of dating: Restore dating from previous exam Assigned: based on stated TIMMY, selected on 05/06/2024 Assigned GA 37 w + 0 d Assigned TIMMY: 09/13/2024 BIOMETRY ----- BPD 86.2 mm 34w 5d 10% Hadlock OFD 116.9 mm -/- 92% Nga HC 325.8 mm 36w 6d 23% Hadlock AC 338.7 mm 37w 5d 83% Hadlock Femur 68.7 mm 35w 2d 11% Hadlock HC / AC 0.96 20% Nicolaides Weight Calculation: EFW 3,017 g 37w 0d 49% Hadlock EFW (lb,oz) 6 lb 10 oz EFW by Hadlock ([id number]) Head / Face / Neck Biometry: Service Desk Analyst 4.1 mm Extremities / Bony Struc Biometry: FL / BPD 0.80 FL / HC 0.21 FL / AC 0.20 GENERAL EVALUATION ----- Cardiac activity present. FHR 170 bpm. movements: present. Presentation: cephalic Placenta: Placental site: posterior Umbilical cord: Cord vessels: 3 vessel cord. Amniotic fluid: Amount of AF: normal amount. MVP 4.0 cm. BISHNU 12.6 cm. Q1 3.0 cm, Q2 2.8 cm, Q3 2.8 cm, Q4 4.0 cm ANATOMY ----- The following structures appear normal: Head / Neck Cranium. Lateral ventricles. Midline falx. Abdomen Stomach. Bladder. GROWTH OVERVIEW ----- Exam date GA [...] 33% 315.2 97% 62.1 19% 2,333 72% 08/23/2024 37w 0d 86.2 10% 325.8 23% 338.7 83% 68.7 11% 3,017 49% COMMENT ----- Patient's name and date of were verified by the stem roller or crusher operator prior to the exam IMPRESSION ----- Garcia @ 37w 0d complicated by T2DM. - The biometry is consistent with dates with the EFW at the 49% percentile. - Amniotic fluid indices are within normal limits. - Limited anatomy is unremarkable. The patient had an NST following the ultrasound due to tachycardia noted on the ultrasound; please see separate report for details. Further ultrasounds may be scheduled as clinically indicated. Thank you for allowing us to participate in the care of this patient. Procedure Note Renetta Bee MD - 08/23/2024 STL FOLLOW UP ----- Pat. Name:Vazquez SANTILLAN Date:08/23/2024 8:53am Pat. NO: [id number] MD:ALMA TONEY MD [facility]Kym Early RDMS :1995Age:28 ----- INDICATION ----- Screening Follow-Up Diabetes type 2 Asthma Complicating Maternal Obesity (BMI<40) Complicating Maternal Care for Low Transverse Scar from Previous Delivery (Previous ) History of Ectopic , Currently CODING ----- Diagnoses Z3A.37: Weeks of gestation O09.13: Supervision of with history ofectopic O34.211: Maternal care for low transverse scarfrom previous delivery O99.213: Obesity complicating O99.513: Diseases of the respiratory systemcomplicating O24.113: Pre-existing type 2 diabetes mellitus, inpregnancy Z36.2: Encounter for other screeningfollow-up Procedures 57750: Ultrasound, uterus, real time withimage documentation, follow up, transabdominal approach per fetus HISTORY ----- OB History 4. Para 1 T1A2L1 MATERNAL ASSESSMENT ----- Physical Exam Initial weight 89 kg, 196 lb. Initial BMI 37.03kg/m METHOD ----- Transabdominal ultrasound examination ----- Garcia . Number of fetuses: 1 DATING ----- GA by prior [id number] w + 0 d TIMMY by prior assessment:09/13/2024 Ultrasound examination on:08/23/2024 GA by U/S based upon:AC, BPD, EFW, Femur, HC GA by U/S36 w + 2 d TIMMY by U/S:09/18/2024 Method of dating:Restore dating from previous exam Assigned:based on stated TIMMY, selected on 05/06/2024 Assigned GA37 w + 0 d Assigned TIMMY:09/13/2024 BIOMETRY ----- BPD 86.2 mm 34w 5d 10%Hadlock OFD 116.9 mm -/- 92%Nga HC 325.8 mm 36w 6d 23%Hadlock AC 338.7 mm 37w 5d 83%Hadlock Femur 68.7 mm 35w 2d 11%Hadlock HC / AC 0.96 20%Nicolaides Weight Calculation: EFW 3,017 g 37w 0d49% Hadlock EFW (lb,oz) 6 lb 10 oz EFW by Hadlock ([id number]) Head / Face / Neck Biometry: Service Desk Analyst 4.1mm Extremities / Bony Struc Biometry: FL / BPD 0.80 FL / HC 0.21 FL / AC 0.20 GENERAL EVALUATION ----- Cardiac activity present. FHR 170 bpm. movements: present.Presentation: cephalic Placenta: Placental site: posterior Umbilical cord: Cord vessels: 3 vessel cord. Amniotic fluid: Amount of AF: normal amount. MVP 4.0 cm. BISHNU 12.6 cm. Q13.0 cm, Q2 2.8 cm, Q3 2.8 cm, Q4 4.0 cm ANATOMY ----- The following structures appear normal: Head / Neck Cranium. Lateral ventricles. Midline falx. Abdomen Stomach. Bladder. GROWTH OVERVIEW ----- Exam date GA [...] 303.9 33% 315.2 97%62.1 19% 2,333 72% 08/23/2024 37w 0d 86.2 10% 325.8 23% 338.7 83%68.7 11% 3,017 49% COMMENT ----- Patient's name and date of were verified by the stem roller or crusher operator prior tothe exam IMPRESSION ----- Garcia @ 37w 0d complicated by T2DM. - The biometry is consistent with dates with the EFW at the 49%percentile. - Amniotic fluid indices are within normal limits. - Limited anatomy is unremarkable. The patient had an NST following the ultrasound due to tachycardia notedon the ultrasound; please see separate report for details. Further ultrasounds may be scheduled as clinically indicated. Thank you for allowing us to participate in the care of this patient. us Jorge Shine MD ORDERABLES Final Re sult from Last 3 Months Insurance ADMINISTRATIVE CONCEPTS LBP [facility]
--- OUTSIDE RECORDS SUMMARY | 2024-09-04 10:45 | XMS_ITS | Clinical Summary ---
Author Organization [address] Address [address] [place] [address] Care Team Providers Care Overlock Elastic Attacher Name Role Phone Jorge Delgado Primary Care Provider [phone] Allergies Active Allergy Reactions Criticality Noted Date [...] strain, acute, initial encounter [address] away driver, initial encounter 024 Type 2 diabetes [...] No history of macrovascular disease - CVA, DE. Sample freestyle rob 2 placed. Assessment & [...] No history of macrovascular disease - CVA, DE. Sample freestyle rob 2 placed. Assessment & [...] No history of macrovascular disease - CVA, DE. Reviewed and return demonstrated the correct way [...] on file Legal Sex Female 1:45 AM CURTAIN STRETCHER Gender Identity Not on file Sexual Orientation [...] C Screening 1995 Dilated Eye Exam 1994 Varicella Vaccines (1 of 2 - 13+ 2-dose series) 09/07/2007 Regular Well Visit/Exam 18-64 2012 Pneumococcal vaccine <65 (1 of 2 - PCV) 2013 DTaP/Tdap/Td Vaccine (7 - Td or Tdap) [...] Blood specimen (specimen) 01/15/2022 3:36 PM CDT Milla Patel NP POINT OF CARE TEST [...] - EXTERNAL LAB SCRIBED eGFR in NonAfrican Burmese >60 - - - EXTERNAL LAB Blood specimen (specimen) 08/20/2021 Historical Provider LAB BLOOD ORDERABLES Candy amin Result EXTERNAL LAB from Last 3 Months or Most Recently Relevant to Health Maintenance Insurance [employer] Member Subscriber Plan / Payer (Ef fective 2021-Present) Name:Vera Santillan Relation to Subscriber:Self Name:Vera Santillan Payer ID:[id number] (NAIC) Type: [employer] Address: [facility] [id number] [place] [facility] Care Teams Overlock Elastic Attacher Relationship Specialty Start Date End Date Jorge Delgado PA [address] [place] [address] PCP - General 12/22/13
--- OUTSIDE RECORDS SUMMARY | 2024-09-04 10:46 | XMS_ITS | Referral Summary ---
Author Organization [facility] Address [address] [place] [address] Care Team Providers Care Finisher Plate Name Role Phone Unavailable Primary Care Provider Unavailabl e Source Comments [facility],non-owned Affiliates and Associated Physician Practices is amultiple site organization consisting of ambulatory clinics and hospital sitesin [place], [place], [place] and [place]. This disclosure is being madepursuant to the Care Everywhere program and may not contain all information available regarding this patient. Last updated 18.[facility] Clarity Social History Tobacco Use Types Packs/Day Years Used Date Smoking Tobacco: Never Assessed Sex and Gender Information Value Date Recorded Sex Assigned at Not on file Gender Identity Not on file Sexual Orientation Not on file Plan of Treatment Not on file
--- OUTSIDE RECORDS SUMMARY | 2024-09-04 10:46 | XMS_ITS | Clinical Summary ---
Author Organization [facility] Address [address] [place] [address] Care Team Providers Care Food Mixer Assembler Name Role Phone Unavailable Primary Care Provider Unavailabl e Source Comments [facility],non-owned Affiliates and Associated Physician Practices is amultiple site organization consisting of ambulatory clinics and hospital sitesin [place], [place], [place] and [place]. This disclosure is being madepursuant to the Care Everywhere program and may not contain all information available regarding this patient. Last updated 18.[facility] Social History Tobacco Use Types Packs/Day Years [...] - 19+ 3-dose series) 2013 COVID-19 VACCINE (2023-2 5 season) 2024 INFLUENZA VACCINE (#1) 2024 DEPRESSION SCREENING 06/23/2024 ZOSTER VACCINE (1 of 2) 2044 HIB VACCINE Aged Out No longer eligi ble based on patient's age to complete this topic HPV VACCINE Aged Out No longer eligi ble based on patient's age to complete this topic MENINGOCOCCAL (Group B) VACC INE SHARED DECISION-MAKING Aged Out No longer eligibl e based on patient's age to complete this topic MENINGOCOCCAL GROUPS A/C/Y/W VACCINE Aged Out No longer eligible b ased on patient's age to complete this topic PNEUMOCOCCAL VACCINE Aged Out No long er eligible based on patient's age to complete this topic
--- OUTSIDE RECORDS SUMMARY | 2024-09-04 10:46 | XMS_ITS | Encounter Summary ---
Author Organization [facility] Address [address] [place] [address] Care Team Providers Care Senior Credit Analyst Name Role Phone Jorge Delgado Primary Care Provider [phone] Encounter Details Date Type Department Care Team (Late st Contact Info) Description 02/15/2020 Telephone [facility] [address] [place] [address] Ledy Foley RT Social History Tobacco Use Types Packs/Day Years Used Date Smoking Tobacco: Some Days Smokeless Tobacco: Never Alcohol Use Standard Drinks/Week Comments No 0 (1 standard drink = 0.6 oz pur e alcohol) Comments No Sex and Gender Information Value Date Recorded Sex Assigned at Not on file Legal Sex Female 1:45 AM GROUP LEADER Gender Identity Not on file Sexual Orientation Not on file documented as of this encounter Plan of Treatment Not on file documented as of this encounter Visit Diagnoses Not on filedocumented in this encounter Care Teams Senior Credit Analyst Relationship Specialty Start Date End Date Jorge Delgado PA [address] [place] [address] PCP - General 12/22/13 documented as of this encounter
--- OUTSIDE RECORDS SUMMARY | 2024-09-04 10:46 | XMS_ITS | Encounter Summary ---
Author Organization [facility] Address [address] [facility] [place] [address] Care Team Providers Care Sorter Operator Name Role Phone Unavailable Primary Care Provider Unavailabl e Encounter Details Date Type Department Care Team (Late st Contact Info) Description 09/04/2021 Lab Requisition [facility] [address] [place] [address] Unknown, Provider Social History Tobacco Use Types [...] Quantitative <1.20 mIU/mL 09/05/19 7:42 PM CDT [facility] Blood BLOOD SPECIMEN / Unknown Venipuncture / Unknown 09/04/2021 3:10 PM CDT 09/04/2021 6:51 PM CDT Narrative [facility] - 09/04/2021 7:42 PM CDT hCG [...] Provider Unknown LAB - CHEMISTRY MELI ARENAS [facility] Organization Address City/State/[facility] Co de Phone Number [facility] [address] [place], [place] [phone] documented in this encounter Visit Diagnoses Not on filedocumented in this encounter
--- OUTSIDE RECORDS SUMMARY | 2024-09-04 10:46 | XMS_ITS | Patient Health Summary ---
Author Organization [facility] Address [address] [place] [address] Care Team Providers Care Automatic Equipment Technician Name Role Phone Unavailable Primary Care Provider Unavailabl e Note from [facility],non-owned Affiliates and Associated Physician Practices is amultiple site organization consisting of ambulatory clinics and hospital sitesin [place], [place], [place] and [place]. This disclosure is being madepursuant to the Care Everywhere program and may not contain all information available regarding this patient. Last updated 18.[facility] Social History Tobacco Use Types Packs/Day Years [...] Quantitative <1.20 mIU/mL 09/05/19 7:42 PM CDT [facility] Blood BLOOD SPECIMEN / Unknown Venipuncture / Unknown 09/04/2021 3:10 PM CDT 09/04/2021 6:51 PM CDT Narrative [facility] - 09/04/2021 7:42 PM CDT hCG [...] Provider Unknown LAB - CHEMISTRY MELI ARENAS [facility] [address] [place] [address] * (ABNORMAL) CBC WITH DIFFERENTIAL (08/14/2021 10:52 AM [facility]) [facility] WBC 9.7 4.4 - 10.7 x10E9/L 08/14/2021 11:[address] [facility] WBC Corrected 08/14/2021 11:[address] [facility] RBC 5.21(H) 3.80 - 5.20 x10E12/L 08/14/2021 11:[address] [facility] Hemoglobin 14.1 12.0 - 15.6 gm/dL 08/14/2021 11:[address] [facility] Hematocrit 43.3 35.9 - 45.5 % 08/14/2021 11:[address] [facility] MCV 83.1 80.7 - 98.3 fl 08/14/2021 11:[address] [facility] MCH 27.1 26.7 - 34.0 pg 08/14/2021 11:[address] [facility] MCHC 32.6 30.8 - 35.9 gm/dL 08/14/2021 11:[address] [facility] Platelet Count 273 153 - 416 x10E9/L 08/14/2021 11:[address] [facility] RDW-CV 12.4 12.1 - 14.9 % 08/14/2021 11:[address] [facility] MPV 10.6 9.4 - 12.9 fl 08/14/2021 11:[address] [facility] Neutrophils % 69.1 44.0 - 73.0 % 08/14/2021 11:[address] [facility] Lymphocytes % 23.0 20.0 - 43.0 % 08/14/2021 11:[address] [facility] Monocytes % 5.4 5.0 - 13.0 % 08/14/2021 11:[address] [facility] Eosinophils % 1.8 0.0 - 6.0 % 08/14/2021 11:[address] [facility] Basophils % 0.4 0.0 - 2.0 % 08/14/2021 11:[address] [facility] Immature Granulocytes 0.3 0 - 1 % 08/14/2021 11:[address] [facility] Neutrophil Absolute 6.72 2.01 - 7.14 x10E9/L 08/14/2021 11:[address] [facility] Lymphocytes Absolute 2.23 1.07 - 3.94 x10E9/L 08/14/2021 11:[address] [facility] Monocytes Absolute 0.52 0.26 - 1.07 x10E9/L 08/14/2021 11:[address] [facility] Eosinophils Absolute 0.17 0 - 0.47 x10E9/L 08/14/2021 11:[address] [facility] Basophils Absolute 0.04 0 - 0.08 x10E9/L 08/14/2021 11:[address] [facility] Immature Granulocytes Absolute 0.03 0.00 - 0.06 x10E9/L 08/14/2021 11:[address] [facility] nRBC Auto 0 /100 WBC 08/14/2021 11:[address] [facility] Blood BLOOD SPECIMEN / Unknown Venipuncture / Unknown 08/14/2021 10:52 AM [facility] 08/14/2021 10:52 AM [facility] Jaden Lyons MD LAB - HEMATOLOGY ORD ERABLES [facility] [address] [place], [place] [id number] * (ABNORMAL) COMPREHENSIVE METABOLIC PANEL (08/14/2021 10:52 AM [facility]) [facility] Signature Glucose 296(H) 70 - 105 mg/dL 08/14/2021 11:[address] [facility] Sodium 138 136 - 145 mmol/L 08/14/2021 11:[address] [facility] Potassium 4.4 3.5 - 5.1 mmol/L 08/14/2021 11:[address] [facility] Chloride 102 98 - 107 mmol/L 08/14/2021 11:[address] [facility] CO2 26 23 - 31 mmol/L 08/14/2021 11:[address] [facility] Calcium 9.2 8.4 - 10.4 mg/dL 08/14/2021 11:[address] [facility] Anion Gap 10 8 - 18 mmol/L 08/14/2021 11:[address] [facility] BUN 8 7 - 18.7 mg/dL 08/14/2021 11:[address] [facility] Creatinine 0.73 0.57 - 1.11 mg/dL 08/14/2021 11:[address] [facility] Alkaline Phosphatase 68 40 - 150 U/L 08/14/2021 11:[address] [facility] ALT 33 0 - 61 U/L 08/14/2021 11:[address] [facility] AST 15 5 - 34 U/L 08/14/2021 11:[address] [facility] Protein Total 6.6 6.4 - 8.3 gm/dL 08/14/2021 11:[address] [facility] Albumin 4.2 3.5 - 5.2 gm/dL 08/14/2021 11:[address] [facility] Bilirubin Total 0.3 0.2 - 1.2 mg/dL 08/14/2021 11:[address] [facility] eGFR by MDRD >60 >60 mL/min/1.7 3m2 08/14/2021 11:[address] [facility] eGFR by MDRD >60 >60 mL/min/1.7 3m2 08/14/2021 11:[address] [facility] Blood BLOOD SPECIMEN / Unknown Venipuncture / Unknown 08/14/2021 10:52 AM WINDOW/DISTRIBUTION CLERK 08/14/2021 10:52 AM [facility] Jaden Lyons MD LAB - CHEMISTRY MELI ARENAS [facility] [address] [place] [address]
--- OUTSIDE RECORDS SUMMARY | 2024-09-04 10:46 | XMS_ITS | Encounter Summary ---
Author Organization [facility] Address [address] [place] [address] Care Team Providers Care Paste Plant Supervisor Name Role Phone Unavailable Primary Care Provider Unavailabl e Encounter Details Date Type Department Care Team (Late st Contact Info) Description 08/14/2021 Lab Requisition [facility] [address] [place] [address] Jaden Lyons MD [address] [place] [address] Social History Tobacco Use Types Packs/Day Years [...] W AUTO DIFFERENTIAL STAT 08/14/2021 10:52 AM CUSTOMER SERVICER COMPREHENSIVE METABOLIC PANEL STAT 08/14/2021 10:52 AM CUSTOMER SERVICER documented in this encounter Results * (ABNORMAL) CBC WITH DIFFERENTIAL (08/14/2021 10:52 AM CUSTOMER SERVICER) WBC 9.7 4.4 - 10.7 x10E9/L 08/14/2021 11:03 AM CUSTOMER SERVICER [facility] WBC Corrected 08/14/2021 11:03 AM CUSTOMER SERVICER [facility] RBC 5.21(H) 3.80 - 5.20 x10E12/L 08/14/2021 11:03 AM CUSTOMER SERVICER [facility] Hemoglobin 14.1 12.0 - 15.6 gm/dL 08/14/2021 11:03 AM CUSTOMER SERVICER [facility] Hematocrit 43.3 35.9 - 45.5 % 08/14/2021 11:03 AM CUSTOMER SERVICER [facility] MCV 83.1 80.7 - 98.3 [...] Unknown Venipuncture / Unknown 08/14/2021 10:52 AM CUSTOMER SERVICER 08/14/2021 10:52 AM [facility] MD LAB - HEMATOLOGY ORD ERABLES [facility] [address] [place], [place] [id number] * (ABNORMAL) COMPREHENSIVE METABOLIC PANEL (08/14/2021 10:52 AM [facility] Glucose 296(H) 70 - 105 mg/dL 08/14/2021 [...] 3.5 - 5.2 gm/dL 08/14/2021 11:21 AM CUSTOMER SERVICER [facility] Bilirubin Total 0.3 0.2 - 1.2 mg/dL 08/14/2021 11:21 AM CUSTOMER SERVICER [facility] eGFR by MDRD >60 >60 mL/min/1.7 3m2 08/14/2021 11:21 AM CUSTOMER SERVICER [facility] eGFR by MDRD >60 >60 mL/min/1.7 3m2 08/14/2021 11:21 AM CUSTOMER SERVICER [facility] Blood BLOOD SPECIMEN / Unknown Venipuncture / Unknown 08/14/2021 10:52 AM CUSTOMER SERVICER 08/14/2021 10:52 AM CUSTOMER SERVICER Jaden Lyons MD LAB - CHEMISTRY MELI ARENAS [facility] Organization Address City/State/[facility] Co de Phone Number [facility] [address] [place] [address] documented in this encounter Visit Diagnoses Not on filedocumented in this encounter
[2024-09-04 12:21] LABS: Hemoglobin 11.5 g/dL (12.0-15.0); Mean Corpuscular HGB Conc 31.1 g/dl (32-36); Mean Corpuscular Hemoglobin 22.6 pg (26-34); Mean Corpuscular Volume 72.8 fl (80-100); Mean Platelet Volume 11.3 fl (7.4-10.4); Platelet Count Result 225 k/mm3 (150-375); Red Blood Count 5.08 M/mm3 (4.2-5.4)
[2024-09-04 13:12] LABS: HIV 1/2 Ab P24 Ag Result Negative (Negative)
[2024-09-04 13:16] LABS: Syphilis IgG/IgM Antibody Negative (Negative)
== END 2024-09-04 10:39 | disposition home or self-care (01) ==
LOC: ANHLAB 10:44
PROVIDERS: PCP Physician Assistant; Visit Provider Obstetrics & Gynecology Gynecology
DX: Z01.812 Encounter for preprocedural laboratory examination (principal)
CPT/HCPCS: 36415; 85027; 86593; 86703; 86850; 86900; 86901; G0432

== ENCOUNTER 2024-09-06 05:21 | Inpatient (IN) | payer OTHER, SELFPAY ==
[2024-09-06] VITALS (82 sets, daily range): BP systolic 105–155; BP diastolic 47–139; PULSE 63–254; RESP 12–20; TEMP 36.1–37; O2SAT 98–100; BMI 38.9
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
--- OUTSIDE RECORDS SUMMARY | 2024-09-06 00:56 | XMS_ITS | Encounter Summary ---
Author Organization [facility] Address [address] [place] [address] Care Team Providers Care Auto Body Repairman Name Role Phone Jorge Delgado Primary Care Provider [phone] Encounter Details Date Type Department Care Team (Late st Contact Info) Description 02/15/2020 Telephone [facility] - [facility] [address] [place] [address] Ledy Foley RT Social History Tobacco Use Types Packs/Day Years Used Date Smoking Tobacco: Some Days Smokeless Tobacco: Never Alcohol Use Standard Drinks/Week Comments No 0 (1 standard drink = 0.6 oz pur e alcohol) Comments No Sex and Gender Information Value Date Recorded Sex Assigned at Not on file 

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
--- OUTSIDE RECORDS SUMMARY | 2024-09-06 00:56 | XMS_ITS | Encounter Summary ---
Author Organization [facility] Address [address] [place] [address] Care Team Providers Care Adult Nurse Practitioner Name Role Phone Unavailable Primary Care Provider Unavailabl e Encounter Details Date Type Department Care Team (Late st Contact Info) Description 08/14/2021 Lab Requisition [facility] [address] [place] [address] Jaden Lyons MD [address] [place] [address] Social History Tobacco Use Types Packs/Day Years [...] W AUTO DIFFERENTIAL STAT 08/14/2021 10:52 AM CONCRETE MASON COMPREHENSIVE METABOLIC PANEL STAT 08/14/2021 10:52 AM CONCRETE MASON documented in this encounter Results * (ABNORMAL) CBC WITH DIFFERENTIAL (08/14/2021 10:52 AM CONCRETE MASON) WBC 9.7 4.4 - 10.7 x10E9/L 08/14/2021 11:03 AM CONCRETE MASON [facility] WBC Corrected 08/14/2021 11:03 AM CONCRETE MASON [facility] RBC 5.21(H) 3.80 - 5.20 x10E12/L 08/14/2021 11:03 AM CONCRETE MASON [facility] Hemoglobin 14.1 12.0 - 15.6 gm/dL 08/14/2021 11:03 AM CONCRETE MASON [facility] Hematocrit 43.3 35.9 - 45.5 % 08/14/2021 11:03 AM CONCRETE MASON [facility] MCV 83.1 80.7 - 98.3 fl 08/14/2021 11:[address] [facility] MCH 27.1 26.7 - 34.0 pg 08/14/2021 11:[address] [facility] MCHC 32.6 30.8 - 35.9 gm/dL 08/14/2021 11:[address] [facility] Platelet Count 273 153 - 416 x10E9/L 08/14/2021 11:[address] [facility] RDW-CV 12.4 12.1 - 14.9 % 08/14/2021 11:[address] [facility] MPV 10.6 9.4 - 12.9 fl 08/14/2021 11:[address] [facility] Neutrophils % 69.1 44.0 - 73.0 % 08/14/2021 11:[address] [facility] Lymphocytes % 23.0 20.0 - 43.0 % 08/14/2021 11:[address] [facility] Monocytes % 5.4 5.0 - 13.0 % 08/14/2021 11:[address] [facility] Eosinophils % 1.8 0.0 - 6.0 % 08/14/2021 11:[address] [facility] Basophils % 0.4 0.0 - 2.0 % 08/14/2021 11:[address] [facility] Immature Granulocytes 0.3 0 - 1 % 08/14/2021 11:[address] [facility] Neutrophil Absolute 6.72 2.01 - 7.14 x10E9/L 08/14/2021 11:[address] [facility] Lymphocytes Absolute 2.23 1.07 - 3.94 x10E9/L 08/14/2021 11:[address] [facility] Monocytes Absolute 0.52 0.26 - 1.07 x10E9/L 08/14/2021 11:[address] [facility] Eosinophils Absolute 0.17 0 - 0.47 x10E9/L 08/14/2021 11:[address] [facility] Basophils Absolute 0.04 0 - 0.08 x10E9/L 08/14/2021 11:[address] [facility] Immature Granulocytes Absolute 0.03 0.00 - 0.06 x10E9/L 08/14/2021 11:[address] [facility] nRBC Auto 0 /100 WBC 08/14/2021 11:[address] [facility] Blood BLOOD SPECIMEN / Unknown Venipuncture / Unknown 08/14/2021 10:52 AM CONCRETE MASON 08/14/2021 10:52 AM [facility] Jaden Lyons MD LAB - HEMATOLOGY ORD ERABLES [facility] [address] [place], [place] [id number] * (ABNORMAL) COMPREHENSIVE METABOLIC PANEL (08/14/2021 10:52 AM [facility]) Glucose 296(H) 70 - 105 mg/dL 08/14/2021 11:[address] [facility] Sodium 138 136 - 145 mmol/L 08/14/2021 11:[address] [facility] Potassium 4.4 3.5 - 5.1 mmol/L 08/14/2021 11:[address] [facility] Chloride 102 98 - 107 mmol/L 08/14/2021 11:[address] [facility] CO2 26 23 - 31 mmol/L 08/14/2021 11:[address] [facility] Calcium 9.2 8.4 - 10.4 mg/dL 08/14/2021 11:[address] [facility] Anion Gap 10 8 - 18 mmol/L 08/14/2021 11:[address] [facility] BUN 8 7 - 18.7 mg/dL 08/14/2021 11:[address] [facility] Creatinine 0.73 0.57 - 1.11 mg/dL 08/14/2021 11:[address] [facility] Alkaline Phosphatase 68 40 - 150 U/L 08/14/2021 11:[address] [facility] ALT 33 0 - 61 U/L 08/14/2021 11:[address] [facility] AST 15 5 - 34 U/L 08/14/2021 11:[address] [facility] Protein Total 6.6 6.4 - 8.3 gm/dL 08/14/2021 11:[address] [facility] Albumin 4.2 3.5 - 5.2 gm/dL 08/14/2021 11:21 AM CONCRETE MASON [facility] Bilirubin Total 0.3 0.2 - 1.2 mg/dL 08/14/2021 11:21 AM CONCRETE MASON [facility] eGFR by MDRD >60 >60 mL/min/1.7 3m2 08/14/2021 11:21 AM CONCRETE MASON [facility] eGFR by MDRD >60 >60 mL/min/1.7 3m2 08/14/2021 11:21 AM CONCRETE MASON [facility] Blood BLOOD SPECIMEN / Unknown Venipuncture / Unknown 08/14/2021 10:52 AM CONCRETE MASON 08/14/2021 10:52 AM CONCRETE MASON Jaden Lyons MD LAB - CHEMISTRY MELI ARENAS [facility] Organization Address City/State/[facility] Co de Phone Number [facility] [address] [place] [address] documented in this encounter Visit Diagnoses Not on filedocumented in this encounter
--- OUTSIDE RECORDS SUMMARY | 2024-09-06 00:56 | XMS_ITS | Patient Health Summary ---
Author Organization [facility] Address [address] [place] [address] Care Team Providers Care Home Care Attendant Name Role Phone Unavailable Primary Care Provider Unavailabl e Note from [facility],non-owned Affiliates and Associated Physician Practices is amultiple site organization consisting of ambulatory clinics and hospital sitesin [place], [place], [place] and [place]. This disclosure is being madepursuant to the Care Everywhere program and may not contain all information available regarding this patient. Last updated 18.[facility] Social History Tobacco Use Types Packs/Day [...] Quantitative <1.20 mIU/mL 09/05/19 7:42 PM CDT [facility] Blood BLOOD SPECIMEN / Unknown Venipuncture / Unknown 09/04/2021 3:10 PM CDT 09/04/2021 6:51 PM CDT Narrative [facility] - 09/04/2021 7:42 PM CDT hCG [...] Provider Unknown LAB - CHEMISTRY MELI ARENAS [facility] [address] [place] [address] * (ABNORMAL) CBC WITH DIFFERENTIAL (08/14/2021 10:52 AM [facility]) [facility] WBC 9.7 4.4 - 10.7 x10E9/L 08/14/2021 11:[address] [facility] WBC Corrected 08/14/2021 11:[address] [facility] RBC 5.21(H) 3.80 - 5.20 x10E12/L 08/14/2021 11:[address] [facility] Hemoglobin 14.1 12.0 - 15.6 gm/dL 08/14/2021 11:[address] [facility] Hematocrit 43.3 35.9 - 45.5 % 08/14/2021 11:[address] [facility] MCV 83.1 80.7 - 98.3 fl 08/14/2021 11:[address] [facility] MCH 27.1 26.7 - 34.0 pg 08/14/2021 11:[address] [facility] MCHC 32.6 30.8 - 35.9 gm/dL 08/14/2021 11:[address] [facility] Platelet Count 273 153 - 416 x10E9/L 08/14/2021 11:[address] [facility] RDW-CV 12.4 12.1 - 14.9 % 08/14/2021 11:[address] [facility] MPV 10.6 9.4 - 12.9 fl 08/14/2021 11:[address] [facility] Neutrophils % 69.1 44.0 - 73.0 % 08/14/2021 11:[address] [facility] Lymphocytes % 23.0 20.0 - 43.0 % 08/14/2021 11:[address] [facility] Monocytes % 5.4 5.0 - 13.0 % 08/14/2021 11:[address] [facility] Eosinophils % 1.8 0.0 - 6.0 % 08/14/2021 11:[address] [facility] Basophils % 0.4 0.0 - 2.0 % 08/14/2021 11:[address] [facility] Immature Granulocytes 0.3 0 - 1 % 08/14/2021 11:[address] [facility] Neutrophil Absolute 6.72 2.01 - 7.14 x10E9/L 08/14/2021 11:[address] [facility] Lymphocytes Absolute 2.23 1.07 - 3.94 x10E9/L 08/14/2021 11:[address] [facility] Monocytes Absolute 0.52 0.26 - 1.07 x10E9/L 08/14/2021 11:[address] [facility] Eosinophils Absolute 0.17 0 - 0.47 x10E9/L 08/14/2021 11:[address] [facility] Basophils Absolute 0.04 0 - 0.08 x10E9/L 08/14/2021 11:[address] [facility] Immature Granulocytes Absolute 0.03 0.00 - 0.06 x10E9/L 08/14/2021 11:[address] [facility] nRBC Auto 0 /100 WBC 08/14/2021 11:[address] [facility] Blood BLOOD SPECIMEN / Unknown Venipuncture / Unknown 08/14/2021 10:52 AM [facility] 08/14/2021 10:52 AM [facility] Jaden Lyons MD LAB - HEMATOLOGY ORD ERABLES [facility] [address] [place], [place] [id number] * (ABNORMAL) COMPREHENSIVE METABOLIC PANEL (08/14/2021 10:52 AM [facility]) [facility] Signature Glucose 296(H) 70 - 105 mg/dL 08/14/2021 11:[address] [facility] Sodium 138 136 - 145 mmol/L 08/14/2021 11:[address] [facility] Potassium 4.4 3.5 - 5.1 mmol/L 08/14/2021 11:[address] [facility] Chloride 102 98 - 107 mmol/L 08/14/2021 11:[address] [facility] CO2 26 23 - 31 mmol/L 08/14/2021 11:[address] [facility] Calcium 9.2 8.4 - 10.4 mg/dL 08/14/2021 11:[address] [facility] Anion Gap 10 8 - 18 mmol/L 08/14/2021 11:[address] [facility] BUN 8 7 - 18.7 mg/dL 08/14/2021 11:[address] [facility] Creatinine 0.73 0.57 - 1.11 mg/dL 08/14/2021 11:[address] [facility] Alkaline Phosphatase 68 40 - 150 U/L 08/14/2021 11:[address] [facility] ALT 33 0 - 61 U/L 08/14/2021 11:[address] [facility] AST 15 5 - 34 U/L 08/14/2021 11:[address] [facility] Protein Total 6.6 6.4 - 8.3 gm/dL 08/14/2021 11:[address] [facility] Albumin 4.2 3.5 - 5.2 gm/dL 08/14/2021 11:[address] [facility] Bilirubin Total 0.3 0.2 - 1.2 mg/dL 08/14/2021 11:[address] [facility] eGFR by MDRD >60 >60 mL/min/1.7 3m2 08/14/2021 11:[address] [facility] eGFR by MDRD >60 >60 mL/min/1.7 3m2 08/14/2021 11:[address] [facility] Blood BLOOD SPECIMEN / Unknown Venipuncture / Unknown 08/14/2021 10:52 AM GYNECOLOGIST 08/14/2021 10:52 AM [facility] Jaden Lyons MD LAB - CHEMISTRY MELI ARENAS [facility] [address] [place] [address]
--- OUTSIDE RECORDS SUMMARY | 2024-09-06 00:56 | XMS_ITS | Referral Summary ---
Author Organization [facility] Address [address] [place] [address] Care Team Providers Care Wholesaler Name Role Phone Unavailable Primary Care Provider Unavailabl e Source Comments [facility],non-owned Affiliates and Associated Physician Practices is amultiple site organization consisting of ambulatory clinics and hospital sitesin [place], [place], [place] and [place]. This disclosure is being madepursuant to the Care Everywhere program and may not contain all information available regarding this patient. Last updated 18.[facility] [employer] [place] Social History Tobacco Use Types Packs/Day Years Used Date Smoking Tobacco: Never Assessed Sex and Gender Information Value Date Recorded Sex Assigned at Not on file Gender Identity Not on file Sexual Orientation Not on file Plan of Treatment Not on file
--- OUTSIDE RECORDS SUMMARY | 2024-09-06 00:56 | XMS_ITS | Clinical Summary ---
Author Organization 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 Name Role Phone Unavailable Primary Care Provider Unavailabl e Encounters Date Type Department Care Team Description 08/28/2024 External Device Data [facility] ABSTRACTION Provider, Abstract 08/27/2024 External Device Data [facility] ABSTRACTION Provider, Abstract 08/25/2024 External Device Data [facility] ABSTRACTION Provider, Abstract 08/23/2024 9:29 AM DROP WIRE ALINER - 08/23/2024 11:59 PM DROP WIRE ALINER Hospital Encounter [facility] [address] [address] [place] [phone] Renetta Bee MD Discharge Disposition: Home or Self Care 08/23/2024 8:54 AM DROP WIRE ALINER - 08/23/2024 11:59 PM DROP WIRE ALINER Hospital Encounter [facility] [address] [place] [phone] Jorge Shine MD Discharge Disposition: Home or Self Care 08/10/2024 External Device Data ST[facility] ABSTRACTION Provider, Abstract 07/26/2024 7:58 AM DROP WIRE ALINER - 07/26/2024 11:59 PM DROP WIRE ALINER Hospital Encounter [facility] [address] [place] [phone] Jorge Shine MD Discharge Disposition: Home or Self Care 07/20/2024 External Device Data [facility] ABSTRACTION Provider, Abstract 07/14/2024 External Device Data [facility] ABSTRACTION Provider, Abstract 07/14/2024 External Device Data ST[facility] ABSTRACTION Provider, Abstract 06/29/2024 7:10 AM DROP WIRE ALINER - 06/29/2024 11:59 PM DROP WIRE ALINER Hospital Encounter [facility] [place] [address] [place] [phone] Alka Jones MD Discharge Disposition: Home or Self Care from Last 3 Months Social History Tobacco Use Types Packs/Day Years Used Date Smoking Tobacco: Never Assessed Comments Unknown Sex and Gender Information Value Date Recorded Sex Assigned at Not on file Legal Sex Female 11:03 AM DROP WIRE ALINER Gender Identity Not on file Sexual Orientation [...] US MONITORING NST Routine 08/23/2024 10:04 AM DROP WIRE ALINER Diabetes mellitus high risk Asthma complicating , antepartum Body mass index (BMI) of 40.0 to 44.9 in adult ([facility]) History of US OB FOLLOW UP PER FETUS Routine 08/23/2024 9:19 AM DROP WIRE ALINER Diabetes mellitus high risk Asthma complicating , antepartum Body mass index (BMI) of 40.0 to 44.9 in adult ([facility]) History of US OB FOLLOW UP PER FETUS Routine 07/26/2024 8:27 AM DROP WIRE ALINER Type 2 diabetes mellitus with other specified complication, unspecified whether alf insulin use ([facility]) US OB FOLLOW UP PER FETUS Routine 06/29/2024 7:29 AM DROP WIRE ALINER Type 2 diabetes mellitus with other specified complication, unspecified whether alf insulin use ([facility]) from Last 3 Months Results * US MONITORING NST (08/23/2024 10:04 AM DROP WIRE ALINER) Anatomical Region Laterality Modality Ultrasound 08/23/2024 9:42 AM DROP WIRE ALINER [facility] 08/23/2024 9:55 AM DROP WIRE ALINER CHRISTIE NST ----- Pat. Name: VERA SANTILLAN Study Date: 08/23/2024 9:42am Pat. NO: [id number] Referring MD: ALMA TONEY MD Site: [place] [employer] Dusting: : 1995 Age: 28 ----- INDICATION ----- [...] Z36.2: Encounter for other screening follow-up Procedures 54716: NST/ monitoring HISTORY ----- OB History 4. [...] Pat. Name:BILL SANTILLANMariam Date:08/23/2024 9:42am Pat. NO: [id number] :ALMA TONEY MD Site:[facility]: :1995Age:28 ----- INDICATION [...] inpregnancy Z36.2: Encounter for other screeningfollow-up Procedures [id number]: NST/ monitoring HISTORY ----- OB History 4. Para 1 T1A2L1 MATERNAL ASSESSMENT ----- Physical Exam Weight 88 kg. Initial weight 89 kg, 196 lb. BMI36.66 kg/m . Initial BMI 37.03 kg/m . Weight gain -1 kg, -2 lb. Blood pressure 109/67 mmHg. Heart rate 85bpm METHOD ----- EFM ----- Garcia . Number of fetuses: 1 DATING ----- GA by prior [id number] w + 0 d TIMMY by prior [...] FOLLOW UP PER FETUS (08/23/2024 9:19 AM DROP WIRE ALINER) Only the most recent of3 resultswithin the time period is included. Anatomical Region Laterality Modality Pelvis Ultrasound 08/23/2024 8:53 AM DROP WIRE ALINER Narrative 08/23/2024 9:35 AM DROP WIRE ALINER STL FOLLOW UP ----- Pat. Name: VERA SANTILLAN Study Date: 08/23/2024 8:53am Pat. NO: [id number] Referring MD: ALMA TONEY MD Site: [place] [facility] [employer]: Kym Early RDMS : 1995 Age: 28 [...] Z36.2: Encounter for other screening follow-up Procedures 59705: Ultrasound, uterus, real time with image documentation, [...] 6 lb 10 oz EFW by Hadlock ([id number]) Head / Face / Neck Biometry: Set Up Mechanic Coil Winding Machines 4.1 mm Extremities / Bony Struc Biometry: [...] and date of were verified by the numerical analysis group manager prior to the exam IMPRESSION ----- Garcia [...] Pat. Name:Vazquez SANTILLAN Date:08/23/2024 8:53am Pat. NO: [id number] MD:ALMA TONEY [facility]Kym Early RDMS :1995Age:28 ----- INDICATION ----- [...] inpregnancy Z36.2: Encounter for other screeningfollow-up Procedures 24017: Ultrasound, uterus, real time withimage documentation, follow up, transabdominal approach per fetus HISTORY ----- OB History 4. Para 1 T1A2L1 MATERNAL ASSESSMENT ----- Physical Exam Initial weight 89 kg, 196 lb. Initial BMI 37.03kg/m METHOD ----- Transabdominal ultrasound examination ----- Garcia . Number of fetuses: 1 DATING ----- GA by prior [id number] w + 0 d TIMMY by prior [...] 6 lb 10 oz EFW by Hadlock ([id number]) Head / Face / Neck Biometry: Set Up Mechanic Coil Winding Machines 4.1mm Extremities / Bony Struc Biometry: FL [...] and date of were verified by the numerical analysis group manager prior tothe exam IMPRESSION ----- Garcia @ [...] Last 3 Months Insurance ADMINISTRATIVE CONCEPTS [employer]
--- OUTSIDE RECORDS SUMMARY | 2024-09-06 00:56 | XMS_ITS | Data Portability ---
Author Organization [facility] MASOU[facility]rover Address [address] [facility] [place] [address] Care Team Providers Care Strategies Analyst Name Role Phone TOM DELGADO Primary Care Provider Assessment No assessment recorded. Plan of Treatment Reminders Order Date Submit Date Provider Last Modified By Organization Details Last Modified Time Details Appointments None recorded. Lab PPD (purified protein derivative) , skin test 2023 024 [facility] In-Office Order, Internal Use Only DO Not Attach Compendium DO Not Attach Compendium, Do Not Delete/merge, [id number] 11:52:40 HbA1c (hemoglobin A1c), blood 2021 022 [facility] In-Office Order, Internal Use Only DO Not Attach Compendium DO Not Attach Compendium, Do Not Delete/merge, [id number] 10:58:31 lipid panel, serum 2021 022 [facility], [address] [facility] [address], [address], 19:07:50 HbA1c (hemoglobin A1c), blood 2021 022 [facility] In-Office Order, Internal Use Only DO Not Attach Compendium DO Not Attach Compendium, Do Not Delete/merge, [id number] 2 17:23:31 CMP, serum or plasma 2021 022 [facility], [address] [facility] [address], [place], [address], 2 19:07:49 CBC 2021 022 [facility] [address] [facility] [address], [place], [address], 2 19:07:49 drug screen, urine 2021 [facility], [address] [facility] [address], [place], [address], 2 10:13:13 Referral None recorded. Procedures None recorded. Surgeries None recorded. Imaging None recorded. Medication Orders sulfamethox azole 800 mg-trimetho prim 160 mg tablet 2023 024 [id number] [address] [place], [address], 4 15:34:56 metformin 500 mg tablet 2021 022 [facility] [address] [place], [address], 4 11:12:45 ProAir HFA 90 mcg/actuati on aerosol inhaler 2021 022 [facility] [address] [place], [address], 2 10:46:38 diazepam 5 mg tablet 2021 022 [facility] [address] [place], [address], 4 11:12:23 metformin 500 mg tablet 2021 022 [facility] [address] [place], [address], 4 11:12:45 albuterol sulfate 2.5 mg/3 mL (0.083 %) solution for nebulizatio n 2021 022 [facility] [address] [place], [address], 15:53:02 Patient TargetsNo targets recorded. Patient Instructions Encounter Date Encounter Id Patient Instructions Last Modified By Organization Details Last Modified Time 07/18/2021 [id number] anxiety disorder : care instructions jnanney Not available 07/18/2021 15:52:58 learning about type 2 diabetes jnanney Not available 07/18/2021 15:40:32 type 2 diabetes: care instructions jnanney Not available 07/18/2021 15:40:32 body mass index: care instructions jnanney Not available 07/18/2021 15:52:59 learning about healthy weight jnanney Not available 07/18/2021 15:52:58 07/25/2021 [id number] learning about type 2 diabetes jnanney Not available 07/25/2021 12:55:44 type 2 diabetes: care instructions jnanney Not available 07/25/2021 12:55:44 will redraw labs in 3 months jnanney Not available 07/25/2021 12:54:16 10/15/2021 [id number] learning about type 2 diabetes jnanney Not available 10/15/2021 10:45:19 type 2 diabetes: care instructions jnanney Not available 10/15/2021 10:45:19 09/08/2023 [id number] A healthy lifestyle: care instructions jnanney Not available 09/08/2023 11:32:56 learning about type 2 diabetes jnanney Not available 09/08/2023 11:32:56 type 2 diabetes: care instructions jnanney Not available 09/08/2023 11:32:56 09/19/2023 [id number] A healthy lifestyle: care instructions jnanney Not available 09/19/2023 15:34:54 Reason for Referral None Reported. Results Created Date Observation Date Name Description Value Unit Range Abnormal Flag Note LastModifiedBy Organization Detail LastModifiedTime 07/18/19 22 07/18/2021 HbA1c (hemo globi n A1c), blood HbA1c 9.3 Not Available In-Office Order Internal Use Only DO Not Attach Compendium DO Not Attach Compendium, Do Not Delete/merge, [id number] 07/18/2021 15:35:58 07/19/19 22 07/21/2021 COMP. METAB OLIC PANEL (14) glucose 301 mg/dL 65-99 above high normal Not Available [facility] ([facility]) [address] [place], [address], 07/21/2021 19:07:48 07/19/19 22 07/21/2021 COMP. METAB OLIC PANEL (14) BUN 10 mg/dL 6-20 Not Available [facility] ([facility]) [address] [place], [address], 07/21/2021 19:07:48 07/19/19 22 07/21/2021 COMP. METAB OLIC PANEL (14) creatinine 0.67 mg/dL 0.57-1 .00 Not Available [facility] ([facility]) [address] [place], [address], 07/21/2021 19:07:48 07/19/19 22 07/21/2021 COMP. METAB OLIC PANEL (14) eGFR if nonafricn AM 122 mL/mi n/1.7 3 >59 Not Available [facility] ([facility]) [address] [place], [address], 07/21/2021 19:07:48 07/19/19 22 07/21/2021 COMP. METAB [...] a race varia ble. Not Available [facility] ([facility]) [address] [place], [address], 07/21/2021 19:07:48 07/19/19 22 07/21/2021 COMP. METAB OLIC PANEL (14) BUN/creatini ne ratio 15 9-23 Not Available [facility] ([facility]) [address] [facility] [place], [address], 07/21/2021 19:07:48 07/19/19 22 07/21/2021 COMP. METAB OLIC PANEL (14) sodium 143 mmol/ L 134-14 4 Not Available [facility] ([facility]) [address] [facility] [place], [address], 07/21/2021 19:07:48 07/19/19 22 07/21/2021 COMP. METAB OLIC PANEL (14) potassium 4.7 mmol/ L 3.5-5. 2 Not Available [facility] ([facility]) [address] [facility] [place], [address], 07/21/2021 19:07:48 07/19/19 22 07/21/2021 COMP. METAB OLIC PANEL (14) chloride 101 mmol/ L 96-106 Not Available [facility] ([facility]) [address] [facility] [place], [address], 07/21/2021 19:07:48 07/19/19 22 07/21/2021 COMP. METAB OLIC PANEL (14) carbon dioxide, total 26 mmol/ L 20-29 Not Available [facility] ([facility]) [address] [facility] [place], [address], 07/21/2021 19:07:48 07/19/19 22 07/21/2021 COMP. METAB OLIC PANEL (14) calcium 10.3 mg/dL 8.7-10 .2 above high normal Not Available [facility] ([facility]) [address] [facility] [place], [address], 07/21/2021 19:07:48 07/19/19 22 07/21/2021 COMP. METAB OLIC PANEL (14) protein, total 7.4 g/dL 6.0-8. 5 Not Available [facility] ([facility]) [address] [facility] [place], [address], 07/21/2021 19:07:48 07/19/19 22 07/21/2021 COMP. METAB OLIC PANEL (14) albumin 4.8 g/dL 3.9-5. 0 Not Available [facility] ([facility]) [address] [facility] [place], [address], 07/21/2021 19:07:48 07/19/19 22 07/21/2021 COMP. METAB OLIC PANEL (14) globulin, total 2.6 g/dL 1.5-4. 5 Not Available [facility] ([facility]) [address] [facility] [place], [address], 07/21/2021 19:07:48 07/19/19 22 07/21/2021 COMP. METAB OLIC PANEL (14) A/G ratio 1.8 1.2-2. 2 Not Available [facility] ([facility]) [address] [facility] [place], [address], 07/21/2021 19:07:48 07/19/19 22 07/21/2021 COMP. METAB OLIC PANEL (14) bilirubin, total <0.2 mg/dL 0.0-1. 2 Not Available [facility] ([facility]) [address] [facility] [place], [address], 07/21/2021 19:07:48 07/19/19 22 07/21/2021 COMP. METAB OLIC PANEL (14) alkaline phosphatase 94 IU/L 44-121 Not Available [facility] ([facility]) [address] [facility] [place], [address], 07/21/2021 19:07:48 07/19/19 22 07/21/2021 COMP. METAB OLIC PANEL (14) AST (SGOT) 18 IU/L 0-40 Not Available [facility] ([facility]) [address] [facility] [place], [address], 07/21/2021 19:07:48 07/19/19 22 07/21/2021 COMP. METAB OLIC PANEL (14) ALT (SGPT) 33 IU/L 0-32 above high normal Not Available [facility] ([facility]) [address] [facility], [place], [address], 07/21/2021 19:07:48 07/19/19 22 07/21/2021 CBC, PLATE LET, NO DIFFE RENTI AL WBC 9.7 x10e3 /uL 3.4-10 .8 Not Available [facility] ([facility]) [address] [facility], [place], [address], 07/21/2021 19:07:49 07/19/19 22 07/21/2021 CBC, PLATE LET, NO DIFFE RENTI AL RBC 5.58 x10e6 /uL 3.77-5 .28 above high normal Not Available [facility] ([facility]) [address] [facility], [place], [address], 07/21/2021 19:07:49 07/19/1907/21/2021 CBC, PLATE LET, NO DIFFE RENTI AL hemoglobin 15.4 g/dL 11.1-1 5.9 Not Available [facility] ([facility]) [address] [place], [address], 07/21/2021 19:07:49 07/19/1907/21/2021 CBC, PLATE LET, NO DIFFE RENTI AL hematocrit 45.7 % 34.0-4 6.6 Not Available [facility] ([facility]) [address] [place], [address], 07/21/2021 19:07:49 07/19/19 22 07/21/2021 CBC, PLATE LET, NO DIFFE RENTI AL MCV 82 fL 79-97 Not Available [facility] ([facility]) [address] [place], [address], 07/21/2021 19:07:49 07/19/19 22 07/21/2021 CBC, PLATE LET, NO DIFFE RENTI AL MCH 27.6 pg 26.6-3 3.0 Not Available [facility] ([facility]) [address] [facility], [place], [address], 07/21/2021 19:07:49 07/19/19 22 07/21/2021 CBC, PLATE LET, NO DIFFE RENTI AL MCHC 33.7 g/dL 31.5-3 5.7 Not Available [facility] ([facility]) [address] [facility] [place], [address], 07/21/2021 19:07:49 07/19/19 22 07/21/2021 CBC, PLATE LET, NO DIFFE RENTI AL RDW 12.3 % 11.7-1 5.4 Not Available [facility] ([facility]) [address] [facility], [place], [address], 07/21/2021 19:07:49 07/19/19 22 07/21/2021 CBC, PLATE LET, NO DIFFE RENTI AL platelets 260 x10e3 /uL 150-45 0 Not Available [facility] ([facility]) [address] [facility], [place], [address], 07/21/2021 19:07:49 07/19/1907/21/2021 CBC, PLATE LET, NO DIFFE RENTI AL NRBC RETAIL ADVERTISING ACCOUNT EXECUTIVE Not Available [facility] ([facility]) [address] [facility] [place], [address], 07/21/2021 19:07:49 07/19/19 22 07/21/2021 LIPID PANEL cholesterol, total 217 mg/dL 100-19 9 above high normal Not Available [facility] ([facility]) [address] [place], [address], 07/21/2021 19:07:50 07/19/19 22 07/21/2021 LIPID PANEL triglyceride s 203 mg/dL 0-149 above high normal Not Available [facility] ([facility]) [address] [place], [address], 07/21/2021 19:07:50 07/19/19 22 07/21/2021 LIPID PANEL HDL cholesterol 48 mg/dL >39 Not Available [facility] ([facility]) [address] [place], [address], 07/21/2021 19:07:50 07/19/19 22 07/21/2021 LIPID PANEL VLDL cholesterol ronel 36 mg/dL 5-40 Not Available [facility] ([facility]) [address] [place], [address], 07/21/2021 19:07:50 07/19/19 22 07/21/2021 LIPID PANEL LDL chol calc ([facility]) 133 mg/dL 0-99 above high normal Not Available [facility] ([facility]) [address] [place], [address], 07/21/2021 19:07:50 07/19/19 22 07/21/2021 LIPID PANEL comment: RETAIL ADVERTISING ACCOUNT EXECUTIVE Not Available [facility] ([facility]) [address] [place], [address], 07/21/2021 19:07:50 07/19/1907/21/2021 CARDI OVASC ULAR REPOR [...] t is avail able. Not Available [facility] ([facility]) [address] [place], [address], 07/21/2021 19:07:51 07/19/19 22 07/21/2021 CARDI JOSE BARNHART REPOR T pdf . Not Available [facility] ([facility]) [address] [facility], [place], [address], 07/21/2021 19:07:51 07/19/19 22 07/31/2021 COMPL IANCE [...] ===== ===== === Not Available [facility] [address] [place] [address], [place], [address], 07/31/2021 10:13:13 07/19/19 22 07/31/2021 COMPL IANCE DRUG SHERYL SIS, UR pdf . Not Available [facility] [address], [place], [address], 07/31/2021 10:13:13 10/16/19 22 10/15/2021 HbA1c (hemo globi n A1c), blood HbA1c 9.9 Not Available In-Office Order Internal Use Only DO Not Attach Compendium DO Not Attach Compendium, Do Not Delete/merge, [id number] 10/15/2021 10:44:56 09/10/19 24 09/10/2023 PPD (vanessa fied prote in deriv ative ), skin test Result Negati ve Not Available In-Office Order Internal Use Only DO Not Attach Compendium DO Not Attach Compendium, Do Not Delete/merge, [id number] 09/08/2023 11:31:15 01/23/20 24 01/23/2024 US, obste tric No observ ation [facility] ed[facility] [address], [place], [address], 01/23/2024 14:30:51 08/13/19 25 08/13/2024 US, doppl er, echoc ardio gram, follo w-up No observ ation [facility] ed. [facility] [address], [place], [address], 08/13/2024 14:29:40 Result Notes None recorded. Problems Name Problem SNOMED Code Status Onset Date Resolution Date Notes Provider Name and Address Organization Details Recorded Time Irregular periods 35054993 Active Sun[facility]a Concepcion [facility] Attn: Kamaljtiflaquita g,[address], [place], [address], [facility] 6 12:42:18 Amenorrhea 02626636 Active Sunitha Concepcion [facility] Attn: Accountin g,[address], [place], [address], [facility] 6 12:42:18 Problem Notes None recorded. Procedures Surgical History Date Name Laterality Status Provider Name and Address Organization Details Recorded Time 06/23/2020 Date of Last Pap Smear completed Yvette Stewart [place] [facility] 08/31/2020 10:40:16 Imaging Results Imaging Date Name Status LastModified by Organiz ation Details LastModified Time 01/23/2024 US, obstetric completed [facility] [address], [place], [address], 01/23/2024 14:30:51 08/13/2024 US, doppler, echocardiogram , follow-up completed [facility] [address], [place], [address], 08/13/2024 14:29:40 Procedure Notes None recorded. Medical Equipment None Reported. Allergies Allergen ID Allergen Name Allergen Category Reaction Reaction Severity Criticality Documentation Date Start Date Code Code System Note Provider Name and Address Organization Details Recorded Time 74059 Product containin g penicilli n (product) medicatio n hives Not available Not available 03/06/2016 93142 8001 SNOMED Not Available Not Available Not [...] Not Available Not Available Sprintec (28) 0.25 mg-0.035 mg tablet Take 1 tablet every day [...] Updated DateTime 2 154.94 cm 37.2 kg/m2 85448.7 g 97.7 [degF] 98 % 98 % [...] % 98 % 93 /min 37.5 kg/m2 14494.7 3 g 120 mm[Hg] 92 mm[Hg] Yvette doyle MA [facility] 2 10:27:03 Date Recorded Body height Body mass index (BMI) Body weight Oxygen saturation Oxygen saturation in Arterial blood by Pulse oximetry Heart rate Systolic blood pressure Diastolic blood pressure Provider Name and Address Organization Details Last Updated DateTime 4 154.94 cm 38 kg/m2 50821.0 7 g 100 % 100 % 79 /min 110 mm[Hg] 70 mm[Hg] Nidhi Pitts MA [facility] 4 11:16:28 Date Recorded Body height Body mass index (BMI) Body weight Heart rate Oxygen saturation Oxygen saturation in Arterial blood by Pulse oximetry Systolic blood pressure Diastolic blood pressure Provider Name and Address Organization Details Last Updated DateTime 4 154.94 cm 38 kg/m2 86972.0 7 g 125 /min 99 % 99 % 128 mm[Hg] 92 mm[Hg] Nidhi Pitts MA [facility] 4 15:26:44 Social History Question Answer Notes LastModified by Smileboxat ion Details LastModified Time Tobacco Smoking Status Former Smoker Vandana Fraga MA [facility], [place] - [facility] 05/12/2020 11:49:39 What Is Your Level [...] available 09/08/2019 If Patient Spent Time In [facility] - Does The Patient Live In [facility]? No Information not available 09/08/2019 In The 14 Days Before Symptom Onset, Have You Had Close Contact With A Person Who Is Under Investigation For COVID-19 While That Person Was Ill? No Information not available 09/08/2019 In The 14 Days Before Symptom Onset, Did The Patient Spend Time In [facility]? No Information not available 09/08/2019 Have [...] Anxious, Or Unable To Sleep At Night)? [id number] Information not available 08/31/2020 Do You Use [...] Response Coronary Artery Disease N Other N Atrial Fibrillation N High Blood Pressure N Depression N COPD N Blood Clots N Anxiety Disorder N Muscle, Joint, or Bone Problems N Acid Reflux (GERD) N Cancer N Stroke N ADHD N High Cholesterol N Liver Disease N Schizophrenia N Headaches N Kidney or Bladder Problems N Thyroid Problems N GI Problems N Eating Disorder N Skin Problems N Anemia N Heart Attack (CT) N Diabetes N Seizures/Epilepsy N Asthma Y Allergies N Substance Abuse N Hepatitis N Osteoporosis N Heart Failure N Gynecological [...] MMR 2 completed Vandana Fraga MA null, [facility] 07/18/2021 16:37:22 tetanus toxoid, unspecified formulation 5 completed Agueda Connors null, [facility] 05/07/2016 14:08:19 Past Encounters Encounter ID Performer Location Encounter Start Date Encounter Closed Date Diagnosis/Indication Diagnosis SNOMED-CT Code Diagnosis ICD10 Code Diagnosis Note [id number] Sunitha Concepcion [facility] Constantin Phillips ([place] [address]) [address] [facility] [place] [address] 03/06/2016 11:52:53 03/06/2016 12:48:24 Gynecologic examination 19308014 Z01.419 Amenorrhea 82394103 N91. 2 Irregular periods 714975 07 N92.6 [id number] Renetta Mead MD [facility] (Adult Med) [address] [facility] [address] [place], [place] [address] [address] 05/07/2016 13:53:21 05/07/2016 14:42:10 Adult health examination 453294838 Z00.00 healthy diet and exercise discussed with pt Obesity 587104215 E66.9 TSH-ok ( done by [employer]) [id number] Sunitha Concepcion [facility] Constantin Phillips ([place] [address]) [address] [facility] [place] [address] 05/20/2016 16:44:31 05/21/2016 08:40:16 Amenorrhea 05881055 N91.2 [id number] Sunitha Concepcion [facility] [place] ([place] [address]) [address] [facility] [place] [address] 09/30/2016 16:00:17 10/01/2016 08:57:30 Primary infertility 399033848 N97.9 [id number] MD Constantin Figueroa ([place] [address]) [address] [facility] [place] [address] 10/03/2016 09:12:26 10/03/2016 14:45:34 Fertility care 094615364 Z31.84 If referral is not accepted will use letrozole or clomid for ovulation induction with the use of ovulation detection kit. [id number] ANTWON Cruz [facility] [address] [place] [address] 11/01/2016 11:13:13 11/01/2016 15:31:05 Hyperglycemia 61811387 R73.09 Morbid obesity 315836102 E66.01 [id number] Tom Delgado [facility] [address] [place] [address] 11/06/2016 10:10:01 11/06/2016 12:01:01 Type 2 diabetes mellitus 63499949 E11.9 [id number] Charisse Sanz, [facility] [address] [place] [address] 07/09/2017 13:44:41 07/16/2017 14:46:44 Irregular periods 87619698 N92.6 [id number] Rebecca Gardner MA [facility] [address] [place] [address] 10/15/2017 17:50:18 10/15/2017 19:31:31 Type 2 diabetes mellitus 19577054 E11.9 [id number] Tom Delgado PA-[facility] [address] [place] [address] 12/10/2018 10:49:07 12/10/2018 12:09:52 Type 2 diabetes mellitus without complication 537233143 E11.9 Type 2 beau betes mellitus 74117588 E11.9 [id number] Tom Delgado PA-[facility] [address] [place] [address] 02/16/2019 11:00:50 02/16/2019 12:30:26 Diabetes mellitus 00653549 E11.9 Type 2 beau betes mellitus 92265031 E11.9 Generalize d anxiety disorder 35919489 F41.1 [id number] Tom Delgado PA-C [facility] [address] [place] [address] 05/14/2019 10:02:49 05/14/2019 12:37:22 Body mass index 30+ - obesity 269289593 Z68.37 Type 2 beau betes mellitus 77975585 E11.9 Generalize d anxiety disorder 66250438 F41.1 Acute bronchitis 2976004 2 J20.9 Atopic dermatitis 271199 01 L20.89 [id number] [facility] [address] [facility] [place] [address] 05/19/2019 09:24:50 05/19/2019 15:26:49 Gynecologic examination 30982564 Z01.419 1. Counseled regarding prevention of STD's [...] year or sooner if needed. Genital warts 023889712 A63.0 Pt given instructio ns of rx for wart removal. Pt verbalized understand ing. Will call office if she would like removal scheduled. Venereal d isease screening 922187779 Z11.3 1. STD testing done per pt request 2. Educated pt on STD prevention , Condom use 3. Pt verbalized understand ing 4. Will follow up pending lab results, as needed or at next annual Trying to conceive 13246 9001 Z31.9 Pt educated on using tracking apps for ovulation as well as using ovulation kits otc. Pt educated on best time during month to ttc also the use of vitamins. [id number] Charisse Sanz [facility] 14 OB [address] [facility] [place] [address] 05/31/2019 15:16:46 06/01/2019 12:20:26 At increased risk of urinary tract infection 266562798 Z91.89 1. Will monitor as dip was negative. 2. Pt instructed to increase fluids, decrease soda, sugary beverages and caffeinate d beverages. 3. To call office if symptoms worsen or do not improve changes. [id number] ANTWON Cruz [address] [place] [address] 09/08/2019 16:13:04 09/08/2019 17:14:03 Abscess of skin of abdomen 7644110084 9449959 L02.211 Type 2 beau betes mellitus 93007372 E11.9 [id number] ANTWON Cruz [address] [place] [address] 09/13/2019 10:06:38 09/13/2019 11:52:36 Type 2 diabetes mellitus 45623993 E11.9 [id number] ANTWON Cruz [facility] [address] [place] [address] 11/08/2019 11:05:57 11/09/2019 09:01:38 Generalized anxiety disorder 19799561 F41.1 [id number] ANTWON Cruz [address] [place] [address] 01/18/2020 09:57:19 01/18/2020 12:55:20 Viral gastroenteritis 027069280 A08.39 Type 2 beau betes mellitus 80097456 E11.9 [id number] Tom Delgado PA-[facility] [address] [place] [address] 05/12/2020 09:32:09 05/12/2020 12:22:27 Viral gastroenteritis 684529686 A08.39 [id number] ANTWON Cruz [facility] [address] [place] [address] 08/31/2020 10:31:17 09/01/2020 08:14:28 Uncontrolled type 2 diabetes mellitus 656435097 E11.65 Type 2 beau betes mellitus 48646935 E11.9 Moderate p ersistent asthma 313337107 J45.40 Cellulitis of abdominal wall 68969225 L03.858 [id number] ANTWON Cruz [address] [place] [address] 07/18/2021 15:09:15 07/18/2021 16:12:12 Type 2 diabetes mellitus 25848761 E11.9 Active or passive immunization 579362068 Z23 Body mass index 30+ - obesity 565357605 Z68.37 Generalize d anxiety disorder 60357292 F41.1 Long-term drug therapy 538091481 Z79.366 [id number] ANTWON Cruz [address] [place] [address] 07/25/2021 09:03:38 07/26/2021 10:22:02 Type 2 diabetes mellitus 10275620 E11.9 [id number] Vandana Fraga MA [facility] [address] [place] [address] 10/15/2021 10:16:31 10/15/2021 11:29:55 Type 2 diabetes mellitus 62940104 E11.9 Mild inter mittent asthma 431225966 J45.20 [id number] Tom Delgado PA-C [facility] [address] [place] [address] 09/08/2023 11:07:19 09/12/2023 11:40:28 Adult health examination 520985212 Z00.00 Overweight 698371155 E66 .3 Type 2 beau betes mellitus 61180674 E11.9 [id number] Tom Delgado PA-[facility] [address] [place] [address] 09/19/2023 15:09:49 09/23/2023 10:06:55 Dog bite of forearm 080200755 S51.851A Overweight 135013855 E66 .3 Health Concerns Section Related Observation LastModified by Organization Detai ls LastModified Time None Recorded Concern Status LastModified by Organization Details LastModified Time None Recorded Advance Directives Directive None Recorded Payers Encounter Date Sequence Insurance Name Policy Number Policy Dey Covered Member ID Dey Member ID Guarantor Name 07/18/2021 1 [place] [id number] Harsh Pack [id number] [facility] 07/18/2021 2 [facility] (MEDICAID HMO) [id number] [facility] [id number] [facility] 07/25/2021 1 [place] [id number] Harsh Sherri Pack [id number] [facility] 07/25/2021 2 [facility] (MEDICAID HMO) [id number] [facility] [id number] [facility] 10/15/2021 1 [place] [id number] Harsh Sherri Pack [id number] [facility] 09/08/2023 1 [place] [id number] Harsh Pack [id number] Vera Pack 09/19/2023 1 [place] [id number] Harsh Pack [id number] Vera Pack Notes Date Note Type Note [...] 3 years. Tom Delgado PA-C Attn: Accounting,[address] [place], [address], [facility] 07/18/2021 15:57:06 07/25/2021 text/html go over labs...a1c remains high...has resumed meds since last visit...sugars are improving down to 160s from 300s....getting more sleep...eating better...overall feeling much better Tom Delgado PA-C Attn: Accounting,[address] [place], [address], [facility] 07/25/2021 12:56:17 10/15/2021 text/html Vera Pack is [...] bowel or bladder changes. Vandana Fraga MA [facility], [place] - [facility] 10/15/2021 11:50:12 09/08/2023 text/html adult phys for daycare work...blood sugar was out of whack due to ...now coming down..has endo Tom Delgado PA-C Attn: Accounting,[address] [facility], [place], [address], [facility] 09/08/2023 11:33:14 09/19/2023 text/html got bitten by her own dog at home after being startled...has had shots... Tom Delgado PA-C Attn: Accounting,[address] [facility], [place], [address], [facility] 09/19/2023 15:35:51 OBGyn Episode No OBEpisode recorded.
--- OUTSIDE RECORDS SUMMARY | 2024-09-06 00:56 | XMS_ITS | Encounter Summary ---
Author Organization [facility] Address [address] [place] [address] Care Team Providers Care Certified Recreational Therapist Name Role Phone Unavailable Primary Care Provider Unavailabl e Encounter Details Date Type Department Care Team (Late st Contact Info) Description 09/04/2021 Lab Requisition [facility] [address] [place] [address] Unknown, Provider Social History Tobacco Use Types [...] Quantitative <1.20 mIU/mL 09/05/19 7:42 PM CDT [facility] Blood BLOOD SPECIMEN / Unknown Venipuncture / Unknown 09/04/2021 3:10 PM CDT 09/04/2021 6:51 PM CDT Narrative [facility] - 09/04/2021 7:42 [...] Provider Unknown LAB - [facility]STRY [facility] Organization Address City/State/[facility] Co de Phone Number [facility] [address], [place] [id number] documented in this encounter Visit Diagnoses Not on filedocumented in this encounter
--- OUTSIDE RECORDS SUMMARY | 2024-09-06 00:56 | XMS_ITS | Clinical Summary ---
Author Organization [facility] Address [address] [place] [address] Care Team Providers Care Manager Fine Dining Name Role Phone Unavailable Primary Care Provider Unavailabl e Source Comments [facility],non-owned Affiliates and Associated Physician Practices is amultiple site organization consisting of ambulatory clinics and hospital sitesin [place], [place], [place] and [place]. This disclosure is being madepursuant to the Care Everywhere program and may not contain all information available regarding this patient. Last updated 18.[facility] Social History Tobacco Use Types Packs/Day Years [...]
--- NOTE | 2024-09-06 05:21 | LDADM ---
This patient, Vera Pack, was admitted to Labor/Delivery/Recovery 119 on 09/06/24 at 05:21. Plans for labor, pain management and were discussed with patient. Patient/family oriented to hospital policies and general routines including ID bracelet, bed and alarms, visiting hours, pain management, procedures, bathroom and other care routines, personal items, smoking policy, room service/diet and guest tray routines, security routines, and visiting hours. Patient/Family are encouraged to report perceived risks to care and to ask questions if they do not understand what they are told or what they should do. See OBIX for further documentation.
[2024-09-06] MEDS: LACTATED RINGERS 1,000 ML 125 ML IV CONT ×2 (05:53→06:43)
[2024-09-06] MEDS: ACETAMINOPHEN 500 MG TABLET 1000 MG PO (06:28)
--- NOTE | 2024-09-06 06:40 | WPDANESEPPF ---
Anes - Initial Pre Proc Eval Procedure: Operation Date: 09/06/24 07:30 Proposed Procedures p Repeat Section with Tubal Ligation - Laurie Crawford MD Date/Time: 09/06/24 06:40 Surgeon: Laurie Crawford MD Pre Op Diagnosis: C/S Patient Data Age: 29 Gender: F Height: 1.55 m Weight: 93.63 kg Last Vital Signs Pulse 80 09/06/24 06:15 BP 131/79 09/06/24 06:15 Allergies Allergy/AdvReac Type Severity Reaction Status Date / Time Penicillins Allergy Hives Verified 08/21/24 13:04 shellfish derived Allergy Hives Verified 08/21/24 13:04 Home Medications ?Medication ?Instructions ?Recorded ?Confirmed ?Type insulin NPH isoph U-100 human 100 31 unit subcut BID 07/29/24 08/21/24 History unit/mL (3 mL) subcutaneous pen (Humulin N NPH U-100 Insulin KwikPen) insulin lispro 100 unit/mL 15 unit subcut BIDAC 07/29/24 08/21/24 History subcutaneous pen, sensor (Humalog Tempo Pen (U-100) Insulin) metformin 500 mg tablet,extended 500 mg PO BIDAC 07/29/24 08/21/24 History release 24 hr vit no.95-ferrous 1 tablet PO DAILY 07/29/24 08/21/24 History fumarate 28 mg-folic acid 800 mcg tablet () Patient hx anesthesia problems: none Family hx anesthesia problems: none Results Review: All pre-operative results and documents have been reviewed as part of the pre-operative evaluation. [facility] Past Medical History Medical History (Updated 09/06/24 @ 06:40 by Neftali Woods DO) Diabetes Family History Family History Mother Hypertension Grandparent Hypertension Grandparent Diabetes mellitus CHF (congestive heart failure) Father Diabetes mellitus Social History Social History Years smoked: 5 Smoking status: Former smoker Tobacco type: cigarettes Smoking end date: 05/23/22 Substance use: never Do You Feel Safe in your Home?: Yes Lack of Transportation: No Lack of Food: Never True Current Housing: I Have Housing Concerned About Future Housing: No Difficulty Paying Gas/Electric Bills: No Difficulty Paying for Meds: No Currently Unemployed: No Education: High School Diploma/GED Difficulty w/ Childcare or Family Care: No Spiritual care concerns: No Anes - Eval Final PreProcedure Day of Procedure 09/06/24 06:40 Patient weight: obese Heart: regular rate and rhythm Lungs: clear to auscultation and normal air movement Airway: Mallampati scale class II Neurological: alert and oriented Last oral intake: >/= 8 hours ASA classification: III Emergent: no Anesthetic plan: proceed Anesthesia type and monitoring: regional spinal and standard monitoring Results Review: All pre-operative results and documents have been reviewed as part of the pre-operative evaluation. Informed Consent: The patient's anesthetic plan and its attendant risks and benefits were discussed with the patient/family/POA. Questions were solicited and answers provided to the satisfaction of the patient/family/POA.
[2024-09-06 06:46] LABS: Glucose Point of Care 75 mg/dl (65-105)
--- NOTE | 2024-09-06 07:19 | WPDHPUPDATE1 ---
History and Physical Update Update Date/Time: 09/06/24 07:19 History and Physical has been reviewed, including an updated exam of the patient. There are NO changes in the patient's condition. Risks, benefits, and alternatives have been discussed and questions answered. Patient agrees to proceed with procedure.
[2024-09-06] MEDS: FAMOTIDINE 20 MG/2 ML VIAL IV PUSH (07:20)
[2024-09-06] MEDS: ONDANSETRON INJ 4 MG/2 ML VIAL IV PUSH (07:20)
--- NOTE | 2024-09-06 07:20 | P.HP_ITS ---
H&P: HPI History of Present Illness Date/Time: 09/06/24 07:20 Chief Complaint: Repeat and salpingectomy Narrative: The patient is a 29-year-old 4 para 1 abortus 2 at 39 weeks being admitted for repeat section with bilateral salpingectomy. The has been complicated by type 2 diabetes. The patient has had excellent sugar control and baby's growth has remained in the 40 to 58th percentile range. Nonstress tests have been reactive. labs A- positive, rubella immune, RPR negative, hepatitis-B surface antigen negative, HIV negative, group B strep negative. Review of Systems Review of Systems: not repeated day of surgery; patient states no changes in status PMFSH Past Medical History Medical History (Updated 09/06/24 @ 07:25 by Laurie Crawford MD) History of spontaneous History of ectopic Managed with methotrexate Anxiety Asthma Diabetes Diagnosed 2020 Surgical History Surgical History (Updated 09/06/24 @ 07:23 by Laurie rCawford MD) History of Family History Family History Mother Hypertension Grandparent Hypertension Grandparent Diabetes mellitus CHF (congestive heart failure) Father Diabetes mellitus Social History Social History Years smoked: 5 Smoking status: Former smoker Tobacco type: cigarettes Smoking end date: 05/23/22 Substance use: never Do You Feel Safe in your Home?: Yes Lack of Transportation: No Lack of Food: Never True Current Housing: I Have Housing Concerned About Future Housing: No Difficulty Paying Gas/Electric Bills: No Difficulty Paying for Meds: No Currently Unemployed: No Education: High School Diploma/GED Difficulty w/ Childcare or Family Care: No Spiritual care concerns: No Meds Home Medications and Allergies Home Medications ?Medication ?Instructions ?Recorded ?Confirmed ?Type insulin NPH isoph U-100 human 100 31 unit subcut BID 07/29/24 08/21/24 History unit/mL (3 mL) subcutaneous pen (Humulin N NPH U-100 Insulin KwikPen) insulin lispro 100 unit/mL 15 unit subcut BIDAC 07/29/24 08/21/24 History subcutaneous pen, sensor (Humalog Tempo Pen (U-100) Insulin) metformin 500 mg tablet,extended 500 mg PO BIDAC 07/29/24 08/21/24 History release 24 hr vit no.95-ferrous 1 tablet PO DAILY 07/29/24 08/21/24 History fumarate 28 mg-folic acid 800 mcg tablet () Allergies Allergy/AdvReac Type Severity Reaction Status Date / Time Penicillins Allergy Hives Verified 08/21/24 13:04 shellfish derived Allergy Hives Verified 08/21/24 13:04 Vital Signs Vital Signs - 24 hr 09/06/24 05:38 09/06/24 05:45 09/06/24 06:00 Pulse Rate 90 92 73 Blood Pressure 124/77 126/78 132/86 09/06/24 06:15 09/06/24 06:45 09/06/24 07:00 Pulse Rate 80 85 75 Blood Pressure 131/79 141/90 H Exam Const: General: comfortable, no acute distress and overweight (Pre weight 194 current weight is 206) Orientation/consciousness: patient oriented x3 Resp: Effort & Inspection: normal respiratory effort Auscultation: clear to auscultation bilaterally Cardio: Rate: regular rate GI: GI Palp: Yes Soft to palpation, No Tenderness to palpation present (GI) and Yes Other GI palpation findings present (Fundal high 40 cm) : External Female Exam: normal external appearance Speculum Exam - Vagina: normal appearance of the vagina and normal vaginal discharge Speculum Exam - Cervix: normal appearance of the cervix Bimanual exam- vagina & uterus: consistency normal Bimanual Exam- Adnexa, other: No adnexal tenderness Neuro: General: patient oriented x3 Assessment and Plan Assessment and plan (1) 39 weeks gestation of : Code(s): Z3A.39 - 39 weeks gestation of Status: Acute (2) Diabetes: Code(s): E11.9 - Type 2 diabetes mellitus without complications Status: Acute (3) History of : Code(s): Z98.891 - History of uterine scar from previous surgery Status: Acute Assessment and Plan: Plan to proceed with repeat section (4) Encounter for sterilization: Code(s): Z30.2 - Encounter for sterilization Status: Acute Assessment and Plan: Plan to proceed with bilateral salpingectomy
[2024-09-06] MEDS: ceFAZolin 2 GM/D5W 50 ML 2 GM/50 ML BAG IVPB (07:31)
--- NOTE | 2024-09-06 08:22 | P.PCNOB_ITS ---
OB - Delivery Note Procedure Delivery date: 09/06/24 Pre-op diagnosis: Diabetes Mellitus (Class B-type 2), Previous Delivery and Other (Request sterilization) Post-op Diagnosis: Same Induction method: None Delivery monitor: External FHT and External Uterine Prior to decision for section, ACOG/SM labor guidelines were considered and discussed with the patient and staff. Decision made to proceed with the section.: Yes Procedure Performed: Repeat Secondary branch: low cervical, transverse and Tubal Ligation (Bilateral salpingectomy) Surgeon: Laurie Crawford MD Anesthesia type: Spinal Description of Procedure/Findings: The patient was taken to the operating room and placed under anesthesia in the dorsal supine position with a leftward tilt. Once anesthesia was deemed adequate she was prepped and draped in the usual sterile fashion. A Pfannenstiel skin incision was made through the prior incision and carried down to the fascia. The Ochsner were used to tent the fascia which was dissected off using sharp dissection due to dense adhesions. The peritoneum is entered bluntly with the Peon. The rectus muscles were densely adherent to 1 another and the Fam scissors were used to incise the scar tissue. The incision was then extended with blunt traction minimally. Due to dense adhesions bilaterally the Bovie cautery was used on the peritoneal scar tissue as well as on the left rectus muscle that was very dense. The incision was then extended with blunt traction and additional space is obtained. The bladder blade was then placed. The vesicouterine peritoneum was tented with a Peon and entered with Metzenbaum scissors. The incision was made laterally with Metzenbaum scissors and extended with blunt traction. The bladder blade is replaced. The lower uterine segment was incised in a transverse fashion with the scalpel. The incision was extended with blunt traction. The cord was noted to be on top of the head. The head was delivered through the incision while the temporary administrative assistant applied fundal pressure and I guided the vertex. The infant was then fully delivered and the cord clamped and cut the infant handed to the waiting nursery nurse. There was a nuchal cord noted as well and a true knot. The placenta was removed using manual traction after cord gases and cord blood were taken. Uterus was cleared of all clots and debris and exteriorized. The uterine incision was closed using 0 Monocryl in a running locked fashion. Same suture was used to imbricate and good hemostasis is noted. The tubal ligation was verified again with the patient and she stated she wished to proceed. The right tube was grasped with a Genevieve and using a Z clamp the majority of the tube is cross clamped on the mesosalpinx. The tube was excised and the pedicle tied off using a Bety stitch of 0 Vicryl followed by a free tie 0 Vicryl under the knot. Identical procedure was performed on the left side. The incisions are inspected and noted to be hemostatic. The cul-de-sac and gutters are irrigated. The uterus was returned to the abdomen. The uterine incision was again inspected noted to be hemostatic. The rectus muscle that had been cauterized is inspected and noted to be hemostatic. The fascia was then closed using 0 Vicryl in a running fashion. Subcutaneous tissues were made hemostatic using Bovie cautery. Skin incision was closed using 3-0 Vicryl in a subcuticular fashion. Dermaflex was placed over the incision. Sponge, needle, and instrument counts are correct per the OR or staff. The patient was a taken to recovery in stable condition and the infant was taken to the nursery with pediatrics. Specimen: Yes (Bilateral tubes and placenta) Estimated Blood Loss: 250 Drains: Yes (Zuniga catheter) Packing: No Complications: No immediate complications Condition: Stable Disposition: PACU Baby Date of : 09/06/24 Gestational Age by Date: 39 Infant gender: Female Weight (pounds): 8 Weight (ounces): 3 presentation: vertex position: Right Occiput Anterior Placenta delivery description: Spontaneous Cord Vessel Description: 3 Vessels, Nuchal Cord, True Knot and Other (Cord on top of the head) score one minute: 8 score five minutes: 8
--- NOTE | 2024-09-06 08:29 | PM.OBDSVD ---
DS: Admitting Diagnosis Discharge Date 09/08/24 Admitting Diagnosis Intrauterine at 39 weeks Class B type 2 diabetic Previous section Requests sterilization DS: Discharge Diagnosis Discharge Diagnosis (1) Delivery of second by section using transverse incision of lower segment of uterus: Code(s): O82 - Encounter for delivery without indication Status: Acute (2) Diabetes: Code(s): E11.9 - Type 2 diabetes mellitus without complications Status: Acute (3) Elevated blood pressure reading: Code(s): R03.0 - Elevated blood-pressure reading, without diagnosis of hypertension Status: Acute Assessment and Plan: pp BP's 150's/90's follow up 2 days no PIH sx OB - DS: Summary OB Procedures : NST, Ultrasound and Other (Diabetic management) OB Procedures Intrapartum: low cervical, transverse and Tubal ligation (Bilateral salpingectomy) OB Procedures: : None Peripartum Data Delivery Method: Section Laceration Description: None Episiotomy description: None Procedures: Procedures Operation Date: 09/06/24 07:30 <No data on this case meets the specified criteria> complications: none Status at Discharge Functional status at discharge: independent ambulation Overall status at discharge: patient is progressing back to baseline Time Spent with Patient Time attestation: Total time spent providing and/or coordinating discharge services: DS: Data Data Completed and Pending Labs on day of discharge: Labs from last 24 hours 09/06/24 06:31 POC Capillary Glucose 75 Discharge Plan Discharge Attending physician on discharge: Laurie Crawford Discharging Clinician: Laurie Crawford Anticipated Discharge Date/Time: 09/09/24 08:31 Patient Disposition: Home, Self-Care Activity: may shower, may drive after 2 weeks and pelvic rest Diet: diabetic Wound Care Instructions: incision open to air Discharge Instructions: Education: Mom and Baby Guide Given to: Mother Follow-Up: Call your delivering provider's office for an appointment to be seen in: make an appointment for this Friday for a blood pressure check. BREAST CARE: * Wear a snug supportive bra. * For engorgement discomfort: Breast Feeding: * Apply warm moist washcloths * Express milk as needed to relieve engorgement * Wear loose clothing Bottle Feeding: * May apply ice packs * For sore nipples: * Identify correct latch-on * Apply warm moist washcloths before and after nursing * Air dry nipples after nursing * May apply Lansinoh cream to nipples ABDOMINAL INCISION: (if applicable) * Allow incision to air dry * Do NOT use lotions for powders on your incision * When showering, allow soap and water to run over the incision, but do not wash incision EPISIOTOMY/PERINEAL CARE: * Until bleeding stops, use your barb bottle after urinating * Change your pad frequently throughout the day * You may take sitz baths several times a day (fill your bathtub with warm water and soak for 20 minutes.) Do NOT bathe in the water * No tub baths until seen by your physician - You may shower ACTIVITY: * Rest as much as possible. * Do not exercise or lift anything heavier than your baby (such as laundry or other children.) * Avoid stairs or driving as much as possible. * Do not put anything into the vagina. No douching, tampons, or sexual activity until seen by physician. NOTIFY PHYSICIAN IF YOU HAVE ANY QUESTIONS OR IF ANY OF THE FOLLOWING SYMPTOMS OCCUR: * If your episiotomy or incision becomes red, swollen, or more painful than what you have experienced in the hospital. * If your vaginal bleeding becomes foul smelling. * If your vaginal bleeding becomes more heavy than a period or if your bleeding changes from pink to bright red. However, you may pass an occasional walnut-sized clot once or twice for the first week . * If you experience a sharp, shooting pain in you calves. * If you discover a hard, reddened area on your breast or if you experience flu-like symptoms. DIET: * Eat regular, well-balanced meals. * Drink plenty of fluids daily. If , drink to thirst. Patient Instructions: Antibiotic Form Patient Language: Citizen Of [place] Stand Alone Forms: General Discharge Information Follow-up/Referrals: Laurie Crawford MD [Physician] - 1 Week (And 6 weeks) Discharge Medications: Continued metformin 500 mg tablet extended release 24 hr 500 mg PO BIDAC Patient Comments: Takes before breakfast and evening meal PNV cmb#95-ferrous fumarate-FA [] 28 mg iron- 800 mcg tablet 1 tablet PO DAILY Discontinued Humalog Tempo Pen(U-100)Insuln 100 unit/mL insulin pen, sensor 15 unit SUBCUT BIDAC Patient Comments: Takes before breakfast and evening meal Humulin N NPH Insulin KwikPen 100 unit/mL (3 mL) insulin pen 31 unit SUBCUT BID Patient Comments: Takes before breakfast and before bed Date of admission: 09/06/24 05:21 Primary Care Provider: Sandy,Jorge Macias Admitting Provider: Laurie Crawford Attending physician on admission: Laurie Crawford Condition: Stable
[2024-09-06] MEDS: METHYLERGONOVINE MALEATE 0.2 MG/ML VIAL IM (08:37)
[2024-09-06] MEDS: miSOPROStol 200 MCG TABLET 800 MCG RECTAL (09:13)
[2024-09-06] MEDS: OXYTOCIN 30 UNITS/NS 500 ML 30 UNITS/500 ML BAG 999 UNITS IV CONT (09:16)
--- NOTE | 2024-09-06 09:21 | PM.OBPNVD ---
OB - PN: Subj Subjective Date/time seen: 09/06/24 09:21 Interval history: Called to patient's room for bleeding. Patient had [id number] clot and trickling of bleeding so she was given Methergine. Received a 2nd call for continued trickling of bleeding and passing of another. OB - PN: Obj Data Labs Labs: Laboratory Results - last 24 hr 09/06/24 06:31 POC Capillary Glucose 75 OB - PN A/P Assessment and Plan (1) bleeding: Code(s): O72.1 - Other immediate hemorrhage Status: Acute Assessment and Plan: Exam removed several clots from the cervix and lower uterine segment. The patient was also ordered 800mcg Cytotec. Vital signs remained stable. Time Spent With Patient Time: Total time spent is greater than 50% in coordination of care (as documented) at patient's floor/unit and/or counseling patient: Exam Narrative: Uterus firm U-2 Vaginal exam reveals clots to be in the cervix. These were manually removed. The clots were weighed and additional 220cc.
[2024-09-06] MEDS: OXYTOCIN 30 UNITS/NS 500 ML 30 UNITS/500 ML BAG 125 UNITS IV CONT (09:45)
[2024-09-06 10:01] LABS: Basophils Percent Auto 0.4 % (0.2-1.2); Eosinophils Percent Auto 0.5 % (0-4.4); Hematocrit 36.7 % (37.0-47.0); Hemoglobin 11.1 g/dL (12.0-15.0); Immature Granulocyte Absolute 0.03 K/mm3 (0.00-0.031); Immature Granulocyte Percent A 0.4 % (0-0.5); Lymphocytes Absolute Auto 1.82 K/mm3 (0.9-3.2); Lymphocytes Percent Auto 22.5 % (18.3-44.2); Mean Corpuscular HGB Conc 30.2 g/dl (32-36); Mean Corpuscular Hemoglobin 22.5 pg (26-34); Mean Corpuscular Volume 74.4 fl (80-100); Mean Platelet Volume 11.3 fl (7.4-10.4); Monocytes Absolute Auto 0.4 K/mm3 (0.1-0.6); Neutrophils Absolute Auto 5.8 K/mm3 (1.3-6.7); Neutrophils Percent Auto 71.2 % (45.5-73.1); Platelet Count Result 199 k/mm3 (150-375); Red Blood Count 4.93 M/mm3 (4.2-5.4); White Blood Count 8.1 K/mm3 (4.5-10.0)
[2024-09-06 10:24] LABS: Hypochromasia 1+; Microcytosis 1+ (NORMAL); Platelet Estimate Adequate (Adequate); Schistocytes None Seen
[2024-09-06 11:00] LABS: Glucose Point of Care 58 mg/dl (65-105)
--- NOTE | 2024-09-06 11:00 | SUR.PHASEI ---
Dr. Crawford at the bedside seeing the pt. okay with pt bleeding at this time. would like pt to remain on the unit for the time being. LR 250ml/hr for 1L order received.
[2024-09-06] MEDS: LACTATED RINGERS 1,000 ML 250 ML IV CONT (11:10)
--- NOTE | 2024-09-06 11:16 | PM.OBPNVD ---
OB - PN: Subj Subjective Date/time seen: 09/06/24 11:16 Interval history: Called to see patient again @ 930 for continued bleeding. Cervix cleared of more clots and Jaycee placed. 70 cc in canister and no active bleeding around device. OB - PN: Obj Data Labs 09/06/24 09:55 Labs: Laboratory Results - last 24 hr 09/06/24 09/06/24 09/06/24 06:31 09:55 10:58 WBC 8.1 RBC 4.93 Hgb 11.1 L Hct 36.7 L MCV 74.4 L MCH 22.5 L MCHC 30.2 L RDW 15.0 H Plt Count 199 MPV 11.3 H Immature Gran % (Auto) 0.4 Neut % (Auto) 71.2 Lymph % (Auto) 22.5 [place] % (Auto) 5.0 Eos % (Auto) 0.5 Baso % (Auto) 0.4 Lymph # (Auto) 1.82 [place] # (Auto) 0.4 Eos # (Auto) 0.0 Baso # (Auto) 0.0 Abs Immat Gran (auto) 0.03 Absolute Neuts (auto) 5.8 Absolute Nucleated RBC 0.000 Band Neutrophils % Not Reportable Nucleated RBC % 0.0 Platelet Estimate Adequate Hypochromasia 1+ Microcytosis 1+ Schistocytes None seen POC Capillary Glucose 75 58 L* OB - PN A/P Assessment and Plan (1) bleeding: Code(s): O72.1 - Other immediate hemorrhage Status: Acute Assessment and Plan: Continue to obs bleeding x hour in recovery. If no further bleeding, will move to pp. Time Spent With Patient Time: Total time spent is greater than 50% in coordination of care (as documented) at patient's floor/unit and/or counseling patient: Exam Narrative: inc c/d/i abdomen soft fundus firm U-2 perineum dried blood
[2024-09-06 12:24] LABS: Glucose Point of Care 58 mg/dl (65-105)
--- NOTE | 2024-09-06 12:35 | PC.NURSE ---
Dr. Crawford called with update on the pt. 140 QBL total since Jaycee placed at 0931 this AM. okay with pt going to the nursery to see baby and then continuing to the unit. Continue pt on suction with the Jaycee.
--- NOTE | 2024-09-06 13:44 | OBPPTRN ---
1311-Patient transferred to post room #281 via stretcher. Support person present. Oriented to unit, room, information board, rooming in, admission packet and security measures. Patient verbalizes understanding.
[2024-09-06] MEDS: SIMETHICONE 80 MG TAB.CHEW PO ×2 (14:44→17:00)
[2024-09-06] MEDS: ACETAMINOPHEN 325 MG TABLET 650 MG PO ×2 (14:45→20:40)
[2024-09-06] MEDS: LIDOCAINE 5% PATCH 1 PATCH TRANSDERM (14:46)
[2024-09-06] MEDS: DEXTROSE 5%/0.45% SOD CHL 1,000 ML 125 ML IV CONT (15:15)
[2024-09-06 16:09] LABS: Glucose Point of Care 119 mg/dl (65-105)
[2024-09-06] MEDS: DOCUSATE SODIUM 100 MG CAPSULE PO (17:00)
[2024-09-06] MEDS: diphenhydrAMINE HCl INJ 50 MG/ML VIAL 25 MG IV PUSH (19:50)
[2024-09-06 20:47] LABS: Glucose Point of Care 160 mg/dl (65-105)
[2024-09-07] MEDS: ACETAMINOPHEN 325 MG TABLET 650 MG PO ×4 (02:15→22:21)
[2024-09-07 02:20] VITALS: BP 135/92; PULSE 76; RESP 18; TEMP 36.4; O2SAT 100
[2024-09-07] MEDS: HYDROcodone/acetaminophen (*CRX) 10-325 MG TABLET 1 TAB PO (03:34)
[2024-09-07 04:50] LABS: Basophils Percent Auto 0.2 % (0.2-1.2); Eosinophils Absolute Auto 0.1 K/mm3 (0-0.3); Hematocrit 28.5 % (37.0-47.0); Hemoglobin 8.7 g/dL (12.0-15.0); Immature Granulocyte Absolute 0.02 K/mm3 (0.00-0.031); Immature Granulocyte Percent A 0.2 % (0-0.5); Lymphocytes Absolute Auto 1.57 K/mm3 (0.9-3.2); Lymphocytes Percent Auto 17.9 % (18.3-44.2); Mean Corpuscular HGB Conc 30.5 g/dl (32-36); Mean Corpuscular Hemoglobin 22.7 pg (26-34); Mean Corpuscular Volume 74.2 fl (80-100); Mean Platelet Volume 11.4 fl (7.4-10.4); Monocytes Absolute Auto 0.5 K/mm3 (0.1-0.6); Monocytes Percent Auto 6.2 % (2.6-8.5); Neutrophils Absolute Auto 6.5 K/mm3 (1.3-6.7); Neutrophils Percent Auto 74.5 % (45.5-73.1); Platelet Count Result 165 k/mm3 (150-375); Red Blood Count 3.84 M/mm3 (4.2-5.4); Red Cell Distribution Width 15.2 % (11.5-14.5); White Blood Count 8.8 K/mm3 (4.5-10.0)
[2024-09-07 05:22] LABS: Anisocytosis 1+; Platelet Estimate Adequate (Adequate)
[2024-09-07 05:23] LABS: Schistocytes None Seen
--- NOTE | 2024-09-07 07:26 | PC.NURSE ---
notified this RN at 0710 that she would be arriving in 30 minutes and asked this RN to discontinue suction and deflate the itzel. Itzel was deflated and suction was disconnected at 0715.
--- NOTE | 2024-09-07 07:52 | P.PNOB_ITS ---
OB - PN: Subj Subjective Date/time seen: 09/07/24 07:52 Interval history: Jaycee device removed. Old blood only on device. Patient comments: no complaints and pain well controlled baby status: NICU (on nasal canula) OB - PN: Obj Data Labs 09/07/24 03:33 Labs: Laboratory Results - last 24 hr 09/06/24 09/06/24 09/06/24 09:55 10:58 12:20 WBC 8.1 RBC 4.93 Hgb 11.1 L Hct 36.7 L MCV 74.4 L MCH 22.5 L MCHC 30.2 L RDW 15.0 H Plt Count 199 MPV 11.3 H Immature Gran % (Auto) 0.4 Neut % (Auto) 71.2 Lymph % (Auto) 22.5 Wagoner % (Auto) 5.0 Eos % (Auto) 0.5 Baso % (Auto) 0.4 Lymph # (Auto) 1.82 Wagoner # (Auto) 0.4 Eos # (Auto) 0.0 Baso # (Auto) 0.0 Abs Immat Gran (auto) 0.03 Absolute Neuts (auto) 5.8 Absolute Nucleated RBC 0.000 Band Neutrophils % Not Reportable Nucleated RBC % 0.0 Platelet Estimate Adequate Hypochromasia 1+ Anisocytosis Microcytosis 1+ Schistocytes None seen POC Capillary Glucose 58 L* 58 L* 09/06/24 09/06/24 09/07/24 16:02 20:39 03:33 WBC 8.8 RBC 3.84 L Hgb 8.7 L Hct 28.5 L MCV 74.2 L MCH 22.7 L MCHC 30.5 L RDW 15.2 H Plt Count 165 MPV 11.4 H Immature Gran % (Auto) 0.2 Neut % (Auto) 74.5 H Lymph % (Auto) 17.9 L Wagoner % (Auto) 6.2 Eos % (Auto) 1.0 Baso % (Auto) 0.2 Lymph # (Auto) 1.57 Wagoner # (Auto) 0.5 Eos # (Auto) 0.1 Baso # (Auto) 0.0 Abs Immat Gran (auto) 0.02 Absolute Neuts (auto) 6.5 Absolute Nucleated RBC 0.000 Band Neutrophils % Not Reportable Nucleated RBC % 0.0 Platelet Estimate Adequate Hypochromasia Anisocytosis 1+ Microcytosis Schistocytes None seen POC Capillary Glucose 119 H 160 H OB - PN A/P Assessment and Plan (1) Diabetes: Code(s): E11.9 - Type 2 diabetes mellitus without complications Status: Acute Assessment and Plan: Restart metformin Plan day: 1 Plan: routine care and other (observe bleeding and ambulation) Comments: pass to [facility] today Time Spent With Patient Time: Total time spent is greater than 50% in coordination of care (as documented) at patient's floor/unit and/or counseling patient: Review of Systems 2 Review of Systems: not repeated day of surgery; patient states no changes in status Exam 2 Narrative: inc c/d/i : Bimanual exam- vagina & uterus: other (Uterus firm, nt @U)
[2024-09-07 07:55] VITALS: BP 119/86; PULSE 78; RESP 18; TEMP 36.9; O2SAT 100
--- NOTE | 2024-09-07 08:00 | PC.NURSE ---
Breast pump provided overnight due to infants transfer to [facility]. Patient was assessed for correct placement, flange size, to pump for comfort and nipple stretching/stimulation for adequate milk production every 3 hours (8 times in 24 hours) 1-2 times at night. Patient states that she has her own breast pump at home for discharge and knows how to operate the pump. OP service information given to patient and communication board updated.
[2024-09-07 08:37] LABS: Glucose Point of Care 86 mg/dl (65-105)
[2024-09-07] MEDS: DOCUSATE SODIUM 100 MG CAPSULE PO (08:40)
[2024-09-07] MEDS: POLYSACCHARIDE IRON COMPLEX 150 MG CAPSULE PO (08:40)
[2024-09-07] MEDS: SIMETHICONE 80 MG TAB.CHEW PO ×3 (08:40→22:21)
[2024-09-07] MEDS: MULTIVIT/MIN/PREN/FOL AC/IRON TABLET 1 TAB PO (08:40)
[2024-09-07] MEDS: metFORMIN HCL XR 500 MG TAB.SR.24H PO ×2 (08:52→18:27)
[2024-09-07 10:01] LABS: Glucose Point of Care 201 mg/dl (65-105)
[2024-09-07] MEDS: INSULIN ASPART (*BKC) 100 UNITS/ML SUB-Q (10:13)
[2024-09-07] MEDS: IBUPROFEN 600 MG TABLET PO ×2 (14:02→22:21)
--- NOTE | 2024-09-07 14:10 | PC.NURSE ---
Patient left on pass at 1410 to visit at [facility].
--- NOTE | 2024-09-07 14:55 | WPDANLDPN2 ---
Anes-Prog Note L&D Date/Time: 09/07/24 14:55 Comfortable throughout: section Neuraxial method: spinal Epidural/Spinal procedure site: clean & non-tender Neuro status: Neuro function grossly intact. Cardiovascular status: normal Respiratory status: normal Airway patency: baseline Mental status: baseline Post-Op hydration status: normal Vital Signs: Last Vital Signs Temp 98.5 F 09/07/24 07:55 Pulse 78 09/07/24 07:55 Resp 18 09/07/24 07:55 BP 119/86 09/07/24 07:55 Pulse Ox 100 09/07/24 07:55 O2 Del Method Room Air 09/06/24 11:30 Pain score (VAS): 0/10 I/O: Intake & Output 09/06/24 09/07/24 09/07/24 23:59 07:59 15:59 Intake Total 2340 1400 240 Output Total 2700 3778 1100 Qiaunbc -009 -1375 -860 Post-procedural complaints: none Patient feedback: Patient satisfied with anesthetic care.
--- NOTE | 2024-09-07 14:56 | WPDANLDNPN2 ---
Anes-Prog Note L&D-Neuraxial Date/Time: 09/07/24 14:56 Neuraxial medications: intrathecal PF morphine Opiod-related complaints: none Patient feedback: Patient satisfied with post-operative pain management.
[2024-09-07] MEDS: HYDROcodone/acetaminophen (*CRX) 5-325 MG TABLET 1 TAB PO (18:26)
[2024-09-07] MEDS: LIDOCAINE 5% PATCH 1 PATCH TRANSDERM (18:36)
[2024-09-07 18:42] VITALS: BP 148/94; PULSE 74; RESP 16; TEMP 36.6; O2SAT 100
[2024-09-07 19:45] LABS: Glucose Point of Care 133 mg/dl (65-105)
[2024-09-07 20:12] LABS: Glucose Point of Care 164 mg/dl (65-105)
[2024-09-08] MEDS: ACETAMINOPHEN 325 MG TABLET 650 MG PO ×2 (04:25→10:25)
[2024-09-08] MEDS: IBUPROFEN 600 MG TABLET PO ×2 (04:25→10:25)
[2024-09-08 07:30] VITALS: BP 150/95; PULSE 73; RESP 16; TEMP 36.2; O2SAT 100
--- NOTE | 2024-09-08 07:41 | P.PNOB_ITS ---
OB - PN: Subj Subjective Date/time seen: 09/08/24 07:41 Interval history: No PIH sx. Daughter off O2 and feeding orally. Patient comments: no complaints and pain well controlled [place] baby status: doing well OB - PN: Obj Data Labs 09/07/24 03:33 Labs: Laboratory Results - last 24 hr 09/07/24 09/07/24 09/07/24 08:34 09:58 13:59 POC Capillary Glucose 86 201 H 133 H 09/07/24 20:08 POC Capillary Glucose 164 H OB - PN A/P Assessment and Plan (1) Diabetes: Code(s): E11.9 - Type 2 diabetes mellitus without complications Status: Acute Assessment and Plan: continue metformin and ADA diet (2) bleeding: Code(s): O72.1 - Other immediate hemorrhage Status: Acute Assessment and Plan: stable (3) Elevated blood pressure reading: Code(s): R03.0 - Elevated blood-pressure reading, without diagnosis of hypertension Status: Acute Assessment and Plan: last few BP elevated check [facility] labs BP q 2 hours and RN to call report at 2 pm Plan day: 2 Plan: routine care Time Spent With Patient Time: Total time spent is greater than 50% in coordination of care (as documented) at patient's floor/unit and/or counseling patient: Exam 2 Narrative: inc c/d/i abdomen soft, nt, no RUQ pain Const: General: comfortable and no acute distress
[2024-09-08 07:53] LABS: Glucose Point of Care 90 mg/dl (65-105)
[2024-09-08 07:53] LABS: Glucose Point of Care 82 mg/dl (65-105)
--- NOTE | 2024-09-08 08:00 | PC.NURSE ---
Consulted with mother concerning /pumping needs and she shared her ability to independently use the hospital grade breast pump without pain, she also has her own [employer] breast pump as well. Reinforced understanding of milk production, the need to use her breast pump at least 8 times per day with 1-2 times being at night, transition of milk, signs of adequate intake, transition of stool, prevention/relief of engorgement, plugged ducts, mastitis, community resources, and when to call a provider using the resource of the feeding sheet along with the mom and baby guide. Mother also given Low Milk Supply handout along with a pumping log, as she had that issue with her last baby. Mother voiced understanding of the information shared, is confident to continue effectively use her breast pump at home, when to call for assistance, denies any additional assistance or education at this time. Reported to the Primary RN.
[2024-09-08] MEDS: SIMETHICONE 80 MG TAB.CHEW PO (08:08)
[2024-09-08] MEDS: DOCUSATE SODIUM 100 MG CAPSULE PO (08:08)
[2024-09-08] MEDS: MULTIVIT/MIN/PREN/FOL AC/IRON TABLET 1 TAB PO (08:08)
[2024-09-08] MEDS: POLYSACCHARIDE IRON COMPLEX 150 MG CAPSULE PO (08:08)
[2024-09-08] MEDS: metFORMIN HCL XR 500 MG TAB.SR.24H PO (08:08)
[2024-09-08] MEDS: HYDROcodone/acetaminophen (*CRX) 5-325 MG TABLET 1 TAB PO ×2 (08:08→15:17)
[2024-09-08 08:14] LABS: Hematocrit 27.8 % (37.0-47.0); Hemoglobin 8.4 g/dL (12.0-15.0); Mean Corpuscular HGB Conc 30.2 g/dl (32-36); Mean Corpuscular Hemoglobin 22.6 pg (26-34); Mean Corpuscular Volume 74.9 fl (80-100); Mean Platelet Volume 11.4 fl (7.4-10.4); Platelet Count Result 181 k/mm3 (150-375); Red Blood Count 3.71 M/mm3 (4.2-5.4); Red Cell Distribution Width 15.4 % (11.5-14.5)
[2024-09-08 08:26] LABS: Alanine Aminotransferase 18 U/L (6-35); Albumin Level 2.7 g/dL (3.5-5.1); Alkaline Phosphatase 139 U/L (38-126); Anion Gap 5 mmol/L (4-12); Aspartate Amino Transferase 18 U/L (14-36); Bilirubin,Total < 0.1 mg/dL (0.2-1.3); Blood Urea Nitrogen 5 mg/dL (7-17); Calcium 8.3 mg/dL (8.4-10.2); Carbon Dioxide 26 mmol/L (22-30); Chloride 107 mmol/L (98-107); Estimated CRCL calculation 132 ml/min; Estimated Glomerular Filt Rate > 60; Glucose 90 mg/dL (65-110); Potassium 3.9 mmol/L (3.4-5.0); Sodium 138 mmol/L (137-145); Uric Acid 4.5 mg/dL (2.5-7.5)
[2024-09-08 09:30] VITALS: BP 143/89; PULSE 77; RESP 18; TEMP 36.8; O2SAT 100
[2024-09-08 11:45] VITALS: BP 153/87; PULSE 100; RESP 18; TEMP 36.4; O2SAT 67
[2024-09-08 13:45] VITALS: BP 150/85; PULSE 71; RESP 18; TEMP 36.3; O2SAT 100
== END 2024-09-08 15:24 | disposition home or self-care (01) | DRG 783 ==
LOC: ANHLDR 05:24 → ANHOB2 13:13
PROVIDERS: Admitting Provider Obstetrics & Gynecology Gynecology; PCP Physician Assistant; Visit Provider Obstetrics & Gynecology Gynecology
PROC: 10D00Z1 Extraction of Products of Conception, Low, Open Approach (ICD-10-PCS; CPT 59514; principal; 2024-09-06 07:30)
DX: O34.211 Maternal care for low transverse scar from previous cesarean delivery (principal); O24.12 Pre-existing type 2 diabetes mellitus, in childbirth; O72.1 Other immediate postpartum hemorrhage; Z37.0 Single live birth; Z3A.39 39 weeks gestation of pregnancy; Z30.2 Encounter for sterilization; O69.2XX0 Labor and delivery complicated by other cord entanglement, with compression, not applicable or unspecified; O90.89 Other complications of the puerperium, not elsewhere classified; R03.0 Elevated blood-pressure reading, without diagnosis of hypertension
CPT/HCPCS: 36415; 80053; 82948; 84550; 85025; 85027; 88302; A9270; J0690; J1200; J1815; J1885; J2210; J2274; J2405; J2590; J7120